=== PATIENT | female | born 1950 | race American Indian/Alaskan Native ===

== ENCOUNTER 2021-03-05 02:05 | Inpatient (IN) | payer MEDICARE ==
[2021-03-05] MEDS ORDERED: MELATONIN 5 MG TAB PO PRN (03:13)
[2021-03-05] MEDS ORDERED: LORazepam 2 MG/ML VIAL IM PRN (03:43)
[2021-03-05] MEDS ORDERED: HALOPERIDOL LACTATE 5 MG/1 ML INJ IM PRN (03:45)
[2021-03-05] MEDS ORDERED: LORazepam 2 MG/ML VIAL IM ONE (06:00)
--- NOTE | 2021-03-05 07:17 | History and Physical Report ---
GP History & Physical - History of Present Illness Date of admission: 03/04/21 Date of Examination: 03/05/21 Reason for Admission: Danger to self, Failure of Outpatient Treatment History of Present Illness: Bethanie Tracey is a 70y/o female patient who was admitted to [facility] for bizarre behavior and psychosis. During my evaluation of the patient she is uncooperative, argumentative. The patient appears paranoid and guarded. She refused to answer any questions. The patient tells me her name is not "Mrs Kovacs" and states she "does not have to tell me." PAST PSYCHIATRIC HISTORY: Could not obtain PAST MEDICAL HISTORY: None reported or document Family Psychiatric History: None reported or documented SOCIAL HISTORY Could not obtain REVIEW OF SYSTEMS Could not obtain MENTAL STATUS EXAMINATION could not obtain Assessment and Plan (1) Schizophrenia Current Visit: Yes Status: Acute Treatment Plan Patient admitted for inpatient psychiatric evaluation, medication adjustment and close monitoring The patient's behavior, mood, sleep and appetite will be closely monitored. Patient enrolled in individual and group therapeutic sessions and encouraged to attend. Patient provided with a safe and structured environment. Patient's physical health needs will be addressed by the Hospitalist. Hospitalist Consulted Labs including CBC, CMP, Lipid profile and Hemoglobin A1C levels ordered for baseline reference Social Assessment will be completed and the Engine Dispatcher will work with patient and family to ensure a suitable and safe disposition Medication adjustment will be made as clinically indicated Started Home meds Usual Wellness Faith/Preservation: - Start Trazodone 50 mg po QHS & 50 mg po QHS PRN between 10 PM & 2 AM for insomnia - Start Melatonin 5 mg po QHS to promote circadian rhythm The patient agreed on the treatment plan, understood the risk, benefit, alternative treatment, potential consequence of no treatment, and gave informed consent. Estimated days: 6 Post hospital care: primary care provider, psychiatric provider Case staffed with Dr. Naranjo Legal Status: Voluntary Reaction to Hospitalization: Accepting Medications and Allergies Allergies Allergy/AdvReac Type Severity Reaction Status Date / Time No Known Drug Allergies Allergy Unknown Verified 03/05/21 02:54 Home Medications Medication Instructions Recorded Confirmed Last Taken Type Benztropine [Cogentin] 1 mg PO DAILY 03/05/21 03/05/21 Unknown History OLANZapine [Zyprexa] 5 mg PO DAILY 03/05/21 03/05/21 Unknown History carBAMazepine [TEGretol] 200 mg PO BID 03/05/21 03/05/21 Unknown History lisinopriL [Lisinopril] 10 mg PO DAILY 03/05/21 03/05/21 Unknown History Active Meds: Active Medications Haloperidol Lactate (Haloperidol Lactate 5 Mg/1 Ml Inj) 5 mg IM Q6H PRN PRN Reason: Agitation Last Admin: 03/05/21 06:24 Dose: 5 mg Documented by: Lorazepam (Lorazepam 2 Mg/Ml Vial) 2 mg IM Q6H PRN PRN Reason: Agitation Melatonin (Melatonin 5 Mg Tab) 5 mg PO QHS PRN PRN Reason: Sleep Trazodone HCl (Trazodone 50 Mg Tab) 50 mg PO QHS KENJI Results - Results Labs/Vitals: Laboratory Last Values POC Glucose 72 mg/dL (70-105) 03/05/21 05:15 Last Vital Signs Temp 98.8 F 03/05/21 05:30 Pulse 140 H 03/05/21 05:30 Resp 20 03/05/21 05:30 BP 160/102 03/05/21 05:30 Pulse Ox 96 03/05/21 05:30 Physical Examination - Constitutional Vitals: Vital Signs Temp Pulse Resp BP Pulse Ox 98.8 F 140 H 20 160/102 96 03/05/21 05:30 03/05/21 05:30 03/05/21 05:30 03/05/21 05:30 03/05/21 05:30 Temperature -Last 24 Hours Temperature 98.8 F Temperature 98.8 F Mental Status Exam - Vital signs Last Vital Signs Temp 98.8 F 03/05/21 05:30 Pulse 140 H 03/05/21 05:30 Resp 20 03/05/21 05:30 BP 160/102 03/05/21 05:30 Pulse Ox 96 03/05/21 05:30 Physician Certification - Certification Statement Physician Certification Statement: This is an acknowledgement statement that BETHANIE TRACEY is a 70 year old F who requires inpatient psychiatric admission for treatment which could reasonably be expected to improve the patient's condition for Estimated period of time patient will need to remain in the hospital: [ ] Plan for post-hospital care: [ ]
[2021-03-05] MEDS ORDERED: LISINOPRIL 10 MG TAB PO SCH (10:00)
[2021-03-05] MEDS: carBAMazepine 200 MG TAB PO SCH ×2 (10:14→21:04)
[2021-03-05] MEDS: BENZTROPINE 1 MG TAB PO SCH (10:15)
[2021-03-05 11:12] LABS: Basophils % (Auto) 1.1 % (0.0-1.8); Eosinophils # (Auto) 0.1 K/mm3 (0.0-0.4); Eosinophils % (Auto) 2.6 % (0.0-4.3); Hematocrit 35.9 % (30.3-42.9); Hemoglobin 12.6 gm/dl (10.1-14.3); Lymphocytes # (Auto) 1.2 K/mm3 (1.2-5.4); Lymphocytes % (Auto) 30.3 % (13.4-35.0); Mean Corpuscular HGB Conc 35 % (30-34); Mean Corpuscular Volume 88 fl (79-97); Monocytes # (Auto) 0.2 K/mm3 (0.0-0.8); Monocytes % (Auto) 5.6 % (0.0-7.3); Platelet Count 218 K/mm3 (140-440); Red Blood Count 4.06 M/mm3 (3.65-5.03); Red Cell Distribution Width 13.4 % (13.2-15.2)
[2021-03-05 11:35] LABS: Albumin 3.1 g/dL (3.9-5); Blood Urea Nitrogen 19 mg/dL (7-17); Calcium 9.2 mg/dL (8.4-10.2); HDL Cholesterol 43 mg/dL (40-59); Hemolysis Index 10; LDL Cholesterol,Direct 159 mg/dL (50-130)
[2021-03-05 11:47] LABS: Alanine Aminotransferase < 5 units/L (7-56); BUN/Creatinine Ratio 27
[2021-03-05] MEDS ORDERED: hydrALAZINE 10 MG TAB PO PRN (15:21)
--- NOTE | 2021-03-05 15:24 | Consultation ---
History of Present Illness - Reason for Consult Consult date: 03/05/21 HTN Requesting physician: ESTRADA MELO - History of Present Illness Patient is a 70-year-old female with past medical history significant for paranoia, schizophrenia, prior history of hypokalemia who is being admitted to the [facility] psych unit for bizarre behavior and speech and aggressive behavior towards her . Patient was described as being uncooperative and argumentative appeared to be paranoid and guarded and to the psych team was not answering any questions. Admission her blood pressure was mildly elevated although improving today initial systolic blood pressure was 160 with diastolic of 102 Past History Past Medical History: hypertension, other (Bipolar, schizophrenia) Past Surgical History: Other Social history: no significant social history Family history: no significant family history Medications and Allergies Allergies Allergy/AdvReac Type Severity Reaction Status Date / Time No Known Drug Allergies Allergy Unknown Verified 03/05/21 02:54 Home Medications Medication Instructions Recorded Confirmed Last Taken Type Benztropine [Cogentin] 1 mg PO DAILY 03/05/21 03/05/[address] [DepaKOTE DR] 500 mg PO BID 03/05/21 03/05/21 Unknown History OLANZapine [Zyprexa] 5 mg PO DAILY 03/05/21 03/05/21 Unknown History Risperdal 1 mg PO DAILY 03/05/21 03/05/21 Unknown History carBAMazepine [TEGretol] 200 mg PO BID 03/05/21 03/05/21 Unknown History lisinopriL [Lisinopril] 10 mg PO DAILY 03/05/21 03/05/21 Unknown History Active Meds: Active Medications Benztropine Mesylate (Benztropine 1 Mg Tab) 1 mg PO DAILY [facility] Last Admin: 03/05/21 10:15 Dose: Not Given Documented by: Carbamazepine (Carbamazepine 200 Mg Tab) 200 mg PO BID [facility] Last Admin: 03/05/21 10:14 Dose: Not Given Documented by: Haloperidol Lactate (Haloperidol Lactate 5 Mg/1 Ml Inj) 5 mg IM Q6H PRN PRN Reason: Agitation Last Admin: 03/05/21 06:24 Dose: 5 mg Documented by: Lisinopril (Lisinopril 10 Mg Tab) 10 mg PO DAILY [facility] Last Admin: 03/05/21 10:14 Dose: Not Given Documented by: Lorazepam (Lorazepam 2 Mg/Ml Vial) 2 mg IM Q6H PRN PRN Reason: Agitation Melatonin (Melatonin 5 Mg Tab) 5 mg PO QHS PRN PRN Reason: Sleep Olanzapine (Olanzapine 5 Mg Tab) 5 mg PO DAILY [facility] Last Admin: 03/05/21 10:14 Dose: Not Given Documented by: Trazodone HCl (Trazodone 50 Mg Tab) 50 mg PO QHS KENJI Review of Systems ROS unobtainable: due to mental status Exam - Physical Exam Narrative exam: VITAL SIGNS: Reviewed. GENERAL: The patient appears normally developed, Vital signs as documented. HEAD: No signs of head trauma. EYES: Pupils are equal. Extraocular motions intact. EARS: Hearing grossly intact. MOUTH: Oropharynx is normal. NECK: No adenopathy, no JVD. CHEST: Chest with clear breath sounds bilaterally. No wheezes, rales, or rhonchi. CARDIAC: Regular rate and rhythm. S1 and S2, without murmurs, gallops, or rubs. VASCULAR: No Edema. Peripheral pulses normal and equal in all extremities. ABDOMEN: Soft, non tender and non distended. No rebound or guarding, and no masses palpated. Bowel Sounds normal. MUSCULOSKELETAL: Good range of motion of all major joints. Extremities without clubbing, cyanosis or edema. NEUROLOGIC EXAM: Alert although orientation could not be verified as patient withdrawn no focal sensory or strength deficits. PSYCHIATRIC: Mood normal. SKIN: detail exam as documented in skin assessment - Constitutional Vitals: Temp Pulse Resp BP Pulse Ox 98.8 F 67 17 152/70 95 03/05/21 08:46 03/05/21 10:14 03/05/21 08:46 03/05/21 10:14 03/05/21 08:47 Results - Labs CBC & Chem 7: 03/05/21 10:42 03/05/21 16:06 Labs: Abnormal lab results 03/05/21 03/05/21 03/05/21 Range/Units 10:42 10:42 11:51 WBC 4.1 L (4.5-11.0) K/mm3 MCHC 35 H (30-34) % BUN 19 H (7-17) mg/dL Glucose 60 L (65-100) mg/dL POC Glucose 132 H (70-105) mg/dL ALT < 5 L (7-56) units/L Total Protein 5.9 L (6.3-8.2) g/dL Albumin 3.1 L (3.9-5) g/dL Cholesterol 211 H (50-199) mg/dL LDL Cholesterol Direct 159 H (50-130) mg/dL Assessment and Plan Patient is a 70-year-old female with past medical history significant for paranoia, schizophrenia, prior history of hypokalemia who is being admitted to the [facility] psych unit for bizarre behavior and speech and aggressive behavior towards her . Patient was described as being uncooperative and argumentative appeared to be paranoid and guarded and to the psych team was not answering any questions. Admission her blood pressure was mildly elevated although improving today initial systolic blood pressure was 160 with diastolic of 102 Uncontrolled hypertension Schizophrenia Bipolar disorder Acute psychosis noW improving History of hypokalemia Plan -Continue supportive care -Increase lisinopril to 20 mg daily and add 10 mg of hydralazine every 6 hours as needed -Monitor potassium level intermittently while in the hospital -Continue appropriate psychiatric medications per psych team -DVT and GI prophylaxis with ambulation and diet respectively -Thank you for allowing us take part in the care of your patient as an information become available more therapeutic or diagnostic measures need to be presented please reconsult if needed.
[2021-03-05] MEDS: LISINOPRIL 10 MG TAB PO SCH (16:30)
[2021-03-05 16:48] LABS: BUN/Creatinine Ratio 23; Blood Urea Nitrogen 21 mg/dL (7-17); Calcium 9.3 mg/dL (8.4-10.2); Hemolysis Index 14
[2021-03-05] MEDS: traZODone 50 MG TAB PO SCH (21:03)
--- NOTE | 2021-03-06 09:10 | Progress Note ---
Subjective Date of service: 03/06/21 Subjective Comment: 03/06/2021: The patient was seen resting in bed. The patient refused to answer questions. Unable to assess SI/HI/AVHs. Per nurse, the patient is non compliant with medications. REVIEW OF SYSTEMS Could not obtain MENTAL STATUS EXAMINATION could not obtain Assessment and Plan (1) Schizophrenia Current Visit: Yes Status: Acute Treatment Plan Patient admitted for inpatient psychiatric evaluation, medication adjustment and close monitoring The patient's behavior, mood, sleep and appetite will be closely monitored. Patient enrolled in individual and group therapeutic sessions and encouraged to attend. Patient provided with a safe and structured environment. Patient's physical health needs will be addressed by the Hospitalist. Hospitalist Consulted Labs including CBC, CMP, Lipid profile and Hemoglobin A1C levels ordered for baseline reference Social Assessment will be completed and the Senior Front End Engineer will work with patient and family to ensure a suitable and safe disposition Medication adjustment will be made as clinically indicated Started Home meds Usual Wellness Zoroastrianism/Preservation: - Start Trazodone 50 mg po QHS & 50 mg po QHS PRN between 10 PM & 2 AM for insomnia - Start Melatonin 5 mg po QHS to promote circadian rhythm The patient agreed on the treatment plan, understood the risk, benefit, alternative treatment, potential consequence of no treatment, and gave informed consent. Estimated days: 6 Post hospital care: primary care provider, psychiatric provider Case staffed with Dr. Naranjo Legal Status: Voluntary Reaction to Hospitalization: Accepting Medications and Allergies Allergies Medications and Allergies Allergies Allergy/AdvReac Type Severity Reaction Status Date / Time No Known Drug Allergies Allergy Unknown Verified 03/05/21 02:54 Home Medications Medication Instructions Recorded Confirmed Last Taken Type Benztropine [Cogentin] 1 mg PO DAILY 03/05/21 03/05/21 Unknown History Divalproex [Serafin MONGE] 500 mg PO BID 03/05/21 03/05/21 Unknown History OLANZapine [Zyprexa] 5 mg PO DAILY 03/05/21 03/05/21 Unknown History Risperdal 1 mg PO DAILY 03/05/21 03/05/21 Unknown History carBAMazepine [TEGretol] 200 mg PO BID 03/05/21 03/05/21 Unknown History lisinopriL [Lisinopril] 10 mg PO DAILY 03/05/21 03/05/21 Unknown History Active Meds: Active Medications Benztropine Mesylate (Benztropine 1 Mg Tab) 1 mg PO DAILY [facility] Last Admin: 03/05/21 10:15 Dose: Not Given Documented by: Carbamazepine (Carbamazepine 200 Mg Tab) 200 mg PO BID [facility] Last Admin: 03/05/21 21:04 Dose: Not Given Documented by: Haloperidol (Haloperidol 5 Mg Tab) 5 mg PO BID [facility] Haloperidol Lactate (Haloperidol Lactate 5 Mg/1 Ml Inj) 5 mg IM Q6H PRN PRN Reason: Agitation Last Admin: 03/05/21 06:24 Dose: 5 mg Documented by: Haloperidol Lactate (Haloperidol Lactate 5 Mg/1 Ml Inj) 5 mg IM BID [facility] Hydralazine HCl (Hydralazine 10 Mg Tab) 10 mg PO Q6H PRN PRN Reason: Hypertension Lisinopril (Lisinopril 10 Mg Tab) 20 mg PO DAILY [facility] Last Admin: 03/05/21 16:30 Dose: Not Given Documented by: Lorazepam (Lorazepam 2 Mg/Ml Vial) 2 mg IM Q6H PRN PRN Reason: Agitation Melatonin (Melatonin 5 Mg Tab) 5 mg PO QHS PRN PRN Reason: Sleep Olanzapine (Olanzapine 5 Mg Tab) 5 mg PO DAILY [facility] Last Admin: 03/05/21 10:14 Dose: Not Given Documented by: Trazodone HCl (Trazodone 50 Mg Tab) 50 mg PO QHS [facility] Last Admin: 03/05/21 21:03 Dose: Not Given Documented by: Results - Results Labs/Vitals: Laboratory Last Values WBC 4.1 K/mm3 (4.5-11.0) L 03/05/21 10:42 RBC 4.06 M/mm3 (3.65-5.03) 03/05/21 10:42 Hgb 12.6 gm/dl (10.1-14.3) 03/05/21 10:42 Hct 35.9 % (30.3-42.9) 03/05/21 10:42 MCV 88 fl (79-97) 03/05/21 10:42 MCH 31 pg (28-32) 03/05/21 10:42 MCHC 35 % (30-34) H 03/05/21 10:42 RDW 13.4 % (13.2-15.2) 03/05/21 10:42 Plt Count 218 K/mm3 (140-440) 03/05/21 10:42 Lymph % (Auto) 30.3 % (13.4-35.0) 03/05/21 10:42 [place] % (Auto) 5.6 % (0.0-7.3) 03/05/21 10:42 Eos % (Auto) 2.6 % (0.0-4.3) 03/05/21 10:42 Baso % (Auto) 1.1 % (0.0-1.8) 03/05/21 10:42 Lymph # (Auto) 1.2 K/mm3 (1.2-5.4) 03/05/21 10:42 [place] # (Auto) 0.2 K/mm3 (0.0-0.8) 03/05/21 10:42 Eos # (Auto) 0.1 K/mm3 (0.0-0.4) 03/05/21 10:42 Baso # (Auto) 0.0 K/mm3 (0.0-0.1) 03/05/21 10:42 Seg Neutrophils % 60.4 % (40.0-70.0) 03/05/21 10:42 Seg Neutrophils # 2.5 K/mm3 (1.8-7.7) 03/05/21 10:42 Sodium 141 mmol/L (137-145) 03/05/21 16:06 Potassium 3.7 mmol/L (3.6-5.0) 03/05/21 16:06 Chloride 105.7 mmol/L (98-107) 03/05/21 16:06 Carbon Dioxide 29 mmol/L (22-30) 03/05/21 16:06 Anion Gap 10 mmol/L 03/05/21 16:06 BUN 21 mg/dL (7-17) H 03/05/21 16:06 Creatinine 0.9 mg/dL (0.6-1.2) 03/05/21 16:06 Estimated GFR > 60 ml/min 03/05/21 16:06 BUN/Creatinine Ratio 23 % 03/05/21 16:06 Glucose 111 mg/dL (65-100) H 03/05/21 16:06 POC Glucose 82 mg/dL (70-105) 03/06/21 06:03 Hemoglobin A1c 5.5 % (4-6) 03/05/21 10:42 Calcium 9.3 mg/dL (8.4-10.2) 03/05/21 16:06 Total Bilirubin 0.40 mg/dL (0.1-1.2) 03/05/21 10:42 AST 15 units/L (5-40) 03/05/21 10:42 ALT < 5 units/L (7-56) L 03/05/21 10:42 Alkaline Phosphatase 42 units/L (35-129) 03/05/21 10:42 Total Protein 5.9 g/dL (6.3-8.2) L 03/05/21 10:42 Albumin 3.1 g/dL (3.9-5) L 03/05/21 10:42 Albumin/Globulin Ratio 1.1 % 03/05/21 10:42 Triglycerides 99 mg/dL (2-149) 03/05/21 10:42 Cholesterol 211 mg/dL (50-199) H 03/05/21 10:42 LDL Cholesterol Direct 159 mg/dL (50-130) H 03/05/21 10:42 HDL Cholesterol 43 mg/dL (40-59) 03/05/21 10:42 Cholesterol/HDL Ratio 4.90 % 03/05/21 10:42 TSH 0.673 mlU/mL (0.270-4.200) 03/05/21 10:42 Last Vital Signs Temp 98.4 F 03/06/21 07:51 Pulse 59 L 03/06/21 07:51 Resp 16 03/06/21 07:51 BP 125/78 03/06/21 07:51 Pulse Ox 100 03/06/21 07:51
[2021-03-06] MEDS: BENZTROPINE 1 MG TAB PO SCH (11:26)
[2021-03-06] MEDS: HALOPERIDOL 5 MG TAB PO SCH ×2 (11:26→21:12)
[2021-03-06] MEDS: carBAMazepine 200 MG TAB PO SCH ×2 (11:27→21:12)
[2021-03-06] MEDS: LISINOPRIL 10 MG TAB PO SCH (11:27)
[2021-03-06] MEDS: HALOPERIDOL LACTATE 5 MG/1 ML INJ IM SCH (11:31)
[2021-03-06] MEDS: traZODone 50 MG TAB PO SCH (21:12)
[2021-03-07] MEDS: HALOPERIDOL LACTATE 5 MG/1 ML INJ IM SCH ×3 (03:02→21:06)
--- NOTE | 2021-03-07 08:09 | Progress Note ---
Subjective Date of service: 03/07/21 Subjective Comment: 03/06/2021: The patient was seen resting in bed. The patient refused to answer questions. Unable to assess SI/HI/AVHs. Per nurse, the patient is non compliant with medications. 03/07/2021: The patient was seen resting in bed, she continues to be mute. Unable to assess SI/HI/AVHs. Per nurse, the patient had a quiet night. No changes made today. REVIEW OF SYSTEMS Could not obtain MENTAL STATUS EXAMINATION could not obtain Assessment and Plan (1) Schizophrenia Current Visit: Yes Status: Acute Treatment Plan Patient admitted for inpatient psychiatric evaluation, medication adjustment and close monitoring The patient's behavior, mood, sleep and appetite will be closely monitored. Patient enrolled in individual and group therapeutic sessions and encouraged to attend. Patient provided with a safe and structured environment. Patient's physical health needs will be addressed by the Hospitalist. Hospitalist Consulted Labs including CBC, CMP, Lipid profile and Hemoglobin A1C levels ordered for baseline reference Social Assessment will be completed and the Auto Body Estimator will work with patient and family to ensure a suitable and safe disposition Medication adjustment will be made as clinically indicated Started Home meds Continue Haldol 5mg po BID and please give IM if patient refuse PO. Usual Wellness Bahai/Preservation: - Start Trazodone 50 mg po QHS & 50 mg po QHS PRN between 10 PM & 2 AM for insomnia - Start Melatonin 5 mg po QHS to promote circadian rhythm The patient agreed on the treatment plan, understood the risk, benefit, alternative treatment, potential consequence of no treatment, and gave informed consent. Estimated days: 4 Post hospital care: primary care provider, psychiatric provider Case staffed with Dr. Naranjo Legal Status: Voluntary Reaction to Hospitalization: Accepting Medications and Allergies Allergies Medications and Allergies Allergies Allergy/AdvReac Type Severity Reaction Status Date / Time No Known Drug Allergies Allergy Unknown Verified 03/05/21 02:54 Home Medications Medication Instructions Recorded Confirmed Last Taken Type Benztropine [Cogentin] 1 mg PO DAILY 03/05/21 03/05/21 Unknown History Divalproex [Serafin MONGE] 500 mg PO BID 03/05/21 03/05/21 Unknown History OLANZapine [Zyprexa] 5 mg PO DAILY 03/05/21 03/05/21 Unknown History Risperdal 1 mg PO DAILY 03/05/21 03/05/21 Unknown History carBAMazepine [TEGretol] 200 mg PO BID 03/05/21 03/05/21 Unknown History lisinopriL [Lisinopril] 10 mg PO DAILY 03/05/21 03/05/21 Unknown History Active Meds: Active Medications Benztropine Mesylate (Benztropine 1 Mg Tab) 1 mg PO DAILY [facility] Last Admin: 03/06/21 11:26 Dose: Not Given Documented by: Carbamazepine (Carbamazepine 200 Mg Tab) 200 mg PO BID [facility] Last Admin: 03/06/21 21:12 Dose: 200 mg Documented by: Haloperidol (Haloperidol 5 Mg Tab) 5 mg PO BID [facility] Last Admin: 03/06/21 21:12 Dose: 5 mg Documented by: Haloperidol Lactate (Haloperidol Lactate 5 Mg/1 Ml Inj) 5 mg IM Q6H PRN PRN Reason: Agitation Last Admin: 03/05/21 06:24 Dose: 5 mg Documented by: Haloperidol Lactate (Haloperidol Lactate 5 Mg/1 Ml Inj) 5 mg IM BID [facility] Last Admin: 03/07/21 03:02 Dose: Not Given Documented by: Hydralazine HCl (Hydralazine 10 Mg Tab) 10 mg PO Q6H PRN PRN Reason: Hypertension Lisinopril (Lisinopril 10 Mg Tab) 20 mg PO DAILY [facility] Last Admin: 03/06/21 11:27 Dose: Not Given Documented by: Lorazepam (Lorazepam 2 Mg/Ml Vial) 2 mg IM Q6H PRN PRN Reason: Agitation Melatonin (Melatonin 5 Mg Tab) 5 mg PO QHS PRN PRN Reason: Sleep Olanzapine (Olanzapine 5 Mg Tab) 5 mg PO DAILY [facility] Last Admin: 03/06/21 11:27 Dose: Not Given Documented by: Trazodone HCl (Trazodone 50 Mg Tab) 50 mg PO QHS [facility] Last Admin: 03/06/21 21:12 Dose: 50 mg Documented by: Results - Results Labs/Vitals: Laboratory Last Values WBC 4.1 K/mm3 (4.5-11.0) L 03/05/21 10:42 RBC 4.06 M/mm3 (3.65-5.03) 03/05/21 10:42 Hgb 12.6 gm/dl (10.1-14.3) 03/05/21 10:42 Hct 35.9 % (30.3-42.9) 03/05/21 10:42 MCV 88 fl (79-97) 03/05/21 10:42 MCH 31 pg (28-32) 03/05/21 10:42 MCHC 35 % (30-34) H 03/05/21 10:42 RDW 13.4 % (13.2-15.2) 03/05/21 10:42 Plt Count 218 K/mm3 (140-440) 03/05/21 10:42 Lymph % (Auto) 30.3 % (13.4-35.0) 03/05/21 10:42 [place] % (Auto) 5.6 % (0.0-7.3) 03/05/21 10:42 Eos % (Auto) 2.6 % (0.0-4.3) 03/05/21 10:42 Baso % (Auto) 1.1 % (0.0-1.8) 03/05/21 10:42 Lymph # (Auto) 1.2 K/mm3 (1.2-5.4) 03/05/21 10:42 [place] # (Auto) 0.2 K/mm3 (0.0-0.8) 03/05/21 10:42 Eos # (Auto) 0.1 K/mm3 (0.0-0.4) 03/05/21 10:42 Baso # (Auto) 0.0 K/mm3 (0.0-0.1) 03/05/21 10:42 Seg Neutrophils % 60.4 % (40.0-70.0) 03/05/21 10:42 Seg Neutrophils # 2.5 K/mm3 (1.8-7.7) 03/05/21 10:42 Sodium 141 mmol/L (137-145) 03/05/21 16:06 Potassium 3.7 mmol/L (3.6-5.0) 03/05/21 16:06 Chloride 105.7 mmol/L (98-107) 03/05/21 16:06 Carbon Dioxide 29 mmol/L (22-30) 03/05/21 16:06 Anion Gap 10 mmol/L 03/05/21 16:06 BUN 21 mg/dL (7-17) H 03/05/21 16:06 Creatinine 0.9 mg/dL (0.6-1.2) 03/05/21 16:06 Estimated GFR > 60 ml/min 03/05/21 16:06 BUN/Creatinine Ratio 23 % 03/05/21 16:06 Glucose 111 mg/dL (65-100) H 03/05/21 16:06 POC Glucose 93 mg/dL (70-105) 03/07/21 06:45 Hemoglobin A1c 5.5 % (4-6) 03/05/21 10:42 Calcium 9.3 mg/dL (8.4-10.2) 03/05/21 16:06 Total Bilirubin 0.40 mg/dL (0.1-1.2) 03/05/21 10:42 AST 15 units/L (5-40) 03/05/21 10:42 ALT < 5 units/L (7-56) L 03/05/21 10:42 Alkaline Phosphatase 42 units/L (35-129) 03/05/21 10:42 Total Protein 5.9 g/dL (6.3-8.2) L 03/05/21 10:42 Albumin 3.1 g/dL (3.9-5) L 03/05/21 10:42 Albumin/Globulin Ratio 1.1 % 03/05/21 10:42 Triglycerides 99 mg/dL (2-149) 03/05/21 10:42 Cholesterol 211 mg/dL (50-199) H 03/05/21 10:42 LDL Cholesterol Direct 159 mg/dL (50-130) H 03/05/21 10:42 HDL Cholesterol 43 mg/dL (40-59) 03/05/21 10:42 Cholesterol/HDL Ratio 4.90 % 03/05/21 10:42 TSH 0.673 mlU/mL (0.270-4.200) 03/05/21 10:42 Last Vital Signs Temp 97.5 F L 03/06/21 19:39 Pulse 73 03/06/21 19:39 Resp 18 03/06/21 19:39 BP 137/77 03/06/21 19:39 Pulse Ox 97 03/06/21 19:39
[2021-03-07] MEDS: HALOPERIDOL 5 MG TAB PO SCH ×2 (10:27→21:05)
[2021-03-07] MEDS: carBAMazepine 200 MG TAB PO SCH ×2 (10:27→21:05)
[2021-03-07] MEDS: BENZTROPINE 1 MG TAB PO SCH (10:27)
[2021-03-07] MEDS: LISINOPRIL 10 MG TAB PO SCH (10:27)
[2021-03-07] MEDS: traZODone 50 MG TAB PO SCH (21:05)
[2021-03-08] MEDS: carBAMazepine 200 MG TAB PO SCH ×2 (09:06→21:05)
[2021-03-08] MEDS: HALOPERIDOL 5 MG TAB PO SCH ×2 (09:06→21:05)
[2021-03-08] MEDS: BENZTROPINE 1 MG TAB PO SCH (09:07)
[2021-03-08] MEDS: LISINOPRIL 10 MG TAB PO SCH (09:07)
[2021-03-08] MEDS: HALOPERIDOL LACTATE 5 MG/1 ML INJ IM SCH (09:09)
--- NOTE | 2021-03-08 09:10 | Progress Note ---
Subjective Date of service: 03/08/21 Principal diagnosis: Schizophrenia Subjective Comment: The patient was seen today. She is avoidant and uncooperative. She is upset and tells me she was sleeping fine until I woke her up. She tells me her name is not Mrs. Kovacs. She refuses to answer any questions. REVIEW OF SYSTEMS Could not obtain MENTAL STATUS EXAMINATION could not obtain Assessment and Plan (1) Schizophrenia Current Visit: Yes Status: Acute Treatment Plan Patient admitted for inpatient psychiatric evaluation, medication adjustment and close monitoring The patient's behavior, mood, sleep and appetite will be closely monitored. Patient enrolled in individual and group therapeutic sessions and encouraged to attend. Patient provided with a safe and structured environment. Patient's physical health needs will be addressed by the Hospitalist. Hospitalist Consulted Labs including CBC, CMP, Lipid profile and Hemoglobin A1C levels ordered for baseline reference Social Assessment will be completed and the Biotechnician will work with patient and family to ensure a suitable and safe disposition Medication adjustment will be made as clinically indicated Will discuss with family about starting a long acting injection and wean off po antispychotics Usual Wellness Latter-Day/Preservation: - Start Trazodone 50 mg po QHS & 50 mg po QHS PRN between 10 PM & 2 AM for insomnia - Start Melatonin 5 mg po QHS to promote circadian rhythm The patient agreed on the treatment plan, understood the risk, benefit, alternative treatment, potential consequence of no treatment, and gave informed consent. Estimated days: 4 Post hospital care: primary care provider, psychiatric provider Case staffed with Dr. Naranjo Medications and Allergies Allergies Allergy/AdvReac Type Severity Reaction Status Date / Time No Known Drug Allergies Allergy Unknown Verified 03/05/21 02:54 Home Medications Medication Instructions Recorded Confirmed Last Taken Type Benztropine [Cogentin] 1 mg PO DAILY 03/05/21 03/05/21 Unknown History Divalproex [Serafin MONGE] 500 mg PO BID 03/05/21 03/05/21 Unknown History OLANZapine [Zyprexa] 5 mg PO DAILY 03/05/21 03/05/21 Unknown History Risperdal 1 mg PO DAILY 03/05/21 03/05/21 Unknown History carBAMazepine [TEGretol] 200 mg PO BID 03/05/21 03/05/21 Unknown History lisinopriL [Lisinopril] 10 mg PO DAILY 03/05/21 03/05/21 Unknown History Active Meds: Active Medications Benztropine Mesylate (Benztropine 1 Mg Tab) 1 mg PO DAILY [facility] Last Admin: 03/08/21 09:07 Dose: 1 mg Documented by: Carbamazepine (Carbamazepine 200 Mg Tab) 200 mg PO BID [facility] Last Admin: 03/08/21 09:06 Dose: 200 mg Documented by: Haloperidol (Haloperidol 5 Mg Tab) 5 mg PO BID [facility] Last Admin: 03/08/21 09:06 Dose: 5 mg Documented by: Haloperidol Lactate (Haloperidol Lactate 5 Mg/1 Ml Inj) 5 mg IM Q6H PRN PRN Reason: Agitation Last Admin: 03/05/21 06:24 Dose: 5 mg Documented by: Haloperidol Lactate (Haloperidol Lactate 5 Mg/1 Ml Inj) 5 mg IM BID [facility] Last Admin: 03/07/21 21:06 Dose: Not Given Documented by: Hydralazine HCl (Hydralazine 10 Mg Tab) 10 mg PO Q6H PRN PRN Reason: Hypertension Lisinopril (Lisinopril 10 Mg Tab) 20 mg PO DAILY [facility] Last Admin: 03/08/21 09:07 Dose: 20 mg Documented by: Lorazepam (Lorazepam 2 Mg/Ml Vial) 2 mg IM Q6H PRN PRN Reason: Agitation Melatonin (Melatonin 5 Mg Tab) 5 mg PO QHS PRN PRN Reason: Sleep Olanzapine (Olanzapine 5 Mg Tab) 5 mg PO DAILY [facility] Last Admin: 03/08/21 09:06 Dose: 5 mg Documented by: Trazodone HCl (Trazodone 50 Mg Tab) 50 mg PO QHS [facility] Last Admin: 03/07/21 21:05 Dose: 50 mg Documented by: Results - Results Labs/Vitals: Laboratory Last Values WBC 4.1 K/mm3 (4.5-11.0) L 03/05/21 10:42 RBC 4.06 M/mm3 (3.65-5.03) 03/05/21 10:42 Hgb 12.6 gm/dl (10.1-14.3) 03/05/21 10:42 Hct 35.9 % (30.3-42.9) 03/05/21 10:42 MCV 88 fl (79-97) 03/05/21 10:42 MCH 31 pg (28-32) 03/05/21 10:42 MCHC 35 % (30-34) H 03/05/21 10:42 RDW 13.4 % (13.2-15.2) 03/05/21 10:42 Plt Count 218 K/mm3 (140-440) 03/05/21 10:42 Lymph % (Auto) 30.3 % (13.4-35.0) 03/05/21 10:42 [place] % (Auto) 5.6 % (0.0-7.3) 03/05/21 10:42 Eos % (Auto) 2.6 % (0.0-4.3) 03/05/21 10:42 Baso % (Auto) 1.1 % (0.0-1.8) 03/05/21 10:42 Lymph # (Auto) 1.2 K/mm3 (1.2-5.4) 03/05/21 10:42 [place] # (Auto) 0.2 K/mm3 (0.0-0.8) 03/05/21 10:42 Eos # (Auto) 0.1 K/mm3 (0.0-0.4) 03/05/21 10:42 Baso # (Auto) 0.0 K/mm3 (0.0-0.1) 03/05/21 10:42 Seg Neutrophils % 60.4 % (40.0-70.0) 03/05/21 10:42 Seg Neutrophils # 2.5 K/mm3 (1.8-7.7) 03/05/21 10:42 Sodium 141 mmol/L (137-145) 03/05/21 16:06 Potassium 3.7 mmol/L (3.6-5.0) 03/05/21 16:06 Chloride 105.7 mmol/L (98-107) 03/05/21 16:06 Carbon Dioxide 29 mmol/L (22-30) 03/05/21 16:06 Anion Gap 10 mmol/L 03/05/21 16:06 BUN 21 mg/dL (7-17) H 03/05/21 16:06 Creatinine 0.9 mg/dL (0.6-1.2) 03/05/21 16:06 Estimated GFR > 60 ml/min 03/05/21 16:06 BUN/Creatinine Ratio 23 % 03/05/21 16:06 Glucose 111 mg/dL (65-100) H 03/05/21 16:06 POC Glucose 82 mg/dL (70-105) 03/08/21 08:00 Hemoglobin A1c 5.5 % (4-6) 03/05/21 10:42 Calcium 9.3 mg/dL (8.4-10.2) 03/05/21 16:06 Total Bilirubin 0.40 mg/dL (0.1-1.2) 03/05/21 10:42 AST 15 units/L (5-40) 03/05/21 10:42 ALT < 5 units/L (7-56) L 03/05/21 10:42 Alkaline Phosphatase 42 units/L (35-129) 03/05/21 10:42 Total Protein 5.9 g/dL (6.3-8.2) L 03/05/21 10:42 Albumin 3.1 g/dL (3.9-5) L 03/05/21 10:42 Albumin/Globulin Ratio 1.1 % 03/05/21 10:42 Triglycerides 99 mg/dL (2-149) 03/05/21 10:42 Cholesterol 211 mg/dL (50-199) H 03/05/21 10:42 LDL Cholesterol Direct 159 mg/dL (50-130) H 03/05/21 10:42 HDL Cholesterol 43 mg/dL (40-59) 03/05/21 10:42 Cholesterol/HDL Ratio 4.90 % 03/05/21 10:42 TSH 0.673 mlU/mL (0.270-4.200) 03/05/21 10:42 Last Vital Signs Temp 98.5 F 03/07/21 19:41 Pulse 89 03/08/21 09:07 Resp 16 03/07/21 19:41 BP 127/76 03/08/21 09:07 Pulse Ox 99 03/07/21 19:41
[2021-03-08] MEDS ORDERED: HALOPERIDOL DECANOATE 100 MG/1 ML INJ IM ONE (09:45)
--- NOTE | 2021-03-08 09:49 | Event Note ---
Date: 03/08/21 Spoke with the patient's spouse to discuss the patient's progress and treatment plan. He says the patient was on a monthly injection but he doesn't know the name of it. He says she hasn't had one in a couple of months, but states "some hospital gave it to her." I discussed with him restarting an injection: Haldol Decanoate, also giving the patient something to increase her appetite. The spouse was in agreement with plan and states the patient is non compliant and throws her medications away. Start Haldol Deconoate 50mg IM x 1 Start Remeron 7.5mg po qhs D/c Olanzapine
[2021-03-08] MEDS ORDERED: HALOPERIDOL LACTATE 5 MG/1 ML INJ IM PRN (10:00)
[2021-03-08] MEDS: traZODone 50 MG TAB PO SCH (21:05)
--- NOTE | 2021-03-09 09:21 | Progress Note ---
Subjective Date of service: 03/09/21 Principal diagnosis: Schizophrenia Subjective Comment: The patient was seen today. She is avoidant and uncooperative. She is still paranoid. She is irritable, and tells me to "stop fuing with her." She says my "name is not Mrs. Kovacs." She then says "I'm doing fine if you would leave me alone." She would not answer any more questions after this. REVIEW OF SYSTEMS Could not obtain MENTAL STATUS EXAMINATION could not obtain Assessment and Plan (1) Schizophrenia Current Visit: Yes Status: Acute Treatment Plan Patient admitted for inpatient psychiatric evaluation, medication adjustment and close monitoring The patient's behavior, mood, sleep and appetite will be closely monitored. Patient enrolled in individual and group therapeutic sessions and encouraged to attend. Patient provided with a safe and structured environment. Patient's physical health needs will be addressed by the Hospitalist. Hospitalist Consulted Labs including CBC, CMP, Lipid profile and Hemoglobin A1C levels ordered for baseline reference Social Assessment will be completed and the Switchboard Installer will work with patient and family to ensure a suitable and safe disposition Medication adjustment will be made as clinically indicated Haldol deconoate 50mg IM x 1 yesterday Usual Wellness Yazidi/Preservation: - Start Trazodone 50 mg po QHS & 50 mg po QHS PRN between 10 PM & 2 AM for insomnia - Start Melatonin 5 mg po QHS to promote circadian rhythm The patient agreed on the treatment plan, understood the risk, benefit, alternative treatment, potential consequence of no treatment, and gave informed consent. Estimated days: 4 Post hospital care: primary care provider, psychiatric provider Case staffed with Dr. Naranjo Medications and Allergies Allergies Allergy/AdvReac Type Severity Reaction Status Date / Time No Known Drug Allergies Allergy Unknown Verified 03/05/21 02:54 Home Medications Medication Instructions Recorded Confirmed Last Taken Type Benztropine [Cogentin] 1 mg PO DAILY 03/05/21 03/05/21 Unknown History Divalproex [Serafin MONGE] 500 mg PO BID 03/05/21 03/05/21 Unknown History OLANZapine [Zyprexa] 5 mg PO DAILY 03/05/21 03/05/21 Unknown History Risperdal 1 mg PO DAILY 03/05/21 03/05/21 Unknown History carBAMazepine [TEGretol] 200 mg PO BID 03/05/21 03/05/21 Unknown History lisinopriL [Lisinopril] 10 mg PO DAILY 03/05/21 03/05/21 Unknown History Active Meds: Active Medications Benztropine Mesylate (Benztropine 1 Mg Tab) 1 mg PO DAILY [facility] Last Admin: 03/08/21 09:07 Dose: 1 mg Documented by: Carbamazepine (Carbamazepine 200 Mg Tab) 200 mg PO BID [facility] Last Admin: 03/08/21 21:05 Dose: 200 mg Documented by: Haloperidol (Haloperidol 5 Mg Tab) 5 mg PO BID [facility] Last Admin: 03/08/21 21:05 Dose: 5 mg Documented by: Haloperidol Lactate (Haloperidol Lactate 5 Mg/1 Ml Inj) 5 mg IM Q6H PRN PRN Reason: Agitation Last Admin: 03/05/21 06:24 Dose: 5 mg Documented by: Haloperidol Lactate (Haloperidol Lactate 5 Mg/1 Ml Inj) 5 mg IM BID PRN PRN Reason: IF WONT TAKE ORAL MED Hydralazine HCl (Hydralazine 10 Mg Tab) 10 mg PO Q6H PRN PRN Reason: Hypertension Lisinopril (Lisinopril 10 Mg Tab) 20 mg PO DAILY [facility] Last Admin: 03/08/21 09:07 Dose: 20 mg Documented by: Lorazepam (Lorazepam 2 Mg/Ml Vial) 2 mg IM Q6H PRN PRN Reason: Agitation Melatonin (Melatonin 5 Mg Tab) 5 mg PO QHS PRN PRN Reason: Sleep Trazodone HCl (Trazodone 50 Mg Tab) 50 mg PO QHS [facility] Last Admin: 03/08/21 21:05 Dose: 50 mg Documented by: Results - Results Labs/Vitals: Laboratory Last Values WBC 4.1 K/mm3 (4.5-11.0) L 03/05/21 10:42 RBC 4.06 M/mm3 (3.65-5.03) 03/05/21 10:42 Hgb 12.6 gm/dl (10.1-14.3) 03/05/21 10:42 Hct 35.9 % (30.3-42.9) 03/05/21 10:42 MCV 88 fl (79-97) 03/05/21 10:42 MCH 31 pg (28-32) 03/05/21 10:42 MCHC 35 % (30-34) H 03/05/21 10:42 RDW 13.4 % (13.2-15.2) 03/05/21 10:42 Plt Count 218 K/mm3 (140-440) 03/05/21 10:42 Lymph % (Auto) 30.3 % (13.4-35.0) 03/05/21 10:42 [place] % (Auto) 5.6 % (0.0-7.3) 03/05/21 10:42 Eos % (Auto) 2.6 % (0.0-4.3) 03/05/21 10:42 Baso % (Auto) 1.1 % (0.0-1.8) 03/05/21 10:42 Lymph # (Auto) 1.2 K/mm3 (1.2-5.4) 03/05/21 10:42 [place] # (Auto) 0.2 K/mm3 (0.0-0.8) 03/05/21 10:42 Eos # (Auto) 0.1 K/mm3 (0.0-0.4) 03/05/21 10:42 Baso # (Auto) 0.0 K/mm3 (0.0-0.1) 03/05/21 10:42 Seg Neutrophils % 60.4 % (40.0-70.0) 03/05/21 10:42 Seg Neutrophils # 2.5 K/mm3 (1.8-7.7) 03/05/21 10:42 Sodium 141 mmol/L (137-145) 03/05/21 16:06 Potassium 3.7 mmol/L (3.6-5.0) 03/05/21 16:06 Chloride 105.7 mmol/L (98-107) 03/05/21 16:06 Carbon Dioxide 29 mmol/L (22-30) 03/05/21 16:06 Anion Gap 10 mmol/L 03/05/21 16:06 BUN 21 mg/dL (7-17) H 03/05/21 16:06 Creatinine 0.9 mg/dL (0.6-1.2) 03/05/21 16:06 Estimated GFR > 60 ml/min 03/05/21 16:06 BUN/Creatinine Ratio 23 % 03/05/21 16:06 Glucose 111 mg/dL (65-100) H 03/05/21 16:06 POC Glucose 82 mg/dL (70-105) 03/09/21 05:59 Hemoglobin A1c 5.5 % (4-6) 03/05/21 10:42 Calcium 9.3 mg/dL (8.4-10.2) 03/05/21 16:06 Total Bilirubin 0.40 mg/dL (0.1-1.2) 03/05/21 10:42 AST 15 units/L (5-40) 03/05/21 10:42 ALT < 5 units/L (7-56) L 03/05/21 10:42 Alkaline Phosphatase 42 units/L (35-129) 03/05/21 10:42 Total Protein 5.9 g/dL (6.3-8.2) L 03/05/21 10:42 Albumin 3.1 g/dL (3.9-5) L 03/05/21 10:42 Albumin/Globulin Ratio 1.1 % 03/05/21 10:42 Triglycerides 99 mg/dL (2-149) 03/05/21 10:42 Cholesterol 211 mg/dL (50-199) H 03/05/21 10:42 LDL Cholesterol Direct 159 mg/dL (50-130) H 03/05/21 10:42 HDL Cholesterol 43 mg/dL (40-59) 03/05/21 10:42 Cholesterol/HDL Ratio 4.90 % 03/05/21 10:42 TSH 0.673 mlU/mL (0.270-4.200) 03/05/21 10:42 Last Vital Signs Temp 98.4 F 03/08/21 19:27 Pulse 93 H 03/08/21 19:27 Resp 18 03/08/21 19:27 BP 142/91 03/08/21 19:27 Pulse Ox 99 03/08/21 19:27
[2021-03-09] MEDS: HALOPERIDOL 5 MG TAB PO SCH ×2 (09:25→21:07)
[2021-03-09] MEDS: LISINOPRIL 10 MG TAB PO SCH (09:25)
[2021-03-09] MEDS: BENZTROPINE 1 MG TAB PO SCH (09:25)
[2021-03-09] MEDS: carBAMazepine 200 MG TAB PO SCH ×2 (09:25→21:07)
[2021-03-09] MEDS: traZODone 50 MG TAB PO SCH (21:07)
[2021-03-09 22:20] LABS: BUN/Creatinine Ratio 23; Blood Urea Nitrogen 18 mg/dL (7-17); Calcium 9.1 mg/dL (8.4-10.2); Hemolysis Index 0
[2021-03-10] MEDS: HALOPERIDOL 5 MG TAB PO SCH ×2 (09:25→21:03)
[2021-03-10] MEDS: BENZTROPINE 1 MG TAB PO SCH (09:25)
[2021-03-10] MEDS: carBAMazepine 200 MG TAB PO SCH ×2 (09:25→21:03)
[2021-03-10] MEDS: LISINOPRIL 10 MG TAB PO SCH (09:25)
--- NOTE | 2021-03-10 10:23 | Progress Note ---
Subjective Date of service: 03/10/21 Principal diagnosis: Schizophrenia Subjective Comment: The patient was seen today. She is more cooperative and talkative today than yesterday, but she is still paranoid. She is irritable. She says "I'm not angry at nobody. I'm not gone let none of yall get me upset." She denies hallucination. She also denies SI/HI. She says "none of that is in my head." The patient does become irritable at me because I call her Mrs Kovacs. She says "that's not my name. Just call me what you want to call me. My name is not Bethanie." REVIEW OF SYSTEMS Could not obtain MENTAL STATUS EXAMINATION could not obtain Assessment and Plan (1) Schizophrenia Current Visit: Yes Status: Acute Treatment Plan Patient admitted for inpatient psychiatric evaluation, medication adjustment and close monitoring The patient's behavior, mood, sleep and appetite will be closely monitored. Patient enrolled in individual and group therapeutic sessions and encouraged to attend. Patient provided with a safe and structured environment. Patient's physical health needs will be addressed by the Hospitalist. Hospitalist Consulted Labs including CBC, CMP, Lipid profile and Hemoglobin A1C levels ordered for baseline reference Social Assessment will be completed and the Travel Registered Nurse Oncology will work with patient and family to ensure a suitable and safe disposition Medication adjustment will be made as clinically indicated Continue medications Usual Wellness Amish/Preservation: - Start Trazodone 50 mg po QHS & 50 mg po QHS PRN between 10 PM & 2 AM for insomnia - Start Melatonin 5 mg po QHS to promote circadian rhythm The patient agreed on the treatment plan, understood the risk, benefit, alternative treatment, potential consequence of no treatment, and gave informed consent. Estimated days: 4 Post hospital care: primary care provider, psychiatric provider Case staffed with Dr. Naranjo Medications and Allergies Allergies Allergy/AdvReac Type Severity Reaction Status Date / Time No Known Drug Allergies Allergy Unknown Verified 03/05/21 02:54 Home Medications Medication Instructions Recorded Confirmed Last Taken Type Benztropine [Cogentin] 1 mg PO DAILY 03/05/21 03/05/21 Unknown History Divalproex [Serafin MONGE] 500 mg PO BID 03/05/21 03/05/21 Unknown History OLANZapine [Zyprexa] 5 mg PO DAILY 03/05/21 03/05/21 Unknown History Risperdal 1 mg PO DAILY 03/05/21 03/05/21 Unknown History carBAMazepine [TEGretol] 200 mg PO BID 03/05/21 03/05/21 Unknown History lisinopriL [Lisinopril] 10 mg PO DAILY 03/05/21 03/05/21 Unknown History Active Meds: Active Medications Benztropine Mesylate (Benztropine 1 Mg Tab) 1 mg PO DAILY [facility] Last Admin: 03/10/21 09:25 Dose: 1 mg Documented by: Carbamazepine (Carbamazepine 200 Mg Tab) 200 mg PO BID [facility] Last Admin: 03/10/21 09:25 Dose: 200 mg Documented by: Haloperidol (Haloperidol 5 Mg Tab) 5 mg PO BID [facility] Last Admin: 03/10/21 09:25 Dose: 5 mg Documented by: Haloperidol Lactate (Haloperidol Lactate 5 Mg/1 Ml Inj) 5 mg IM Q6H PRN PRN Reason: Agitation Last Admin: 03/05/21 06:24 Dose: 5 mg Documented by: Haloperidol Lactate (Haloperidol Lactate 5 Mg/1 Ml Inj) 5 mg IM BID PRN PRN Reason: IF WONT TAKE ORAL MED Hydralazine HCl (Hydralazine 10 Mg Tab) 10 mg PO Q6H PRN PRN Reason: Hypertension Lisinopril (Lisinopril 10 Mg Tab) 20 mg PO DAILY [facility] Last Admin: 03/10/21 09:25 Dose: 20 mg Documented by: Lorazepam (Lorazepam 2 Mg/Ml Vial) 2 mg IM Q6H PRN PRN Reason: Agitation Melatonin (Melatonin 5 Mg Tab) 5 mg PO QHS PRN PRN Reason: Sleep Trazodone HCl (Trazodone 50 Mg Tab) 50 mg PO QHS [facility] Last Admin: 03/09/21 21:07 Dose: 50 mg Documented by: Results - Results Labs/Vitals: Laboratory Last Values WBC 4.1 K/mm3 (4.5-11.0) L 03/05/21 10:42 RBC 4.06 M/mm3 (3.65-5.03) 03/05/21 10:42 Hgb 12.6 gm/dl (10.1-14.3) 03/05/21 10:42 Hct 35.9 % (30.3-42.9) 03/05/21 10:42 MCV 88 fl (79-97) 03/05/21 10:42 MCH 31 pg (28-32) 03/05/21 10:42 MCHC 35 % (30-34) H 03/05/21 10:42 RDW 13.4 % (13.2-15.2) 03/05/21 10:42 Plt Count 218 K/mm3 (140-440) 03/05/21 10:42 Lymph % (Auto) 30.3 % (13.4-35.0) 03/05/21 10:42 [place] % (Auto) 5.6 % (0.0-7.3) 03/05/21 10:42 Eos % (Auto) 2.6 % (0.0-4.3) 03/05/21 10:42 Baso % (Auto) 1.1 % (0.0-1.8) 03/05/21 10:42 Lymph # (Auto) 1.2 K/mm3 (1.2-5.4) 03/05/21 10:42 [place] # (Auto) 0.2 K/mm3 (0.0-0.8) 03/05/21 10:42 Eos # (Auto) 0.1 K/mm3 (0.0-0.4) 03/05/21 10:42 Baso # (Auto) 0.0 K/mm3 (0.0-0.1) 03/05/21 10:42 Seg Neutrophils % 60.4 % (40.0-70.0) 03/05/21 10:42 Seg Neutrophils # 2.5 K/mm3 (1.8-7.7) 03/05/21 10:42 Sodium 143 mmol/L (137-145) 03/09/21 14:05 Potassium 4.3 mmol/L (3.6-5.0) 03/09/21 14:05 Chloride 103.0 mmol/L (98-107) 03/09/21 14:05 Carbon Dioxide 30 mmol/L (22-30) 03/09/21 14:05 Anion Gap 14 mmol/L 03/09/21 14:05 BUN 18 mg/dL (7-17) H 03/09/21 14:05 Creatinine 0.8 mg/dL (0.6-1.2) 03/09/21 14:05 Estimated GFR > 60 ml/min 03/09/21 14:05 BUN/Creatinine Ratio 23 % 03/09/21 14:05 Glucose 88 mg/dL (65-100) 03/09/21 14:05 POC Glucose 96 mg/dL (70-105) 03/10/21 06:24 Hemoglobin A1c 5.5 % (4-6) 03/05/21 10:42 Calcium 9.1 mg/dL (8.4-10.2) 03/09/21 14:05 Total Bilirubin 0.40 mg/dL (0.1-1.2) 03/05/21 10:42 AST 15 units/L (5-40) 03/05/21 10:42 ALT < 5 units/L (7-56) L 03/05/21 10:42 Alkaline Phosphatase 42 units/L (35-129) 03/05/21 10:42 Total Protein 5.9 g/dL (6.3-8.2) L 03/05/21 10:42 Albumin 3.1 g/dL (3.9-5) L 03/05/21 10:42 Albumin/Globulin Ratio 1.1 % 03/05/21 10:42 Triglycerides 99 mg/dL (2-149) 03/05/21 10:42 Cholesterol 211 mg/dL (50-199) H 03/05/21 10:42 LDL Cholesterol Direct 159 mg/dL (50-130) H 03/05/21 10:42 HDL Cholesterol 43 mg/dL (40-59) 03/05/21 10:42 Cholesterol/HDL Ratio 4.90 % 03/05/21 10:42 TSH 0.673 mlU/mL (0.270-4.200) 03/05/21 10:42 Last Vital Signs Temp 98.0 F 03/10/21 08:52 Pulse 82 03/10/21 09:25 Resp 18 03/10/21 08:52 BP 142/89 03/10/21 09:25 Pulse Ox 92 03/10/21 08:52
[2021-03-10] MEDS: traZODone 50 MG TAB PO SCH (21:03)
[2021-03-11] MEDS: carBAMazepine 200 MG TAB PO SCH ×2 (09:00→21:12)
[2021-03-11] MEDS: HALOPERIDOL 5 MG TAB PO SCH ×2 (09:00→21:13)
[2021-03-11] MEDS: LISINOPRIL 10 MG TAB PO SCH (09:00)
[2021-03-11] MEDS: BENZTROPINE 1 MG TAB PO SCH (09:00)
--- NOTE | 2021-03-11 09:54 | Discharge Summary ---
Providers - Providers Date of Admission: 03/05/21 04:19 Date of discharge: 03/11/21 Attending physician: ESTRADA MELO MD 03/05/21 02:55 Consult to Dietitian/Nutrition [CONS] Routine Physician Instructions: Possible for Low Sodium Diet Reason For Exam: Hx/o Hypertension Reason for Consult: Diet education Consult to Physician [CONS] Routine Comment: Consulting Provider: JOSHUA SALVADOR Physician Instructions: Manage pt existing condiitons Reason For Exam: New pt consult Primary care physician: DIRECTOR MARKET INTELLIGENCE Hospitalization Reason for admission: Schizophrenia Admitting Diagnosis: F20.9 - SCHIZOPHRENIA, UNSPECIFIED Condition: Stable Hospital course: The patient was provided inpatient psychiatric treatment with safe and supportive care, medication adjustment, adverse effect monitoring, medical evaluations, medical treatments, assessment and psycho-education. The patient's mood, cognition, behavior, moral support are improved and stabilized. St the time of discharge, the patient had no endangering behavior and no debilitating adverse effects. The patient agreed on potential consequences of no treatment and gave informed consent. 03/06/2021: The patient was seen resting in bed. The patient refused to answer questions. Unable to assess SI/HI/AVHs. Per nurse, the patient is non compliant with medications. 03/07/2021: The patient was seen resting in bed, she continues to be mute. Unable to assess SI/HI/AVHs. Per nurse, the patient had a quiet night. No changes made today. 03/08 The patient was seen today. She is avoidant and uncooperative. She is upset and tells me she was sleeping fine until I woke her up. She tells me her name is not Mrs. Kovacs. She refuses to answer any questions. Disposition: 01 HOME / SELF CARE / HOMELESS Time spent for discharge: 35 Allergies/Adverse Reactions: Allergies No Known Drug Allergies Allergy (Verified 03/05/21 02:54) Unknown Vital Signs: Last Vital Signs Temp 98.3 F 03/11/21 08:03 Pulse 94 H 03/11/21 09:00 Resp 18 03/11/21 08:03 BP 117/77 03/11/21 08:03 Pulse Ox 95 03/11/21 08:03 Last Lab: Laboratory Last Values WBC 4.1 K/mm3 (4.5-11.0) L 03/05/21 10:42 RBC 4.06 M/mm3 (3.65-5.03) 03/05/21 10:42 Hgb 12.6 gm/dl (10.1-14.3) 03/05/21 10:42 Hct 35.9 % (30.3-42.9) 03/05/21 10:42 MCV 88 fl (79-97) 03/05/21 10:42 MCH 31 pg (28-32) 03/05/21 10:42 MCHC 35 % (30-34) H 03/05/21 10:42 RDW 13.4 % (13.2-15.2) 03/05/21 10:42 Plt Count 218 K/mm3 (140-440) 03/05/21 10:42 Lymph % (Auto) 30.3 % (13.4-35.0) 03/05/21 10:42 [place] % (Auto) 5.6 % (0.0-7.3) 03/05/21 10:42 Eos % (Auto) 2.6 % (0.0-4.3) 03/05/21 10:42 Baso % (Auto) 1.1 % (0.0-1.8) 03/05/21 10:42 Lymph # (Auto) 1.2 K/mm3 (1.2-5.4) 03/05/21 10:42 [place] # (Auto) 0.2 K/mm3 (0.0-0.8) 03/05/21 10:42 Eos # (Auto) 0.1 K/mm3 (0.0-0.4) 03/05/21 10:42 Baso # (Auto) 0.0 K/mm3 (0.0-0.1) 03/05/21 10:42 Seg Neutrophils % 60.4 % (40.0-70.0) 03/05/21 10:42 Seg Neutrophils # 2.5 K/mm3 (1.8-7.7) 03/05/21 10:42 Sodium 143 mmol/L (137-145) 03/09/21 14:05 Potassium 4.3 mmol/L (3.6-5.0) 03/09/21 14:05 Chloride 103.0 mmol/L (98-107) 03/09/21 14:05 Carbon Dioxide 30 mmol/L (22-30) 03/09/21 14:05 Anion Gap 14 mmol/L 03/09/21 14:05 BUN 18 mg/dL (7-17) H 03/09/21 14:05 Creatinine 0.8 mg/dL (0.6-1.2) 03/09/21 14:05 Estimated GFR > 60 ml/min 03/09/21 14:05 BUN/Creatinine Ratio 23 % 03/09/21 14:05 Glucose 88 mg/dL (65-100) 03/09/21 14:05 POC Glucose 78 mg/dL (70-105) 03/11/21 06:15 Hemoglobin A1c 5.5 % (4-6) 03/05/21 10:42 Calcium 9.1 mg/dL (8.4-10.2) 03/09/21 14:05 Total Bilirubin 0.40 mg/dL (0.1-1.2) 03/05/21 10:42 AST 15 units/L (5-40) 03/05/21 10:42 ALT < 5 units/L (7-56) L 03/05/21 10:42 Alkaline Phosphatase 42 units/L (35-129) 03/05/21 10:42 Total Protein 5.9 g/dL (6.3-8.2) L 03/05/21 10:42 Albumin 3.1 g/dL (3.9-5) L 03/05/21 10:42 Albumin/Globulin Ratio 1.1 % 03/05/21 10:42 Triglycerides 99 mg/dL (2-149) 03/05/21 10:42 Cholesterol 211 mg/dL (50-199) H 03/05/21 10:42 LDL Cholesterol Direct 159 mg/dL (50-130) H 03/05/21 10:42 HDL Cholesterol 43 mg/dL (40-59) 03/05/21 10:42 Cholesterol/HDL Ratio 4.90 % 03/05/21 10:42 TSH 0.673 mlU/mL (0.270-4.200) 03/05/21 10:42 Core Measure Documentation - Palliative Care Palliative Care/ Comfort Measures: Not Applicable Exam - Constitutional Vitals: Temp Pulse Resp BP Pulse Ox 98.3 F 94 H 18 117/77 95 03/11/21 08:03 03/11/21 09:00 03/11/21 08:03 03/11/21 08:03 03/11/21 08:03 Plan Follow up with: PRIMARY MD HALLIE [Primary Care Provider] - 7 Days
--- NOTE | 2021-03-11 09:57 | Progress Note ---
Subjective Date of service: 03/11/21 Principal diagnosis: Schizophrenia Subjective Comment: The patient was seen today. She is lying down asleep. She easily arouses. She says she "already ate breakfast" when asking about her appetite. The patient says she slept good. She denies SI/HI or hallucinations of any kind. Reason for continued inpatient treatment: The patient is improving, but has episodes of paranoia and delusions. She was given Haldol deconoate to increase compliance and increase improvement. Will continue to treat and monitor. REVIEW OF SYSTEMS Could not obtain MENTAL STATUS EXAMINATION could not obtain Assessment and Plan (1) Schizophrenia Current Visit: Yes Status: Acute Treatment Plan Patient admitted for inpatient psychiatric evaluation, medication adjustment and close monitoring The patient's behavior, mood, sleep and appetite will be closely monitored. Patient enrolled in individual and group therapeutic sessions and encouraged to attend. Patient provided with a safe and structured environment. Patient's physical health needs will be addressed by the Hospitalist. Hospitalist Consulted Labs including CBC, CMP, Lipid profile and Hemoglobin A1C levels ordered for baseline reference Social Assessment will be completed and the Cell Plasterer will work with patient and family to ensure a suitable and safe disposition Medication adjustment will be made as clinically indicated Continue medications Usual Wellness Yazdanism/Preservation: - Start Trazodone 50 mg po QHS & 50 mg po QHS PRN between 10 PM & 2 AM for insomnia - Start Melatonin 5 mg po QHS to promote circadian rhythm The patient agreed on the treatment plan, understood the risk, benefit, alternative treatment, potential consequence of no treatment, and gave informed consent. Estimated days: 4 Post hospital care: primary care provider, psychiatric provider Case staffed with Dr. Naranjo Medications and Allergies Allergies Allergy/AdvReac Type Severity Reaction Status Date / Time No Known Drug Allergies Allergy Unknown Verified 03/05/21 02:54 Home Medications Medication Instructions Recorded Confirmed Last Taken Type Benztropine [Cogentin] 1 mg PO DAILY 03/05/21 03/05/21 Unknown History Divalproex [Serafin MONGE] 500 mg PO BID 03/05/21 03/05/21 Unknown History OLANZapine [Zyprexa] 5 mg PO DAILY 03/05/21 03/05/21 Unknown History Risperdal 1 mg PO DAILY 03/05/21 03/05/21 Unknown History carBAMazepine [TEGretol] 200 mg PO BID 03/05/21 03/05/21 Unknown History lisinopriL [Lisinopril] 10 mg PO DAILY 03/05/21 03/05/21 Unknown History Active Meds: Active Medications Benztropine Mesylate (Benztropine 1 Mg Tab) 1 mg PO DAILY [facility] Last Admin: 03/11/21 09:00 Dose: 1 mg Documented by: Carbamazepine (Carbamazepine 200 Mg Tab) 200 mg PO BID [facility] Last Admin: 03/11/21 09:00 Dose: 200 mg Documented by: Haloperidol (Haloperidol 5 Mg Tab) 5 mg PO BID [facility] Last Admin: 03/11/21 09:00 Dose: 5 mg Documented by: Haloperidol Lactate (Haloperidol Lactate 5 Mg/1 Ml Inj) 5 mg IM Q6H PRN PRN Reason: Agitation Last Admin: 03/05/21 06:24 Dose: 5 mg Documented by: Haloperidol Lactate (Haloperidol Lactate 5 Mg/1 Ml Inj) 5 mg IM BID PRN PRN Reason: IF WONT TAKE ORAL MED Hydralazine HCl (Hydralazine 10 Mg Tab) 10 mg PO Q6H PRN PRN Reason: Hypertension Lisinopril (Lisinopril 10 Mg Tab) 20 mg PO DAILY [facility] Last Admin: 03/11/21 09:00 Dose: 20 mg Documented by: Lorazepam (Lorazepam 2 Mg/Ml Vial) 2 mg IM Q6H PRN PRN Reason: Agitation Melatonin (Melatonin 5 Mg Tab) 5 mg PO QHS PRN PRN Reason: Sleep Trazodone HCl (Trazodone 50 Mg Tab) 50 mg PO QHS [facility] Last Admin: 03/10/21 21:03 Dose: 50 mg Documented by: Results - Results Labs/Vitals: Laboratory Last Values WBC 4.1 K/mm3 (4.5-11.0) L 03/05/21 10:42 RBC 4.06 M/mm3 (3.65-5.03) 03/05/21 10:42 Hgb 12.6 gm/dl (10.1-14.3) 03/05/21 10:42 Hct 35.9 % (30.3-42.9) 03/05/21 10:42 MCV 88 fl (79-97) 03/05/21 10:42 MCH 31 pg (28-32) 03/05/21 10:42 MCHC 35 % (30-34) H 03/05/21 10:42 RDW 13.4 % (13.2-15.2) 03/05/21 10:42 Plt Count 218 K/mm3 (140-440) 03/05/21 10:42 Lymph % (Auto) 30.3 % (13.4-35.0) 03/05/21 10:42 [place] % (Auto) 5.6 % (0.0-7.3) 03/05/21 10:42 Eos % (Auto) 2.6 % (0.0-4.3) 03/05/21 10:42 Baso % (Auto) 1.1 % (0.0-1.8) 03/05/21 10:42 Lymph # (Auto) 1.2 K/mm3 (1.2-5.4) 03/05/21 10:42 [place] # (Auto) 0.2 K/mm3 (0.0-0.8) 03/05/21 10:42 Eos # (Auto) 0.1 K/mm3 (0.0-0.4) 03/05/21 10:42 Baso # (Auto) 0.0 K/mm3 (0.0-0.1) 03/05/21 10:42 Seg Neutrophils % 60.4 % (40.0-70.0) 03/05/21 10:42 Seg Neutrophils # 2.5 K/mm3 (1.8-7.7) 03/05/21 10:42 Sodium 143 mmol/L (137-145) 03/09/21 14:05 Potassium 4.3 mmol/L (3.6-5.0) 03/09/21 14:05 Chloride 103.0 mmol/L (98-107) 03/09/21 14:05 Carbon Dioxide 30 mmol/L (22-30) 03/09/21 14:05 Anion Gap 14 mmol/L 03/09/21 14:05 BUN 18 mg/dL (7-17) H 03/09/21 14:05 Creatinine 0.8 mg/dL (0.6-1.2) 03/09/21 14:05 Estimated GFR > 60 ml/min 03/09/21 14:05 BUN/Creatinine Ratio 23 % 03/09/21 14:05 Glucose 88 mg/dL (65-100) 03/09/21 14:05 POC Glucose 78 mg/dL (70-105) 03/11/21 06:15 Hemoglobin A1c 5.5 % (4-6) 03/05/21 10:42 Calcium 9.1 mg/dL (8.4-10.2) 03/09/21 14:05 Total Bilirubin 0.40 mg/dL (0.1-1.2) 03/05/21 10:42 AST 15 units/L (5-40) 03/05/21 10:42 ALT < 5 units/L (7-56) L 03/05/21 10:42 Alkaline Phosphatase 42 units/L (35-129) 03/05/21 10:42 Total Protein 5.9 g/dL (6.3-8.2) L 03/05/21 10:42 Albumin 3.1 g/dL (3.9-5) L 03/05/21 10:42 Albumin/Globulin Ratio 1.1 % 03/05/21 10:42 Triglycerides 99 mg/dL (2-149) 03/05/21 10:42 Cholesterol 211 mg/dL (50-199) H 03/05/21 10:42 LDL Cholesterol Direct 159 mg/dL (50-130) H 03/05/21 10:42 HDL Cholesterol 43 mg/dL (40-59) 03/05/21 10:42 Cholesterol/HDL Ratio 4.90 % 03/05/21 10:42 TSH 0.673 mlU/mL (0.270-4.200) 03/05/21 10:42 Last Vital Signs Temp 98.3 F 03/11/21 08:03 Pulse 94 H 03/11/21 09:00 Resp 18 03/11/21 08:03 BP 117/77 03/11/21 08:03 Pulse Ox 95 03/11/21 08:03
[2021-03-11] MEDS: traZODone 50 MG TAB PO SCH (21:12)
[2021-03-12] MEDS: BENZTROPINE 1 MG TAB PO SCH (09:07)
[2021-03-12] MEDS: carBAMazepine 200 MG TAB PO SCH ×2 (09:07→21:08)
[2021-03-12] MEDS: LISINOPRIL 10 MG TAB PO SCH (09:07)
[2021-03-12] MEDS: HALOPERIDOL 5 MG TAB PO SCH ×2 (09:07→21:08)
--- NOTE | 2021-03-12 09:47 | Progress Note ---
Subjective Date of service: 03/12/21 Principal diagnosis: Schizophrenia Subjective Comment: The patient was seen today. She is lying down asleep. She easily arouses. The patient is easily irritable. She says she slept well. She denies SI/HI or hallucinations. Reason for continued inpatient treatment: The patient is improving. She is awaiting placement because the spouse can no longer care for her according to the . REVIEW OF SYSTEMS Could not obtain MENTAL STATUS EXAMINATION could not obtain Assessment and Plan (1) Schizophrenia Current Visit: Yes Status: Acute Treatment Plan Patient admitted for inpatient psychiatric evaluation, medication adjustment and close monitoring The patient's behavior, mood, sleep and appetite will be closely monitored. Patient enrolled in individual and group therapeutic sessions and encouraged to attend. Patient provided with a safe and structured environment. Patient's physical health needs will be addressed by the Hospitalist. Hospitalist Consulted Labs including CBC, CMP, Lipid profile and Hemoglobin A1C levels ordered for [facility] Social Assessment will be completed and the Forest Science Professor will work with patient and family to ensure a suitable and safe disposition Medication adjustment will be made as clinically indicated Continue medications Usual Wellness Religious/Preservation: - Start Trazodone 50 mg po QHS & 50 mg po QHS PRN between 10 PM & 2 AM for insomnia - Start Melatonin 5 mg po QHS to promote circadian rhythm The patient agreed on the treatment plan, understood the risk, benefit, alternative treatment, potential consequence of no treatment, and gave informed consent. Estimated days: 4 Post hospital care: primary care provider, psychiatric provider Case staffed with Dr. Naranjo Medications and Allergies Allergies Allergy/AdvReac Type Severity Reaction Status Date / Time No Known Drug Allergies Allergy Unknown Verified 03/05/21 02:54 Home Medications Medication Instructions Recorded Confirmed Last Taken Type Benztropine [Cogentin] 1 mg PO DAILY 03/05/21 03/05/21 Unknown History Divalproex [Serafin MONGE] 500 mg PO BID 03/05/21 03/05/21 Unknown History OLANZapine [Zyprexa] 5 mg PO DAILY 03/05/21 03/05/21 Unknown History Risperdal 1 mg PO DAILY 03/05/21 03/05/21 Unknown History carBAMazepine [TEGretol] 200 mg PO BID 03/05/21 03/05/21 Unknown History lisinopriL [Lisinopril] 10 mg PO DAILY 03/05/21 03/05/21 Unknown History Active Meds: Active Medications Benztropine Mesylate (Benztropine 1 Mg Tab) 1 mg PO DAILY [facility] Last Admin: 03/12/21 09:07 Dose: 1 mg Documented by: Carbamazepine (Carbamazepine 200 Mg Tab) 200 mg PO BID [facility] Last Admin: 03/12/21 09:07 Dose: 200 mg Documented by: Haloperidol (Haloperidol 5 Mg Tab) 5 mg PO BID [facility] Last Admin: 03/12/21 09:07 Dose: 5 mg Documented by: Haloperidol Lactate (Haloperidol Lactate 5 Mg/1 Ml Inj) 5 mg IM Q6H PRN PRN Reason: Agitation Last Admin: 03/05/21 06:24 Dose: 5 mg Documented by: Haloperidol Lactate (Haloperidol Lactate 5 Mg/1 Ml Inj) 5 mg IM BID PRN PRN Reason: IF WONT TAKE ORAL MED Hydralazine HCl (Hydralazine 10 Mg Tab) 10 mg PO Q6H PRN PRN Reason: Hypertension Lisinopril (Lisinopril 10 Mg Tab) 20 mg PO DAILY [facility] Last Admin: 03/12/21 09:07 Dose: 20 mg Documented by: Lorazepam (Lorazepam 2 Mg/Ml Vial) 2 mg IM Q6H PRN PRN Reason: Agitation Melatonin (Melatonin 5 Mg Tab) 5 mg PO QHS PRN PRN Reason: Sleep Trazodone HCl (Trazodone 50 Mg Tab) 50 mg PO QHS [facility] Last Admin: 03/11/21 21:12 Dose: 50 mg Documented by: Results - Results Labs/Vitals: Laboratory Last Values WBC 4.1 K/mm3 (4.5-11.0) L 03/05/21 10:42 RBC 4.06 M/mm3 (3.65-5.03) 03/05/21 10:42 Hgb 12.6 gm/dl (10.1-14.3) 03/05/21 10:42 Hct 35.9 % (30.3-42.9) 03/05/21 10:42 MCV 88 fl (79-97) 03/05/21 10:42 MCH 31 pg (28-32) 03/05/21 10:42 MCHC 35 % (30-34) H 03/05/21 10:42 RDW 13.4 % (13.2-15.2) 03/05/21 10:42 Plt Count 218 K/mm3 (140-440) 03/05/21 10:42 Lymph % (Auto) 30.3 % (13.4-35.0) 03/05/21 10:42 [place] % (Auto) 5.6 % (0.0-7.3) 03/05/21 10:42 Eos % (Auto) 2.6 % (0.0-4.3) 03/05/21 10:42 Baso % (Auto) 1.1 % (0.0-1.8) 03/05/21 10:42 Lymph # (Auto) 1.2 K/mm3 (1.2-5.4) 03/05/21 10:42 [place] # (Auto) 0.2 K/mm3 (0.0-0.8) 03/05/21 10:42 Eos # (Auto) 0.1 K/mm3 (0.0-0.4) 03/05/21 10:42 Baso # (Auto) 0.0 K/mm3 (0.0-0.1) 03/05/21 10:42 Seg Neutrophils % 60.4 % (40.0-70.0) 03/05/21 10:42 Seg Neutrophils # 2.5 K/mm3 (1.8-7.7) 03/05/21 10:42 Sodium 143 mmol/L (137-145) 03/09/21 14:05 Potassium 4.3 mmol/L (3.6-5.0) 03/09/21 14:05 Chloride 103.0 mmol/L (98-107) 03/09/21 14:05 Carbon Dioxide 30 mmol/L (22-30) 03/09/21 14:05 Anion Gap 14 mmol/L 03/09/21 14:05 BUN 18 mg/dL (7-17) H 03/09/21 14:05 Creatinine 0.8 mg/dL (0.6-1.2) 03/09/21 14:05 Estimated GFR > 60 ml/min 03/09/21 14:05 BUN/Creatinine Ratio 23 % 03/09/21 14:05 Glucose 88 mg/dL (65-100) 03/09/21 14:05 POC Glucose 79 mg/dL (70-105) 03/12/21 07:14 Hemoglobin A1c 5.5 % (4-6) 03/05/21 10:42 Calcium 9.1 mg/dL (8.4-10.2) 03/09/21 14:05 Total Bilirubin 0.40 mg/dL (0.1-1.2) 03/05/21 10:42 AST 15 units/L (5-40) 03/05/21 10:42 ALT < 5 units/L (7-56) L 03/05/21 10:42 Alkaline Phosphatase 42 units/L (35-129) 03/05/21 10:42 Total Protein 5.9 g/dL (6.3-8.2) L 03/05/21 10:42 Albumin 3.1 g/dL (3.9-5) L 03/05/21 10:42 Albumin/Globulin Ratio 1.1 % 03/05/21 10:42 Triglycerides 99 mg/dL (2-149) 03/05/21 10:42 Cholesterol 211 mg/dL (50-199) H 03/05/21 10:42 LDL Cholesterol Direct 159 mg/dL (50-130) H 03/05/21 10:42 HDL Cholesterol 43 mg/dL (40-59) 03/05/21 10:42 Cholesterol/HDL Ratio 4.90 % 03/05/21 10:42 TSH 0.673 mlU/mL (0.270-4.200) 03/05/21 10:42 Last Vital Signs Temp 98.9 F 03/12/21 07:27 Pulse 81 03/12/21 09:07 Resp 16 03/12/21 07:27 BP 139/72 03/12/21 09:07 Pulse Ox 99 03/12/21 07:27
[2021-03-12] MEDS: traZODone 50 MG TAB PO SCH (21:08)
[2021-03-13 08:28] VITALS: BP 119/81
--- NOTE | 2021-03-13 09:37 | Discharge Summary ---
Providers - Providers Date of Admission: 03/05/21 04:19 Date of discharge: 03/13/21 Attending physician: ESTRADA MELO MD 03/05/21 02:55 Consult to Dietitian/Nutrition [CONS] Routine Physician Instructions: Possible for Low Sodium Diet Reason For Exam: Hx/o Hypertension Reason for Consult: Diet education Consult to Physician [CONS] Routine Comment: Consulting Provider: JOSHUA SALVADOR Physician Instructions: Manage pt existing condiitons Reason For Exam: New pt consult Primary care physician: DOWEL STICKER OPERATOR Hospitalization Reason for admission: psychosis Admitting Diagnosis: F20.9 - SCHIZOPHRENIA, UNSPECIFIED Condition: Stable Hospital course: The patient was provided inpatient psychiatric treatment with safe and supportive care, medication adjustment, adverse effect monitoring, medical evaluations, medical treatments, assessment and psycho-education. The patient's mood, cognition, behavior, moral support are improved and stabilized. St the time of discharge, the patient had no endangering behavior and no debilitating adverse effects. The patient agreed on potential consequences of no treatment and gave informed consent. 03/05 Bethanie Tracey is a 70y/o female patient who was admitted to [facility] for bizarre behavior and psychosis. During my evaluation of the patient she is uncooperative, argumentative. The patient appears paranoid and guarded. She refused to answer any questions. The patient tells me her name is not "Mrs Kovacs" and states she "does not have to tell me." 03/06/2021: The patient was seen resting in bed. The patient refused to answer questions. Unable to assess SI/HI/AVHs. Per nurse, the patient is non compliant with medications. 03/07/2021: The patient was seen resting in bed, she continues to be mute. Unable to assess SI/HI/AVHs. Per nurse, the patient had a quiet night. No changes made today. 03/08 The patient was seen today. She is avoidant and uncooperative. She is upset and tells me she was sleeping fine until I woke her up. She tells me her name is not Mrs. Kovacs. She refuses to answer any questions. 03/09 The patient was seen today. She is avoidant and uncooperative. She is still paranoid. She is irritable, and tells me to "stop fuing with her." She says my "name is not Mrs. Kovacs." She then says "I'm doing fine if you would leave me alone." She would not answer any more questions after this. 03/10 The patient was seen today. She is more cooperative and talkative today than yesterday, but she is still paranoid. She is irritable. She says "I'm not angry at nobody. I'm not gone let none of yall get me upset." She denies hallucination. She also denies SI/HI. She says "none of that is in my head." The patient does become irritable at me because I call her Mrs Kovacs. She says "that's not my name. Just call me what you want to call me. My name is not Bethanie." 03/11 The patient was seen today. She is lying down asleep. She easily arouses. She says she "already ate breakfast" when asking about her appetite. The patient says she slept good. She denies SI/HI or hallucinations of any kind. 03/12 The patient was seen today. She is lying down asleep. She easily arouses. The patient is easily irritable. She says she slept well. She denies SI/HI or hallucinations. 03/13 The patient was seen today. She was in a much better mood today. I advised the patient that she would be going home. She was excited to hear this. She denies SI/HI. She says ""not I feel good this morning." She asked if she could call her . The patient denies SI/HI or hallucinations Disposition: 01 HOME / SELF CARE / HOMELESS Time spent for discharge: 35 Allergies/Adverse Reactions: Allergies No Known Drug Allergies Allergy (Verified 03/05/21 02:54) Unknown Vital Signs: Last Vital Signs Temp 100.6 F H 03/13/21 07:27 Pulse 99 H 03/13/21 07:27 Resp 18 03/13/21 07:27 BP 119/81 03/13/21 07:27 Pulse Ox 98 03/13/21 07:27 Last Lab: Laboratory Last Values WBC 4.1 K/mm3 (4.5-11.0) L 03/05/21 10:42 RBC 4.06 M/mm3 (3.65-5.03) 03/05/21 10:42 Hgb 12.6 gm/dl (10.1-14.3) 03/05/21 10:42 Hct 35.9 % (30.3-42.9) 03/05/21 10:42 MCV 88 fl (79-97) 03/05/21 10:42 MCH 31 pg (28-32) 03/05/21 10:42 MCHC 35 % (30-34) H 03/05/21 10:42 RDW 13.4 % (13.2-15.2) 03/05/21 10:42 Plt Count 218 K/mm3 (140-440) 03/05/21 10:42 Lymph % (Auto) 30.3 % (13.4-35.0) 03/05/21 10:42 [place] % (Auto) 5.6 % (0.0-7.3) 03/05/21 10:42 Eos % (Auto) 2.6 % (0.0-4.3) 03/05/21 10:42 Baso % (Auto) 1.1 % (0.0-1.8) 03/05/21 10:42 Lymph # (Auto) 1.2 K/mm3 (1.2-5.4) 03/05/21 10:42 [place] # (Auto) 0.2 K/mm3 (0.0-0.8) 03/05/21 10:42 Eos # (Auto) 0.1 K/mm3 (0.0-0.4) 03/05/21 10:42 Baso # (Auto) 0.0 K/mm3 (0.0-0.1) 03/05/21 10:42 Seg Neutrophils % 60.4 % (40.0-70.0) 03/05/21 10:42 Seg Neutrophils # 2.5 K/mm3 (1.8-7.7) 03/05/21 10:42 Sodium 143 mmol/L (137-145) 03/09/21 14:05 Potassium 4.3 mmol/L (3.6-5.0) 03/09/21 14:05 Chloride 103.0 mmol/L (98-107) 03/09/21 14:05 Carbon Dioxide 30 mmol/L (22-30) 03/09/21 14:05 Anion Gap 14 mmol/L 03/09/21 14:05 BUN 18 mg/dL (7-17) H 03/09/21 14:05 Creatinine 0.8 mg/dL (0.6-1.2) 03/09/21 14:05 Estimated GFR > 60 ml/min 03/09/21 14:05 BUN/Creatinine Ratio 23 % 03/09/21 14:05 Glucose 88 mg/dL (65-100) 03/09/21 14:05 POC Glucose 74 mg/dL (70-105) 03/13/21 06:14 Hemoglobin A1c 5.5 % (4-6) 03/05/21 10:42 Calcium 9.1 mg/dL (8.4-10.2) 03/09/21 14:05 Total Bilirubin 0.40 mg/dL (0.1-1.2) 03/05/21 10:42 AST 15 units/L (5-40) 03/05/21 10:42 ALT < 5 units/L (7-56) L 03/05/21 10:42 Alkaline Phosphatase 42 units/L (35-129) 03/05/21 10:42 Total Protein 5.9 g/dL (6.3-8.2) L 03/05/21 10:42 Albumin 3.1 g/dL (3.9-5) L 03/05/21 10:42 Albumin/Globulin Ratio 1.1 % 03/05/21 10:42 Triglycerides 99 mg/dL (2-149) 03/05/21 10:42 Cholesterol 211 mg/dL (50-199) H 03/05/21 10:42 LDL Cholesterol Direct 159 mg/dL (50-130) H 03/05/21 10:42 HDL Cholesterol 43 mg/dL (40-59) 03/05/21 10:42 Cholesterol/HDL Ratio 4.90 % 03/05/21 10:42 TSH 0.673 mlU/mL (0.270-4.200) 03/05/21 10:42 Core Measure Documentation - Palliative Care Palliative Care/ Comfort Measures: Not Applicable - Core Measures Any of the following diagnoses?: none Exam - Constitutional Vitals: Temp Pulse Resp BP Pulse Ox 100.6 F H 99 H 18 119/81 98 03/13/21 07:27 03/13/21 07:27 03/13/21 07:27 03/13/21 07:27 03/13/21 07:27 General appearance: Present: no acute distress - EENT Eyes: Present: PERRL, EOM intact ENT: hearing intact, clear oral mucosa - Neck Neck: Present: supple, normal ROM - Respiratory Respiratory effort: normal Plan Activity: advance as tolerated Weight Bearing Status: Weight Bear as Tolerated Care Plan Goals: Maintain good and stable mental health Plan of Treatment: The patient should be compliant with medications, not to use drugs, and not to drink alcohol. The patient understands that if suicidal ideas, homicidal ideas or any endangering feeling arise, the patient should seek assistance including, but not limited to crisis hotline, and emergency room. Assessment: Schizophrenia Follow up with: PRIMARY CARE, [Primary Care Provider] - 7 Days Prescriptions: traZODone [Desyrel] 50 mg PO QHS #30 tablet Melatonin [Melatonin 5MG TAB] 5 mg PO QHS PRN #30 tablet PRN Reason: Sleep hydrALAZINE [Apresoline TAB] 10 mg PO Q6H PRN #120 tablet PRN Reason: Hypertension Divalproex [Alba [place]] 500 mg PO BID #60 haloperidoL [Haldol] 5 mg PO BID #60 tablet
[2021-03-13] MEDS: BENZTROPINE 1 MG TAB PO SCH (10:08)
[2021-03-13] MEDS: HALOPERIDOL 5 MG TAB PO SCH (10:08)
[2021-03-13] MEDS: carBAMazepine 200 MG TAB PO SCH (10:08)
[2021-03-13] MEDS: LISINOPRIL 10 MG TAB PO SCH (10:08)
== END 2021-03-13 12:25 | disposition home or self-care (01) | DRG 885 ==
LOC: UNDOADMIN 02:05 → 3A 02:05 → 5A 04:19
PROVIDERS: ADMIT Psychiatry & Neurology Psychiatry; ATTEND Psychiatry & Neurology Psychiatry
DX: F20.9 Schizophrenia, unspecified (principal); I10 Essential (primary) hypertension; F31.9 Bipolar disorder, unspecified; Z20.822 Contact with and (suspected) exposure to COVID-19; Z86.39 Personal history of other endocrine, nutritional and metabolic disease
CPT/HCPCS: 36415; 80048; 80053; 80061; 82962; 83036; 84443; 85025; G0378; J1630; J1631; J2060; U0003

== ENCOUNTER 2021-04-04 09:15 | Inpatient (IN) | payer MEDICARE ==
[2021-04-05 05:28] LABS: Basophils % (Auto) 0.7 % (0.0-1.8); Eosinophils # (Auto) 0.1 K/mm3 (0.0-0.4); Eosinophils % (Auto) 3.3 % (0.0-4.3); Hematocrit 35.1 % (30.3-42.9); Hemoglobin 12.4 gm/dl (10.1-14.3); Lymphocytes # (Auto) 1.4 K/mm3 (1.2-5.4); Mean Corpuscular HGB Conc 35 % (30-34); Mean Corpuscular Volume 88 fl (79-97); Monocytes # (Auto) 0.3 K/mm3 (0.0-0.8); Monocytes % (Auto) 7.3 % (0.0-7.3); Platelet Count 201 K/mm3 (140-440); Red Blood Count 3.98 M/mm3 (3.65-5.03); Red Cell Distribution Width 13.8 % (13.2-15.2)
[2021-04-05 05:52] LABS: Albumin 3.2 g/dL (3.9-5); BUN/Creatinine Ratio 26; Blood Urea Nitrogen 23 mg/dL (7-17); Calcium 8.8 mg/dL (8.4-10.2); Chol/HDL Ratio 4.83 %; HDL Cholesterol 48 mg/dL (40-59); Hemolysis Index 3; LDL Cholesterol,Direct 162 mg/dL (50-130)
[2021-04-05 05:57] LABS: Alanine Aminotransferase < 5 units/L (7-56)
--- NOTE | 2021-04-05 08:53 | History and Physical Report ---
GP History & Physical - History of Present Illness Date of admission: 04/04/21 Date of Examination: 04/05/21 Reason for Admission: Danger to self, Failure of Outpatient Treatment, Severe anxiety/depression History of Present Illness: Bethanie Tracey is a 70y/o female patient who is known to me from a previous visit. The patient was said to have stood in front of a school bus and refused to move. During my evaluation of the patient she is standing in the [place]nandez and staring bizarrely. Her eyes are wide and she's looking intensely. The patient is irritable and refused to cooperative with the evaluation. She is also delusional. When I greet her, she tells me her name is not "Mrs Kovacs or Mrs. Tracey." She says "it is Jeanne Rahman." She then walks off. PAST PSYCHIATRIC HISTORY: Could not obtain PAST MEDICAL HISTORY: None reported or document Family Psychiatric History: None reported or documented SOCIAL HISTORY Could not obtain REVIEW OF SYSTEMS Could not obtain MENTAL STATUS EXAMINATION could not obtain Assessment and Plan (1) Schizophrenia Current Visit: Yes Status: Acute Treatment Plan Patient admitted for inpatient psychiatric evaluation, medication adjustment and close monitoring The patient's behavior, mood, sleep and appetite will be closely monitored. Patient enrolled in individual and group therapeutic sessions and encouraged to attend. Patient provided with a safe and structured environment. Patient's physical health needs will be addressed by the Hospitalist. Hospitalist Consulted Labs including CBC, CMP, Lipid profile and Hemoglobin A1C levels ordered for baseline reference Social Assessment will be completed and the Pecan Mallow Dipper will work with patient and family to ensure a suitable and safe disposition Medication adjustment will be made as clinically indicated Started Home meds Usual Wellness Judaism/Preservation: - Start Trazodone 50 mg po QHS & 50 mg po QHS PRN between 10 PM & 2 AM for insomnia - Start Melatonin 5 mg po QHS to promote circadian rhythm The patient agreed on the treatment plan, understood the risk, benefit, alternative treatment, potential consequence of no treatment, and gave informed consent. Estimated days: 6 Post hospital care: primary care provider, psychiatric provider Case staffed with Dr. Naranjo Legal Status: Voluntary Reaction to Hospitalization: Accepting Medications and Allergies Allergies Allergy/AdvReac Type Severity Reaction Status Date / Time No Known Drug Allergies Allergy Unknown Verified 03/05/21 02:54 Home Medications Medication Instructions Recorded Confirmed Last Taken Type Benztropine [Cogentin] 1 mg PO DAILY 03/05/21 04/05/21 Unknown History carBAMazepine [TEGretol] 200 mg PO BID 03/05/21 04/05/21 Unknown History lisinopriL [Lisinopril] 10 mg PO DAILY 03/05/21 04/05/[address] [Depakote Dr] 500 mg PO BID #60 03/13/21 04/05/21 Unknown Rx Melatonin [Melatonin 5MG TAB] 5 mg PO QHS PRN #30 tablet 03/13/21 04/05/21 Unknown Rx haloperidoL [Haldol] 5 mg PO BID #60 tablet 03/13/21 04/05/21 Unknown Rx hydrALAZINE [Apresoline TAB] 10 mg PO Q6H PRN #120 tablet 03/13/21 04/05/21 Unknown Rx traZODone [Desyrel] 50 mg PO QHS #30 tablet 03/13/21 04/05/21 Unknown Rx Results - Results Labs/Vitals: Laboratory Last Values WBC 4.4 K/mm3 (4.5-11.0) L 04/05/21 05:05 RBC 3.98 M/mm3 (3.65-5.03) 04/05/21 05:05 Hgb 12.4 gm/dl (10.1-14.3) 04/05/21 05:05 Hct 35.1 % (30.3-42.9) 04/05/21 05:05 MCV 88 fl (79-97) 04/05/21 05:05 MCH 31 pg (28-32) 04/05/21 05:05 MCHC 35 % (30-34) H 04/05/21 05:05 RDW 13.8 % (13.2-15.2) 04/05/21 05:05 Plt Count 201 K/mm3 (140-440) 04/05/21 05:05 Lymph % (Auto) 32.0 % (13.4-35.0) 04/05/21 05:05 [place] % (Auto) 7.3 % (0.0-7.3) 04/05/21 05:05 Eos % (Auto) 3.3 % (0.0-4.3) 04/05/21 05:05 Baso % (Auto) 0.7 % (0.0-1.8) 04/05/21 05:05 Lymph # (Auto) 1.4 K/mm3 (1.2-5.4) 04/05/21 05:05 [place] # (Auto) 0.3 K/mm3 (0.0-0.8) 04/05/21 05:05 Eos # (Auto) 0.1 K/mm3 (0.0-0.4) 04/05/21 05:05 Baso # (Auto) 0.0 K/mm3 (0.0-0.1) 04/05/21 05:05 Seg Neutrophils % 56.7 % (40.0-70.0) 04/05/21 05:05 Seg Neutrophils # 2.5 K/mm3 (1.8-7.7) 04/05/21 05:05 Sodium 143 mmol/L (137-145) 04/05/21 05:05 Potassium 3.7 mmol/L (3.6-5.0) 04/05/21 05:05 Chloride 109.8 mmol/L (98-107) H 04/05/21 05:05 Carbon Dioxide 24 mmol/L (22-30) 04/05/21 05:05 Anion Gap 13 mmol/L 04/05/21 05:05 BUN 23 mg/dL (7-17) H 04/05/21 05:05 Creatinine 0.9 mg/dL (0.6-1.2) 04/05/21 05:05 Estimated GFR > 60 ml/min 04/05/21 05:05 BUN/Creatinine Ratio 26 % 04/05/21 05:05 Glucose 102 mg/dL (65-100) H 04/05/21 05:05 POC Glucose 126 mg/dL (70-105) H 04/04/21 19:32 Hemoglobin A1c 5.1 % (4-6) 04/05/21 05:05 Calcium 8.8 mg/dL (8.4-10.2) 04/05/21 05:05 Total Bilirubin 0.30 mg/dL (0.1-1.2) 04/05/21 05:05 AST 11 units/L (5-40) 04/05/21 05:05 ALT < 5 units/L (7-56) L 04/05/21 05:05 Alkaline Phosphatase 51 units/L (35-129) 04/05/21 05:05 Total Protein 6.1 g/dL (6.3-8.2) L 04/05/21 05:05 Albumin 3.2 g/dL (3.9-5) L 04/05/21 05:05 Albumin/Globulin Ratio 1.1 % 04/05/21 05:05 Triglycerides 79 mg/dL (2-149) 04/05/21 05:05 Cholesterol 232 mg/dL (50-199) H 04/05/21 05:05 LDL Cholesterol Direct 162 mg/dL (50-130) H 04/05/21 05:05 HDL Cholesterol 48 mg/dL (40-59) 04/05/21 05:05 Cholesterol/HDL Ratio 4.83 % 04/05/21 05:05 TSH 0.324 mlU/mL (0.270-4.200) 04/05/21 05:05 Last Vital Signs Temp 98.7 F 04/04/21 22:00 Pulse 93 H 04/04/21 22:00 Resp 20 04/04/21 22:00 BP 124/86 04/04/21 22:00 Pulse Ox 94 04/04/21 22:00 Physical Examination - Constitutional Vitals: Vital Signs Temp Pulse Resp BP Pulse Ox 98.7 F 93 H 20 124/86 94 04/04/21 22:00 04/04/21 22:00 04/04/21 22:00 04/04/21 22:00 04/04/21 22:00 Temperature -Last 24 Hours Temperature 98.7 F Mental Status Exam - Vital signs Last Vital Signs Temp 98.7 F 04/04/21 22:00 Pulse 93 H 04/04/21 22:00 Resp 04/04/21 22:00 BP 124/86 04/04/21 22:00 Pulse Ox 94 04/04/21 22:00 Physician Certification - Certification Statement Physician Certification Statement: This is an acknowledgement statement that BETHANIE TRACEY is a 70 year old F who requires inpatient psychiatric admission for treatment which could reasonably be expected to improve the patient's condition for Estimated period of time patient will need to remain in the hospital: [ ] Plan for post-hospital care: [ ]
[2021-04-05] MEDS ORDERED: MELATONIN 5 MG TAB PO PRN (08:55)
[2021-04-05] MEDS ORDERED: hydrALAZINE 10 MG TAB PO PRN (08:55)
[2021-04-05] MEDS: DIVALPROEX DR 500 MG TAB PO SCH ×2 (09:51→21:09)
[2021-04-05] MEDS: BENZTROPINE 1 MG TAB PO SCH (09:51)
[2021-04-05] MEDS: HALOPERIDOL 5 MG TAB PO SCH ×2 (09:51→21:08)
[2021-04-05] MEDS: carBAMazepine 200 MG TAB PO SCH ×2 (09:51→21:09)
[2021-04-05] MEDS: LISINOPRIL 10 MG TAB PO SCH (09:58)
[2021-04-05] MEDS: traZODone 50 MG TAB PO SCH (21:09)
--- NOTE | 2021-04-06 08:34 | Consultation ---
History of Present Illness - Reason for Consult Consult date: 04/06/21 medical management - History of Present Illness HPI: Per psychiatry note: Bethanie Tracey is a 70y/o female patient who is known to me from a previous visit. The patient was said to have stood in front of a school bus and refused to move. During my evaluation of the patient she is standing in the [place] and staring bizarrely. Her eyes are wide and she's looking intensely. The patient is irritable and refused to cooperative with the evaluation. She is also delusional. When I greet her, she tells me her name is not "Mrs Kovacs or Mrs. Tracey." She says "it is Jeanne Rahman." She then walks off. On my encounter, patient had no acute complaints. She was very noncompliant with questioning during the interview. She did deny any complaints of headache, nausea, vomiting, chest pain, shortness of breath, abdominal pain, change in bowel habits, pain. Of note, patient had been admitted to the psych floor approximately 1 month ago. At the time her blood pressure was difficult to control and she was also noted to have low potassium which appears to be chronic in nature. PMHx: Chronically low potassium Essential hypertension Schizophrenia PSHx: Denies FHx: Could not obtain SHx: Tobacco use-could not obtain ETOH Use-did not obtain Recreational Drug Use-could not obtain Occupation-could not obtain PCP-could not obtain Medications and Allergies Allergies Allergy/AdvReac Type Severity Reaction Status Date / Time No Known Drug Allergies Allergy Unknown Verified 03/05/21 02:54 Home Medications Medication Instructions Recorded Confirmed Last Taken Type Benztropine [Cogentin] 1 mg PO DAILY 03/05/21 04/05/21 Unknown History carBAMazepine [TEGretol] 200 mg PO BID 03/05/21 04/05/21 Unknown History lisinopriL [Lisinopril] 10 mg PO DAILY 03/05/21 04/05/21 Unknown History Divalproex [[place]] 500 mg PO BID #60 03/13/21 04/05/21 Unknown Rx Melatonin [Melatonin 5MG TAB] 5 mg PO QHS PRN #30 tablet 03/13/21 04/05/21 Unknown Rx haloperidoL [Haldol] 5 mg PO BID #60 tablet 03/13/21 04/05/21 Unknown Rx hydrALAZINE [Apresoline TAB] 10 mg PO Q6H PRN #120 tablet 03/13/21 04/05/21 Unknown Rx traZODone [Desyrel] 50 mg PO QHS #30 tablet 03/13/21 04/05/21 Unknown Rx Active Meds: Active Medications Benztropine Mesylate (Benztropine 1 Mg Tab) 1 mg PO DAILY [facility] Last Admin: 04/05/21 09:51 Dose: 1 mg Documented by: Carbamazepine (Carbamazepine 200 Mg Tab) 200 mg PO BID [facility] Last Admin: 04/05/21 21:09 Dose: 200 mg Documented by: Divalproex Sodium (Divalproex Dr 500 Mg Tab) 500 mg PO BID [facility] Last Admin: 04/05/21 21:09 Dose: 500 mg Documented by: Haloperidol (Haloperidol 5 Mg Tab) 5 mg PO BID [facility] Last Admin: 04/05/21 21:08 Dose: 5 mg Documented by: Hydralazine HCl (Hydralazine 10 Mg Tab) 10 mg PO Q6H PRN PRN Reason: Hypertension Lisinopril (Lisinopril 10 Mg Tab) 10 mg PO DAILY [facility] Last Admin: 04/05/21 09:58 Dose: 10 mg Documented by: Melatonin (Melatonin 5 Mg Tab) 5 mg PO QHS PRN PRN Reason: Sleep Trazodone HCl (Trazodone 50 Mg Tab) 50 mg PO QHS [facility] Last Admin: 04/05/21 21:09 Dose: 50 mg Documented by: Review of Systems All systems: negative (For stated in HPI) Exam - Physical Exam Narrative exam: Physical Exam: VITAL SIGNS: Reviewed. GENERAL: The patient appears normally developed, Vital signs as documented. Elderly woman not cooperative HEAD: No signs of head trauma. EYES: Pupils are equal. Extraocular motions intact. EARS: Hearing grossly intact. MOUTH: Oropharynx is normal. NECK: No adenopathy, no JVD. CHEST: Chest with clear breath sounds bilaterally. No wheezes, rales, or rhonchi. CARDIAC: Regular rate and rhythm. S1 and S2, without murmurs, gallops, or rubs. VASCULAR: No Edema. Peripheral pulses normal and equal in all extremities. ABDOMEN: Soft, non tender and non distended. No rebound or guarding, and no masses palpated. Bowel Sounds normal. MUSCULOSKELETAL: Good range of motion of all major joints. Extremities without clubbing, cyanosis or edema. NEUROLOGIC EXAM: Alert although orientation could not be verified as patient withdrawn no focal sensory or strength deficits. PSYCHIATRIC: Delusional SKIN: detail exam as documented in skin assessment - Constitutional Vitals: Temp Pulse Resp BP Pulse Ox 98.4 F 72 18 120/62 99 04/06/21 07:44 04/06/21 07:44 04/06/21 07:44 04/06/21 07:44 04/06/21 07:44 Results - Labs CBC & Chem 7: 04/05/21 05:05 04/05/21 05:05 Assessment and Plan Assessment 1. acute psychosis 2. Schizophrenia 3. Bipolar disorder 4. Essential hypertension 5. History of Chronic hypokalemia, 3.7 this admission. Plan Continue supportive care -home lisinopril increased to 20 mg daily as was recommended last admission -as needed hydralazine on MAR Monitor potassium level intermittently while in hospital Continue appropriate psychiatric medications per psych team DVT and GI prophylaxis ordered -Recommend intermittent monitoring of QTC Internal medicine will continue following along - Patient Problems (1) Acute psychosis Current Visit: Yes Status: Acute (2) Schizophrenia Current Visit: Yes Status: Acute (3) Bipolar disorder Current Visit: Yes Status: Acute (4) Essential hypertension Current Visit: Yes Status: Acute (5) Chronic hypokalemia Current Visit: Yes Status: Acute (6) DVT prophylaxis Current Visit: Yes Status: Acute
[2021-04-06] MEDS: BENZTROPINE 1 MG TAB PO SCH (09:56)
[2021-04-06] MEDS: HALOPERIDOL 5 MG TAB PO SCH ×2 (09:56→21:06)
[2021-04-06] MEDS: DIVALPROEX DR 500 MG TAB PO SCH ×3 (09:56→21:06)
[2021-04-06] MEDS: LISINOPRIL 10 MG TAB PO SCH (09:56)
[2021-04-06] MEDS: carBAMazepine 200 MG TAB PO SCH ×2 (09:57→21:06)
--- NOTE | 2021-04-06 10:12 | Progress Note ---
Subjective - Reason for Consult Consult date: 04/06/21 Reason for consult: psychosis - Chief Complaint Chief complaint: The patient was seen today. She is irritable, paranoid and delusional. She tells me not to call her "by that name. My name is Jeanne." When asking was she SI/HI, she replies "what do you think. You're supposed to be smarter than me." She denies hallucinations. She then says "people are lying around here." REVIEW OF SYSTEMS Could not obtain MENTAL STATUS EXAMINATION could not obtain Assessment and Plan (1) Schizophrenia Current Visit: Yes Status: Acute Treatment Plan Patient admitted for inpatient psychiatric evaluation, medication adjustment and close monitoring The patient's behavior, mood, sleep and appetite will be closely monitored. Patient enrolled in individual and group therapeutic sessions and encouraged to attend. Patient provided with a safe and structured environment. Patient's physical health needs will be addressed by the Hospitalist. Hospitalist Consulted Labs including CBC, CMP, Lipid profile and Hemoglobin A1C levels ordered for baseline reference Valproic 04/08 Social Assessment will be completed and the Travel Sales Consultant will work with patient and family to ensure a suitable and safe disposition Medication adjustment will be made as clinically indicated Increased Depakote DR 500mg po TID Usual Wellness Yarsanism/Preservation: - Start Trazodone 50 mg po QHS & 50 mg po QHS PRN between 10 PM & 2 AM for insomnia - Start Melatonin 5 mg po QHS to promote circadian rhythm The patient agreed on the treatment plan, understood the risk, benefit, al ternative treatment, potential consequence of no treatment, and gave informed consent. Estimated days: 6 Post hospital care: primary care provider, psychiatric provider Case staffed with Dr. Naranjo Mental Status Exam - Vital signs Last Vital Signs Temp 98.4 F 04/06/21 08:36 Pulse 81 04/06/21 09:56 Resp 18 04/06/21 07:44 BP 120/62 04/06/21 09:56 Pulse Ox 99 04/06/21 07:44
[2021-04-06] MEDS: FAMOTIDINE 20 MG TAB PO SCH (13:08)
[2021-04-06] MEDS: traZODone 50 MG TAB PO SCH (21:06)
[2021-04-06] MEDS: ENOXAPARIN 40 MG/0.4 ML INJ SUB-Q SCH (21:07)
--- NOTE | 2021-04-07 07:49 | Progress Note ---
Assessment and Plan Assessment and plan: Assessment 1. acute psychosis 2. Schizophrenia 3. Bipolar disorder 4. Essential hypertension 5. History of Chronic hypokalemia, 3.7 this admission. Plan Continue supportive care -home lisinopril increased to 20 mg daily as was recommended last admission -as needed hydralazine on MAR Monitor potassium level intermittently while in hospital Continue appropriate psychiatric medications per psych team DVT and GI prophylaxis ordered -Recommend intermittent monitoring of QTC Internal medicine will follow along as needed. - Patient Problems (1) Acute psychosis Current Visit: Yes Status: Acute (2) Schizophrenia Current Visit: Yes Status: Acute (3) Bipolar disorder Current Visit: Yes Status: Acute (4) Essential hypertension Current Visit: Yes Status: Acute (5) Chronic hypokalemia Current Visit: Yes Status: Acute (6) DVT prophylaxis Current Visit: Yes Status: Acute History Interval history: Denies any acute complaints on encounter Hospitalist Physical - Physical exam Narrative exam: Physical Exam: VITAL SIGNS: Reviewed. GENERAL: The patient appears normally developed, Vital signs as documented. Elderly woman not cooperative HEAD: No signs of head trauma. EYES: Pupils are equal. Extraocular motions intact. EARS: Hearing grossly intact. MOUTH: Oropharynx is normal. NECK: No adenopathy, no JVD. CHEST: Chest with clear breath sounds bilaterally. No wheezes, rales, or rhonchi. CARDIAC: Regular rate and rhythm. S1 and S2, without murmurs, gallops, or rubs. VASCULAR: No Edema. Peripheral pulses normal and equal in all extremities. ABDOMEN: Soft, non tender and non distended. No rebound or guarding, and no masses palpated. Bowel Sounds normal. MUSCULOSKELETAL: Good range of motion of all major joints. Extremities without clubbing, cyanosis or edema. NEUROLOGIC EXAM: Alert although orientation could not be verified as patient withdrawn no focal sensory or strength deficits. PSYCHIATRIC: Delusional SKIN: detail exam as documented in skin assessment - Constitutional Vitals: Temp Pulse Resp BP Pulse Ox 98.4 F 60 18 114/75 97 04/06/21 22:00 04/06/21 22:00 04/06/21 22:00 04/06/21 22:00 04/06/21 22:00 Results - Labs CBC & Chem 7: 04/05/21 05:05 04/05/21 05:05 Labs: Laboratory Last Values WBC 4.4 K/mm3 (4.5-11.0) L 04/05/21 05:05 RBC 3.98 M/mm3 (3.65-5.03) 04/05/21 05:05 Hgb 12.4 gm/dl (10.1-14.3) 04/05/21 05:05 Hct 35.1 % (30.3-42.9) 04/05/21 05:05 MCV 88 fl (79-97) 04/05/21 05:05 MCH 31 pg (28-32) 04/05/21 05:05 MCHC 35 % (30-34) H 04/05/21 05:05 RDW 13.8 % (13.2-15.2) 04/05/21 05:05 Plt Count 201 K/mm3 (140-440) 04/05/21 05:05 Lymph % (Auto) 32.0 % (13.4-35.0) 04/05/21 05:05 [place] % (Auto) 7.3 % (0.0-7.3) 04/05/21 05:05 Eos % (Auto) 3.3 % (0.0-4.3) 04/05/21 05:05 Baso % (Auto) 0.7 % (0.0-1.8) 04/05/21 05:05 Lymph # (Auto) 1.4 K/mm3 (1.2-5.4) 04/05/21 05:05 [place] # (Auto) 0.3 K/mm3 (0.0-0.8) 04/05/21 05:05 Eos # (Auto) 0.1 K/mm3 (0.0-0.4) 04/05/21 05:05 Baso # (Auto) 0.0 K/mm3 (0.0-0.1) 04/05/21 05:05 Seg Neutrophils % 56.7 % (40.0-70.0) 04/05/21 05:05 Seg Neutrophils # 2.5 K/mm3 (1.8-7.7) 04/05/21 05:05 Sodium 143 mmol/L (137-145) 04/05/21 05:05 Potassium 3.7 mmol/L (3.6-5.0) 04/05/21 05:05 Chloride 109.8 mmol/L (98-107) H 04/05/21 05:05 Carbon Dioxide 24 mmol/L (22-30) 04/05/21 05:05 Anion Gap 13 mmol/L 04/05/21 05:05 BUN 23 mg/dL (7-17) H 04/05/21 05:05 Creatinine 0.9 mg/dL (0.6-1.2) 04/05/21 05:05 Estimated GFR > 60 ml/min 04/05/21 05:05 BUN/Creatinine Ratio 26 % 04/05/21 05:05 Glucose 102 mg/dL (65-100) H 04/05/21 05:05 POC Glucose 71 mg/dL (70-105) 04/06/21 06:17 Hemoglobin A1c 5.1 % (4-6) 04/05/21 05:05 Calcium 8.8 mg/dL (8.4-10.2) 04/05/21 05:05 Total Bilirubin 0.30 mg/dL (0.1-1.2) 04/05/21 05:05 AST 11 units/L (5-40) 04/05/21 05:05 ALT < 5 units/L (7-56) L 04/05/21 05:05 Alkaline Phosphatase 51 units/L (35-129) 04/05/21 05:05 Total Protein 6.1 g/dL (6.3-8.2) L 04/05/21 05:05 Albumin 3.2 g/dL (3.9-5) L 04/05/21 05:05 Albumin/Globulin Ratio 1.1 % 04/05/21 05:05 Triglycerides 79 mg/dL (2-149) 04/05/21 05:05 Cholesterol 232 mg/dL (50-199) H 04/05/21 05:05 LDL Cholesterol Direct 162 mg/dL (50-130) H 04/05/21 05:05 HDL Cholesterol 48 mg/dL (40-59) 04/05/21 05:05 Cholesterol/HDL Ratio 4.83 % 04/05/21 05:05 TSH 0.324 mlU/mL (0.270-4.200) 04/05/21 05:05 Steward/IV: Voiding Method Toilet Active Medications - Current Medications Current Medications: Generic Name Dose Route Start Last Admin Trade Name Freq PRN Reason Stop Dose Admin Benztropine Mesylate 1 mg 04/05/21 10:00 04/06/21 09:56 Benztropine 1 Mg Tab PO 1 mg DAILY KENJI Administration Carbamazepine 200 mg 04/05/21 10:00 04/06/21 21:06 Carbamazepine 200 Mg Tab PO 200 mg BID KENJI Administration Divalproex Sodium 500 mg 04/06/21 14:00 04/06/21 21:[address] 500 Mg Tab PO 500 mg TID KENJI Administration Enoxaparin Sodium 40 mg 04/06/21 22:00 04/06/21 21:07 Enoxaparin 40 Mg/0.4 Ml Inj SUB-Q 40 mg QDAY@2200 KENJI Administration Protocol Famotidine 20 mg 04/06/21 13:00 04/06/21 13:08 Famotidine 20 Mg Tab PO 20 mg QDAY KENJI Administration Haloperidol 5 mg 04/05/21 10:00 04/06/21 21:06 Haloperidol 5 Mg Tab PO 5 mg BID KENJI Administration Hydralazine HCl 10 mg 04/05/21 08:55 Hydralazine 10 Mg Tab PO Q6H PRN Hypertension Lisinopril 20 mg 04/06/21 12:44 Lisinopril 10 Mg Tab PO DAILY KENJI Melatonin 5 mg 04/05/21 08:55 Melatonin 5 Mg Tab PO QHS PRN Sleep Trazodone HCl 50 mg 04/05/21 22:00 04/06/21 21:06 Trazodone 50 Mg Tab PO 50 mg QHS KENJI Administration
--- NOTE | 2021-04-07 09:22 | Progress Note ---
Subjective Date of service: 04/07/21 Principal diagnosis: schizophrenia Subjective Comment: The patient was seen today. She is still delusional and irritable. She at times has this bizarre look on her face. She says her name is "Jeanne." She points at me and tells me that I "changed her name to Mrs. Kovacs." She denies SI/HI. She says "I feel wonderful" when asked. She denies hallucinations. REVIEW OF SYSTEMS Could not obtain MENTAL STATUS EXAMINATION could not obtain Assessment and Plan (1) Schizophrenia Current Visit: Yes Status: Acute Treatment Plan Patient admitted for inpatient psychiatric evaluation, medication adjustment and close monitoring The patient's behavior, mood, sleep and appetite will be closely monitored. Patient enrolled in individual and group therapeutic sessions and encouraged to attend. Patient provided with a safe and structured environment. Patient's physical health needs will be addressed by the Hospitalist. Hospitalist Consulted Labs including CBC, CMP, Lipid profile and Hemoglobin A1C levels ordered for baseline reference Valproic 04/08 Social Assessment will be completed and the Licensed Nurse Practitioner will work with patient and family to ensure a suitable and safe disposition Medication adjustment will be made as clinically indicated Increased Depakote DR 500mg po TID yesterday Increase Haldol 5mg po TID Usual Wellness Jehovah'S Witness/Preservation: - Start Trazodone 50 mg po QHS & 50 mg po QHS PRN between 10 PM & 2 AM for insomnia - Start Melatonin 5 mg po QHS to promote circadian rhythm The patient agreed on the treatment plan, understood the risk, benefit, alternative treatment, potential consequence of no treatment, and gave informed consent. Estimated days: 6 Post hospital care: primary care provider, psychiatric provider Case staffed with Dr. Naranjo Medications and Allergies Allergies Allergy/AdvReac Type Severity Reaction Status Date / Time No Known Drug Allergies Allergy Unknown Verified 03/05/21 02:54 Home Medications Medication Instructions Recorded Confirmed Last Taken Type Benztropine [Cogentin] 1 mg PO DAILY 03/05/21 04/05/21 Unknown History carBAMazepine [TEGretol] 200 mg PO BID 03/05/21 04/05/21 Unknown History lisinopriL [Lisinopril] 10 mg PO DAILY 03/05/21 04/05/21 Unknown History Divalproex [[place]] 500 mg PO BID #60 03/13/21 04/05/21 Unknown Rx Melatonin [Melatonin 5MG TAB] 5 mg PO QHS PRN #30 tablet 03/13/21 04/05/21 Unknown Rx haloperidoL [Haldol] 5 mg PO BID #60 tablet 03/13/21 04/05/21 Unknown Rx hydrALAZINE [Apresoline TAB] 10 mg PO Q6H PRN #120 tablet 03/13/21 04/05/21 Unknown Rx traZODone [Desyrel] 50 mg PO QHS #30 tablet 03/13/21 04/05/21 Unknown Rx Active Meds: Active Medications Benztropine Mesylate (Benztropine 1 Mg Tab) 1 mg PO DAILY [facility] Last Admin: 04/06/21 09:56 Dose: 1 mg Documented by: Carbamazepine (Carbamazepine 200 Mg Tab) 200 mg PO BID [facility] Last Admin: 04/06/21 21:06 Dose: 200 mg Documented by: Divalproex Sodium (Divalproex Dr 500 Mg Tab) 500 mg PO TID [facility] Last Admin: 04/06/21 21:06 Dose: 500 mg Documented by: Enoxaparin Sodium (Enoxaparin 40 Mg/0.4 Ml Inj) 40 mg SUB-Q QDAY@2200 [facility]; Protocol Last Admin: 04/06/21 21:07 Dose: 40 mg Documented by: Famotidine (Famotidine 20 Mg Tab) 20 mg PO QDAY [facility] Last Admin: 04/06/21 13:08 Dose: 20 mg Documented by: Haloperidol (Haloperidol 5 Mg Tab) 5 mg PO BID [facility] Last Admin: 04/06/21 21:06 Dose: 5 mg Documented by: Hydralazine HCl (Hydralazine 10 Mg Tab) 10 mg PO Q6H PRN PRN Reason: Hypertension Lisinopril (Lisinopril 10 Mg Tab) 20 mg PO DAILY [facility] Melatonin (Melatonin 5 Mg Tab) 5 mg PO QHS PRN PRN Reason: Sleep Trazodone HCl (Trazodone 50 Mg Tab) 50 mg PO QHS [facility] Last Admin: 04/06/21 21:06 Dose: 50 mg Documented by: Results - Results Labs/Vitals: Laboratory Last Values WBC 4.4 K/mm3 (4.5-11.0) L 04/05/21 05:05 RBC 3.98 M/mm3 (3.65-5.03) 04/05/21 05:05 Hgb 12.4 gm/dl (10.1-14.3) 04/05/21 05:05 Hct 35.1 % (30.3-42.9) 04/05/21 05:05 MCV 88 fl (79-97) 04/05/21 05:05 MCH 31 pg (28-32) 04/05/21 05:05 MCHC 35 % (30-34) H 04/05/21 05:05 RDW 13.8 % (13.2-15.2) 04/05/21 05:05 Plt Count 201 K/mm3 (140-440) 04/05/21 05:05 Lymph % (Auto) 32.0 % (13.4-35.0) 04/05/21 05:05 [place] % (Auto) 7.3 % (0.0-7.3) 04/05/21 05:05 Eos % (Auto) 3.3 % (0.0-4.3) 04/05/21 05:05 Baso % (Auto) 0.7 % (0.0-1.8) 04/05/21 05:05 Lymph # (Auto) 1.4 K/mm3 (1.2-5.4) 04/05/21 05:05 [place] # (Auto) 0.3 K/mm3 (0.0-0.8) 04/05/21 05:05 Eos # (Auto) 0.1 K/mm3 (0.0-0.4) 04/05/21 05:05 Baso # (Auto) 0.0 K/mm3 (0.0-0.1) 04/05/21 05:05 Seg Neutrophils % 56.7 % (40.0-70.0) 04/05/21 05:05 Seg Neutrophils # 2.5 K/mm3 (1.8-7.7) 04/05/21 05:05 Sodium 143 mmol/L (137-145) 04/05/21 05:05 Potassium 3.7 mmol/L (3.6-5.0) 04/05/21 05:05 Chloride 109.8 mmol/L (98-107) H 04/05/21 05:05 Carbon Dioxide 24 mmol/L (22-30) 04/05/21 05:05 Anion Gap 13 mmol/L 04/05/21 05:05 BUN 23 mg/dL (7-17) H 04/05/21 05:05 Creatinine 0.9 mg/dL (0.6-1.2) 04/05/21 05:05 Estimated GFR > 60 ml/min 04/05/21 05:05 BUN/Creatinine Ratio 26 % 04/05/21 05:05 Glucose 102 mg/dL (65-100) H 04/05/21 05:05 POC Glucose 71 mg/dL (70-105) 04/06/21 06:17 Hemoglobin A1c 5.1 % (4-6) 04/05/21 05:05 Calcium 8.8 mg/dL (8.4-10.2) 04/05/21 05:05 Total Bilirubin 0.30 mg/dL (0.1-1.2) 04/05/21 05:05 AST 11 units/L (5-40) 04/05/21 05:05 ALT < 5 units/L (7-56) L 04/05/21 05:05 Alkaline Phosphatase 51 units/L (35-129) 04/05/21 05:05 Total Protein 6.1 g/dL (6.3-8.2) L 04/05/21 05:05 Albumin 3.2 g/dL (3.9-5) L 04/05/21 05:05 Albumin/Globulin Ratio 1.1 % 04/05/21 05:05 Triglycerides 79 mg/dL (2-149) 04/05/21 05:05 Cholesterol 232 mg/dL (50-199) H 04/05/21 05:05 LDL Cholesterol Direct 162 mg/dL (50-130) H 04/05/21 05:05 HDL Cholesterol 48 mg/dL (40-59) 04/05/21 05:05 Cholesterol/HDL Ratio 4.83 % 04/05/21 05:05 TSH 0.324 mlU/mL (0.270-4.200) 04/05/21 05:05 Last Vital Signs Temp 98.4 F 04/06/21 22:00 Pulse 60 04/06/21 22:00 Resp 18 04/06/21 22:00 BP 114/75 04/06/21 22:00 Pulse Ox 97 04/06/21 22:00
[2021-04-07] MEDS: LISINOPRIL 10 MG TAB PO SCH (11:16)
[2021-04-07] MEDS: carBAMazepine 200 MG TAB PO SCH ×2 (11:17→22:25)
[2021-04-07] MEDS: BENZTROPINE 1 MG TAB PO SCH (11:17)
[2021-04-07] MEDS: FAMOTIDINE 20 MG TAB PO SCH (11:17)
[2021-04-07] MEDS: HALOPERIDOL 5 MG TAB PO SCH ×3 (14:40→20:02)
[2021-04-07] MEDS: DIVALPROEX DR 500 MG TAB PO SCH ×4 (14:40→20:02)
[2021-04-07] MEDS: traZODone 50 MG TAB PO SCH (22:24)
[2021-04-07] MEDS: ENOXAPARIN 40 MG/0.4 ML INJ SUB-Q SCH (22:25)
--- NOTE | 2021-04-08 09:26 | Progress Note ---
Subjective Date of service: 04/08/21 Principal diagnosis: schizophrenia Subjective Comment: Per Nurse Note: Today the patient spent most of her time in bed. She isolates to herself. She spends time in the activity room during meals and she attended one group. She refused her midday haldol and depakote that was ordered. She became irritable and angrily stated she would not take it. She presents with bizarre affect. The patient will not shower or change clothes even with encouragement. Her appetite is good. She was medication compliant this morning but refused the midday meds. Will continue to monitor patient for safety. The patient was seen today. She is still delusional and irritable. The patient is convinced that her name is "Jeanne." She is irritated at me calling her by her name. She denies SI/HI. She then bucks her eyes and says "who told you that." The patient denies hallucinations. Reason for continued inpatient treatment: The patient continues to have psychosis and easily irritated. Will continue to treat and monitor. REVIEW OF SYSTEMS Could not obtain MENTAL STATUS EXAMINATION could not obtain Assessment and Plan (1) Schizophrenia Current Visit: Yes Status: Acute Treatment Plan Patient admitted for inpatient psychiatric evaluation, medication adjustment and close monitoring The patient's behavior, mood, sleep and appetite will be closely monitored. Patient enrolled in individual and group therapeutic sessions and encouraged to attend. Patient provided with a safe and structured environment. Patient's physical health needs will be addressed by the Hospitalist. Hospitalist Consulted Labs including CBC, CMP, Lipid profile and Hemoglobin A1C levels ordered for baseline reference Valproic 04/08 Social Assessment will be completed and the Roller Skates Assembler will work with patient and family to ensure a suitable and safe disposition Medication adjustment will be made as clinically indicated Depakote DR 500mg po TID Increase Haldol 5mg po TID yesterday Usual Wellness Hinduism/Preservation: - Start Trazodone 50 mg po QHS & 50 mg po QHS PRN between 10 PM & 2 AM for insomnia - Start Melatonin 5 mg po QHS to promote circadian rhythm The patient agreed on the treatment plan, understood the risk, benefit, alternative treatment, potential consequence of no treatment, and gave informed consent. Estimated days: 4 Post hospital care: primary care provider, psychiatric provider Case staffed with Dr. Naranjo Medications and Allergies Allergies Allergy/AdvReac Type Severity Reaction Status Date / Time No Known Drug Allergies Allergy Unknown Verified 03/05/21 02:54 Home Medications Medication Instructions Recorded Confirmed Last Taken Type Benztropine [Cogentin] 1 mg PO DAILY 03/05/21 04/05/21 Unknown History carBAMazepine [TEGretol] 200 mg PO BID 03/05/21 04/05/21 Unknown History lisinopriL [Lisinopril] 10 mg PO DAILY 03/05/21 04/05/[address] [Depakote Dr] 500 mg PO BID #60 03/13/21 04/05/21 Unknown Rx Melatonin [Melatonin 5MG TAB] 5 mg PO QHS PRN #30 tablet 03/13/21 04/05/21 Unknown Rx haloperidoL [Haldol] 5 mg PO BID #60 tablet 03/13/21 04/05/21 Unknown Rx hydrALAZINE [Apresoline TAB] 10 mg PO Q6H PRN #120 tablet 03/13/21 04/05/21 Unknown Rx traZODone [Desyrel] 50 mg PO QHS #30 tablet 03/13/21 04/05/21 Unknown Rx Active Meds: Active Medications Benztropine Mesylate (Benztropine 1 Mg Tab) 1 mg PO DAILY [facility] Last Admin: 04/07/21 11:17 Dose: 1 mg Documented by: Carbamazepine (Carbamazepine 200 Mg Tab) 200 mg PO BID [facility] Last Admin: 04/07/21 22:25 Dose: 200 mg Documented by: Divalproex Sodium (Divalproex Dr 500 Mg Tab) 500 mg PO TID [facility] Last Admin: 04/07/21 20:02 Dose: 500 mg Documented by: Enoxaparin Sodium (Enoxaparin 40 Mg/0.4 Ml Inj) 40 mg SUB-Q QDAY@2200 [facility]; Protocol Last Admin: 04/07/21 22:25 Dose: 40 mg Documented by: Famotidine (Famotidine 20 Mg Tab) 20 mg PO QDAY [facility] Last Admin: 04/07/21 11:17 Dose: 20 mg Documented by: Haloperidol (Haloperidol 5 Mg Tab) 5 mg PO TID [facility] Last Admin: 04/07/21 20:02 Dose: 5 mg Documented by: Hydralazine HCl (Hydralazine 10 Mg Tab) 10 mg PO Q6H PRN PRN Reason: Hypertension Lisinopril (Lisinopril 10 Mg Tab) 20 mg PO DAILY [facility] Last Admin: 04/07/21 11:16 Dose: 20 mg Documented by: Melatonin (Melatonin 5 Mg Tab) 5 mg PO QHS PRN PRN Reason: Sleep Trazodone HCl (Trazodone 50 Mg Tab) 50 mg PO QHS [facility] Last Admin: 04/07/21 22:24 Dose: 50 mg Documented by: Results - Results Labs/Vitals: Laboratory Last Values WBC 4.4 K/mm3 (4.5-11.0) L 04/05/21 05:05 RBC 3.98 M/mm3 (3.65-5.03) 04/05/21 05:05 Hgb 12.4 gm/dl (10.1-14.3) 04/05/21 05:05 Hct 35.1 % (30.3-42.9) 04/05/21 05:05 MCV 88 fl (79-97) 04/05/21 05:05 MCH 31 pg (28-32) 04/05/21 05:05 MCHC 35 % (30-34) H 04/05/21 05:05 RDW 13.8 % (13.2-15.2) 04/05/21 05:05 Plt Count 201 K/mm3 (140-440) 04/05/21 05:05 Lymph % (Auto) 32.0 % (13.4-35.0) 04/05/21 05:05 [place] % (Auto) 7.3 % (0.0-7.3) 04/05/21 05:05 Eos % (Auto) 3.3 % (0.0-4.3) 04/05/21 05:05 Baso % (Auto) 0.7 % (0.0-1.8) 04/05/21 05:05 Lymph # (Auto) 1.4 K/mm3 (1.2-5.4) 04/05/21 05:05 [place] # (Auto) 0.3 K/mm3 (0.0-0.8) 04/05/21 05:05 Eos # (Auto) 0.1 K/mm3 (0.0-0.4) 04/05/21 05:05 Baso # (Auto) 0.0 K/mm3 (0.0-0.1) 04/05/21 05:05 Seg Neutrophils % 56.7 % (40.0-70.0) 04/05/21 05:05 Seg Neutrophils # 2.5 K/mm3 (1.8-7.7) 04/05/21 05:05 Sodium 143 mmol/L (137-145) 04/05/21 05:05 Potassium 3.7 mmol/L (3.6-5.0) 04/05/21 05:05 Chloride 109.8 mmol/L (98-107) H 04/05/21 05:05 Carbon Dioxide 24 mmol/L (22-30) 04/05/21 05:05 Anion Gap 13 mmol/L 04/05/21 05:05 BUN 23 mg/dL (7-17) H 04/05/21 05:05 Creatinine 0.9 mg/dL (0.6-1.2) 04/05/21 05:05 Estimated GFR > 60 ml/min 04/05/21 05:05 BUN/Creatinine Ratio 26 % 04/05/21 05:05 Glucose 102 mg/dL (65-100) H 04/05/21 05:05 POC Glucose 71 mg/dL (70-105) 04/06/21 06:17 Hemoglobin A1c 5.1 % (4-6) 04/05/21 05:05 Calcium 8.8 mg/dL (8.4-10.2) 04/05/21 05:05 Total Bilirubin 0.30 mg/dL (0.1-1.2) 04/05/21 05:05 AST 11 units/L (5-40) 04/05/21 05:05 ALT < 5 units/L (7-56) L 04/05/21 05:05 Alkaline Phosphatase 51 units/L (35-129) 04/05/21 05:05 Total Protein 6.1 g/dL (6.3-8.2) L 04/05/21 05:05 Albumin 3.2 g/dL (3.9-5) L 04/05/21 05:05 Albumin/Globulin Ratio 1.1 % 04/05/21 05:05 Triglycerides 79 mg/dL (2-149) 04/05/21 05:05 Cholesterol 232 mg/dL (50-199) H 04/05/21 05:05 LDL Cholesterol Direct 162 mg/dL (50-130) H 04/05/21 05:05 HDL Cholesterol 48 mg/dL (40-59) 04/05/21 05:05 Cholesterol/HDL Ratio 4.83 % 04/05/21 05:05 TSH 0.324 mlU/mL (0.270-4.200) 04/05/21 05:05 Last Vital Signs Temp 98.2 F 04/07/21 20:07 Pulse 80 04/07/21 20:07 Resp 16 04/07/21 20:07 BP 147/77 04/07/21 20:07 Pulse Ox 99 04/07/21 20:07
[2021-04-08] MEDS: carBAMazepine 200 MG TAB PO SCH ×2 (09:34→21:43)
[2021-04-08] MEDS: DIVALPROEX DR 500 MG TAB PO SCH ×3 (09:34→19:55)
[2021-04-08] MEDS: BENZTROPINE 1 MG TAB PO SCH (09:34)
[2021-04-08] MEDS: HALOPERIDOL 5 MG TAB PO SCH ×3 (09:35→19:55)
[2021-04-08] MEDS: LISINOPRIL 10 MG TAB PO SCH (09:35)
[2021-04-08] MEDS: FAMOTIDINE 20 MG TAB PO SCH (09:35)
[2021-04-08] MEDS: traZODone 50 MG TAB PO SCH (21:43)
[2021-04-08] MEDS: ENOXAPARIN 40 MG/0.4 ML INJ SUB-Q SCH (21:49)
[2021-04-09] MEDS: BENZTROPINE 1 MG TAB PO SCH (09:57)
[2021-04-09] MEDS: DIVALPROEX DR 500 MG TAB PO SCH ×3 (09:57→21:06)
[2021-04-09] MEDS: carBAMazepine 200 MG TAB PO SCH ×2 (09:57→21:06)
[2021-04-09] MEDS: HALOPERIDOL 5 MG TAB PO SCH ×2 (09:58→21:06)
[2021-04-09] MEDS: FAMOTIDINE 20 MG TAB PO SCH (09:58)
[2021-04-09] MEDS: LISINOPRIL 10 MG TAB PO SCH (10:00)
--- NOTE | 2021-04-09 10:39 | Progress Note ---
Subjective Date of service: 04/09/21 Principal diagnosis: schizophrenia Subjective Comment: Per Nurse Note: Pt is received in the dayroom awake and alert but delusional. Pt denies being "Bethanie Tracey" and likes to be called "Jeanne". Out of no where, Mrs. Tracey told another pt "I don't know who the fuck you are". Close monitoring continues. The patient was seen today. She is irritable and avoidant. She's also delusional. The patient tells me to stop calling her Mrs. Kovacs. She says "I keep telling you my name is Jeanne." We are trying to get her better to go home. She replied "I don't care if I don't go home. Lock me up in penitentiary." She then pulled the linen over her head and refused further cooperate. Reason for continued inpatient treatment: The patient continues to have psychosis and easily irritated. Will continue to treat and monitor. REVIEW OF SYSTEMS Could not obtain MENTAL STATUS EXAMINATION could not obtain Assessment and Plan (1) Schizophrenia Current Visit: Yes Status: Acute Treatment Plan Patient admitted for inpatient psychiatric evaluation, medication adjustment and close monitoring The patient's behavior, mood, sleep and appetite will be closely monitored. Patient enrolled in individual and group therapeutic sessions and encouraged to attend. Patient provided with a safe and structured environment. Patient's physical health needs will be addressed by the Hospitalist. Hospitalist Consulted Labs including CBC, CMP, Lipid profile and Hemoglobin A1C levels ordered for baseline reference Valproic 04/08 Social Assessment will be completed and the Band Instrument Maker will work with patient and family to ensure a suitable and safe disposition Medication adjustment will be made as clinically indicated Increase Haldol 10mg po BID Usual Wellness Yazdanism/Preservation: - Start Trazodone 50 mg po QHS & 50 mg po QHS PRN between 10 PM & 2 AM for insomnia - Start Melatonin 5 mg po QHS to promote circadian rhythm The patient agreed on the treatment plan, understood the risk, benefit, alternative treatment, potential consequence of no treatment, and gave informed consent. Estimated days: 4 Post hospital care: primary care provider, psychiatric provider Case staffed with Dr. Naranjo Medications and Allergies Allergies Allergy/AdvReac Type Severity Reaction Status Date / Time No Known Drug Allergies Allergy Unknown Verified 03/05/21 02:54 Home Medications Medication Instructions Recorded Confirmed Last Taken Type Benztropine [Cogentin] 1 mg PO DAILY 03/05/21 04/05/21 Unknown History carBAMazepine [TEGretol] 200 mg PO BID 03/05/21 04/05/21 Unknown History lisinopriL [Lisinopril] 10 mg PO DAILY 03/05/21 04/05/[address] [Depakote Dr] 500 mg PO BID #60 03/13/21 04/05/21 Unknown Rx Melatonin [Melatonin 5MG TAB] 5 mg PO QHS PRN #30 tablet 03/13/21 04/05/21 Unknown Rx haloperidoL [Haldol] 5 mg PO BID #60 tablet 03/13/21 04/05/21 Unknown Rx hydrALAZINE [Apresoline TAB] 10 mg PO Q6H PRN #120 tablet 03/13/21 04/05/21 Unknown Rx traZODone [Desyrel] 50 mg PO QHS #30 tablet 03/13/21 04/05/21 Unknown Rx Active Meds: Active Medications Benztropine Mesylate (Benztropine 1 Mg Tab) 1 mg PO DAILY [facility] Last Admin: 04/09/21 09:57 Dose: 1 mg Documented by: Carbamazepine (Carbamazepine 200 Mg Tab) 200 mg PO BID [facility] Last Admin: 04/09/21 09:57 Dose: 200 mg Documented by: Divalproex Sodium (Divalproex Dr 500 Mg Tab) 500 mg PO TID [facility] Last Admin: 04/09/21 09:57 Dose: 500 mg Documented by: Enoxaparin Sodium (Enoxaparin 40 Mg/0.4 Ml Inj) 40 mg SUB-Q QDAY@2200 [facility]; Protocol Last Admin: 04/08/21 21:49 Dose: Not Given Documented by: Famotidine (Famotidine 20 Mg Tab) 20 mg PO QDAY [facility] Last Admin: 04/09/21 09:58 Dose: 20 mg Documented by: Haloperidol (Haloperidol 5 Mg Tab) 5 mg PO TID [facility] Last Admin: 04/09/21 09:58 Dose: 5 mg Documented by: Hydralazine HCl (Hydralazine 10 Mg Tab) 10 mg PO Q6H PRN PRN Reason: Hypertension Lisinopril (Lisinopril 10 Mg Tab) 20 mg PO DAILY [facility] Last Admin: 04/09/21 10:00 Dose: 20 mg Documented by: Melatonin (Melatonin 5 Mg Tab) 5 mg PO QHS PRN PRN Reason: Sleep Trazodone HCl (Trazodone 50 Mg Tab) 50 mg PO QHS [facility] Last Admin: 04/08/21 21:43 Dose: 50 mg Documented by: Results - Results Labs/Vitals: Laboratory Last Values WBC 4.4 K/mm3 (4.5-11.0) L 04/05/21 05:05 RBC 3.98 M/mm3 (3.65-5.03) 04/05/21 05:05 Hgb 12.4 gm/dl (10.1-14.3) 04/05/21 05:05 Hct 35.1 % (30.3-42.9) 04/05/21 05:05 MCV 88 fl (79-97) 04/05/21 05:05 MCH 31 pg (28-32) 04/05/21 05:05 MCHC 35 % (30-34) H 04/05/21 05:05 RDW 13.8 % (13.2-15.2) 04/05/21 05:05 Plt Count 201 K/mm3 (140-440) 04/05/21 05:05 Lymph % (Auto) 32.0 % (13.4-35.0) 04/05/21 05:05 [place] % (Auto) 7.3 % (0.0-7.3) 04/05/21 05:05 Eos % (Auto) 3.3 % (0.0-4.3) 04/05/21 05:05 Baso % (Auto) 0.7 % (0.0-1.8) 04/05/21 05:05 Lymph # (Auto) 1.4 K/mm3 (1.2-5.4) 04/05/21 05:05 [place] # (Auto) 0.3 K/mm3 (0.0-0.8) 04/05/21 05:05 Eos # (Auto) 0.1 K/mm3 (0.0-0.4) 04/05/21 05:05 Baso # (Auto) 0.0 K/mm3 (0.0-0.1) 04/05/21 05:05 Seg Neutrophils % 56.7 % (40.0-70.0) 04/05/21 05:05 Seg Neutrophils # 2.5 K/mm3 (1.8-7.7) 04/05/21 05:05 Sodium 143 mmol/L (137-145) 04/05/21 05:05 Potassium 3.7 mmol/L (3.6-5.0) 04/05/21 05:05 Chloride 109.8 mmol/L (98-107) H 04/05/21 05:05 Carbon Dioxide 24 mmol/L (22-30) 04/05/21 05:05 Anion Gap 13 mmol/L 04/05/21 05:05 BUN 23 mg/dL (7-17) H 04/05/21 05:05 Creatinine 0.9 mg/dL (0.6-1.2) 04/05/21 05:05 Estimated GFR > 60 ml/min 04/05/21 05:05 BUN/Creatinine Ratio 26 % 04/05/21 05:05 Glucose 102 mg/dL (65-100) H 04/05/21 05:05 POC Glucose 71 mg/dL (70-105) 04/06/21 06:17 Hemoglobin A1c 5.1 % (4-6) 04/05/21 05:05 Calcium 8.8 mg/dL (8.4-10.2) 04/05/21 05:05 Total Bilirubin 0.30 mg/dL (0.1-1.2) 04/05/21 05:05 AST 11 units/L (5-40) 04/05/21 05:05 ALT < 5 units/L (7-56) L 04/05/21 05:05 Alkaline Phosphatase 51 units/L (35-129) 04/05/21 05:05 Total Protein 6.1 g/dL (6.3-8.2) L 04/05/21 05:05 Albumin 3.2 g/dL (3.9-5) L 04/05/21 05:05 Albumin/Globulin Ratio 1.1 % 04/05/21 05:05 Triglycerides 79 mg/dL (2-149) 04/05/21 05:05 Cholesterol 232 mg/dL (50-199) H 04/05/21 05:05 LDL Cholesterol Direct 162 mg/dL (50-130) H 04/05/21 05:05 HDL Cholesterol 48 mg/dL (40-59) 04/05/21 05:05 Cholesterol/HDL Ratio 4.83 % 04/05/21 05:05 TSH 0.324 mlU/mL (0.270-4.200) 04/05/21 05:05 Valproic Acid 109.1 ug/mL (50-100) H 04/09/21 06:04 Last Vital Signs Temp 98.7 F 04/08/21 20:45 Pulse 83 04/09/21 10:00 Resp 18 04/08/21 20:45 BP 117/76 04/09/21 10:00 Pulse Ox 99 04/08/21 07:37
[2021-04-09] MEDS: traZODone 50 MG TAB PO SCH (21:06)
[2021-04-09] MEDS: ENOXAPARIN 40 MG/0.4 ML INJ SUB-Q SCH (21:07)
--- NOTE | 2021-04-10 09:25 | Progress Note ---
Subjective Date of service: 04/10/21 Principal diagnosis: schizophrenia Subjective Comment: The patient was seen today. She is lying down in bed asleep. She easily arouses. She is more cooperative today. She says good morning to me. I called her by "Mrs. Kovacs" and she did not reference "Cinderella." She tells me that she is tired and didn't sleep well last night. When asking how she felt, the patient says "I'm good. I'm just ready to go home." Nursing staff reports psychosis, and easily irritable. Reason for continued inpatient treatment: The patient continues to have psychosis and easily irritated. Will continue to treat and monitor. REVIEW OF SYSTEMS Could not obtain MENTAL STATUS EXAMINATION could not obtain Assessment and Plan (1) Schizophrenia Current Visit: Yes Status: Acute Treatment Plan Patient admitted for inpatient psychiatric evaluation, medication adjustment and close monitoring The patient's behavior, mood, sleep and appetite will be closely monitored. Patient enrolled in individual and group therapeutic sessions and encouraged to attend. Patient provided with a safe and structured environment. Patient's physical health needs will be addressed by the Hospitalist. Hospitalist Consulted Labs including CBC, CMP, Lipid profile and Hemoglobin A1C levels ordered for baseline reference Valproic 04/08 Social Assessment will be completed and the Mold Cleaning And Storage Supervisor will work with patient and family to ensure a suitable and safe disposition Medication adjustment will be made as clinically indicated Increase Haldol 10mg po BID yesterday No changes today Usual Wellness Taoism/Preservation: - Start Trazodone 50 mg po QHS & 50 mg po QHS PRN between 10 PM & 2 AM for insomnia - Start Melatonin 5 mg po QHS to promote circadian rhythm The patient agreed on the treatment plan, understood the risk, benefit, alternative treatment, potential consequence of no treatment, and gave informed consent. Estimated days: 4 Post hospital care: primary care provider, psychiatric provider Case staffed with Dr. Naranjo Medications and Allergies Allergies Allergy/AdvReac Type Severity Reaction Status Date / Time No Known Drug Allergies Allergy Unknown Verified 03/05/21 02:54 Home Medications Medication Instructions Recorded Confirmed Last Taken Type Benztropine [Cogentin] 1 mg PO DAILY 03/05/21 04/05/21 Unknown History carBAMazepine [TEGretol] 200 mg PO BID 03/05/21 04/05/21 Unknown History lisinopriL [Lisinopril] 10 mg PO DAILY 03/05/21 04/05/[address] [Depakote Dr] 500 mg PO BID #60 03/13/21 04/05/21 Unknown Rx Melatonin [Melatonin 5MG TAB] 5 mg PO QHS PRN #30 tablet 03/13/21 04/05/21 Unknown Rx haloperidoL [Haldol] 5 mg PO BID #60 tablet 03/13/21 04/05/21 Unknown Rx hydrALAZINE [Apresoline TAB] 10 mg PO Q6H PRN #120 tablet 03/13/21 04/05/21 Unknown Rx traZODone [Desyrel] 50 mg PO QHS #30 tablet 03/13/21 04/05/21 Unknown Rx Active Meds: Active Medications Benztropine Mesylate (Benztropine 1 Mg Tab) 1 mg PO DAILY [facility] Last Admin: 04/09/21 09:57 Dose: 1 mg Documented by: Carbamazepine (Carbamazepine 200 Mg Tab) 200 mg PO BID [facility] Last Admin: 04/09/21 21:06 Dose: 200 mg Documented by: Divalproex Sodium (Divalproex Dr 500 Mg Tab) 500 mg PO TID [facility] Last Admin: 04/09/21 21:06 Dose: 500 mg Documented by: Enoxaparin Sodium (Enoxaparin 40 Mg/0.4 Ml Inj) 40 mg SUB-Q QDAY@2200 [facility]; Protocol Last Admin: 04/09/21 21:07 Dose: Not Given Documented by: Famotidine (Famotidine 20 Mg Tab) 20 mg PO QDAY [facility] Last Admin: 04/09/21 09:58 Dose: 20 mg Documented by: Haloperidol (Haloperidol 5 Mg Tab) 10 mg PO BID [facility] Last Admin: 04/09/21 21:06 Dose: 10 mg Documented by: Hydralazine HCl (Hydralazine 10 Mg Tab) 10 mg PO Q6H PRN PRN Reason: Hypertension Lisinopril (Lisinopril 10 Mg Tab) 20 mg PO DAILY [facility] Last Admin: 04/09/21 10:00 Dose: 20 mg Documented by: Melatonin (Melatonin 5 Mg Tab) 5 mg PO QHS PRN PRN Reason: Sleep Trazodone HCl (Trazodone 50 Mg Tab) 50 mg PO QHS [facility] Last Admin: 04/09/21 21:06 Dose: 50 mg Documented by: Results - Results Labs/Vitals: Laboratory Last Values WBC 4.4 K/mm3 (4.5-11.0) L 04/05/21 05:05 RBC 3.98 M/mm3 (3.65-5.03) 04/05/21 05:05 Hgb 12.4 gm/dl (10.1-14.3) 04/05/21 05:05 Hct 35.1 % (30.3-42.9) 04/05/21 05:05 MCV 88 fl (79-97) 04/05/21 05:05 MCH 31 pg (28-32) 04/05/21 05:05 MCHC 35 % (30-34) H 04/05/21 05:05 RDW 13.8 % (13.2-15.2) 04/05/21 05:05 Plt Count 201 K/mm3 (140-440) 04/05/21 05:05 Lymph % (Auto) 32.0 % (13.4-35.0) 04/05/21 05:05 [place] % (Auto) 7.3 % (0.0-7.3) 04/05/21 05:05 Eos % (Auto) 3.3 % (0.0-4.3) 04/05/21 05:05 Baso % (Auto) 0.7 % (0.0-1.8) 04/05/21 05:05 Lymph # (Auto) 1.4 K/mm3 (1.2-5.4) 04/05/21 05:05 [place] # (Auto) 0.3 K/mm3 (0.0-0.8) 04/05/21 05:05 Eos # (Auto) 0.1 K/mm3 (0.0-0.4) 04/05/21 05:05 Baso # (Auto) 0.0 K/mm3 (0.0-0.1) 04/05/21 05:05 Seg Neutrophils % 56.7 % (40.0-70.0) 04/05/21 05:05 Seg Neutrophils # 2.5 K/mm3 (1.8-7.7) 04/05/21 05:05 Sodium 143 mmol/L (137-145) 04/05/21 05:05 Potassium 3.7 mmol/L (3.6-5.0) 04/05/21 05:05 Chloride 109.8 mmol/L (98-107) H 04/05/21 05:05 Carbon Dioxide 24 mmol/L (22-30) 04/05/21 05:05 Anion Gap 13 mmol/L 04/05/21 05:05 BUN 23 mg/dL (7-17) H 04/05/21 05:05 Creatinine 0.9 mg/dL (0.6-1.2) 04/05/21 05:05 Estimated GFR > 60 ml/min 04/05/21 05:05 BUN/Creatinine Ratio 26 % 04/05/21 05:05 Glucose 102 mg/dL (65-100) H 04/05/21 05:05 POC Glucose 71 mg/dL (70-105) 04/06/21 06:17 Hemoglobin A1c 5.1 % (4-6) 04/05/21 05:05 Calcium 8.8 mg/dL (8.4-10.2) 04/05/21 05:05 Total Bilirubin 0.30 mg/dL (0.1-1.2) 04/05/21 05:05 AST 11 units/L (5-40) 04/05/21 05:05 ALT < 5 units/L (7-56) L 04/05/21 05:05 Alkaline Phosphatase 51 units/L (35-129) 04/05/21 05:05 Total Protein 6.1 g/dL (6.3-8.2) L 04/05/21 05:05 Albumin 3.2 g/dL (3.9-5) L 04/05/21 05:05 Albumin/Globulin Ratio 1.1 % 04/05/21 05:05 Triglycerides 79 mg/dL (2-149) 04/05/21 05:05 Cholesterol 232 mg/dL (50-199) H 04/05/21 05:05 LDL Cholesterol Direct 162 mg/dL (50-130) H 04/05/21 05:05 HDL Cholesterol 48 mg/dL (40-59) 04/05/21 05:05 Cholesterol/HDL Ratio 4.83 % 04/05/21 05:05 TSH 0.324 mlU/mL (0.270-4.200) 04/05/21 05:05 Valproic Acid 109.1 ug/mL (50-100) H 04/09/21 06:04 Last Vital Signs Temp 98.4 F 04/09/21 19:42 Pulse 89 04/09/21 19:42 Resp 16 04/09/21 19:42 BP 144/97 04/09/21 19:42 Pulse Ox 97 04/09/21 19:42
[2021-04-10] MEDS: carBAMazepine 200 MG TAB PO SCH ×2 (10:05→21:12)
[2021-04-10] MEDS: FAMOTIDINE 20 MG TAB PO SCH (10:06)
[2021-04-10] MEDS: LISINOPRIL 10 MG TAB PO SCH (10:06)
[2021-04-10] MEDS: DIVALPROEX DR 500 MG TAB PO SCH ×3 (10:06→21:12)
[2021-04-10] MEDS: HALOPERIDOL 5 MG TAB PO SCH ×2 (10:07→21:14)
[2021-04-10] MEDS: BENZTROPINE 1 MG TAB PO SCH (10:07)
[2021-04-10] MEDS: traZODone 50 MG TAB PO SCH (21:13)
[2021-04-10] MEDS: ENOXAPARIN 40 MG/0.4 ML INJ SUB-Q SCH ×2 (21:13→23:27)
[2021-04-11] MEDS ORDERED: CETIRIZINE 10 MG TAB PO SCH (10:00)
[2021-04-11] MEDS ORDERED: PANTOPRAZOLE 20 MG TAB PO SCH (10:00)
[2021-04-11] MEDS ORDERED: DULoxetine 30 MG CAP PO SCH (10:00)
[2021-04-11] MEDS: HALOPERIDOL 5 MG TAB PO SCH ×2 (11:13→21:11)
[2021-04-11] MEDS: BENZTROPINE 1 MG TAB PO SCH (11:13)
[2021-04-11] MEDS: FAMOTIDINE 20 MG TAB PO SCH (11:13)
[2021-04-11] MEDS: DIVALPROEX DR 500 MG TAB PO SCH ×3 (11:14→21:10)
[2021-04-11] MEDS: LISINOPRIL 10 MG TAB PO SCH (11:15)
[2021-04-11] MEDS ORDERED: ALBUTEROL 2.5 MG/3 ML NEBU IH PRN (11:35)
[2021-04-11] MEDS ORDERED: TIOTROPIUM 18 MCG CAP INHALATION IH SCH (11:40)
[2021-04-11] MEDS: carBAMazepine 200 MG TAB PO SCH ×2 (11:53→21:11)
--- NOTE | 2021-04-11 13:41 | Progress Note ---
Subjective Date of service: 04/11/21 Principal diagnosis: schizophrenia Subjective Comment: The patient was seen eating breakfast. Patient is easily angered. The patient became irate when a staff member called her name stating " I'm not Bethanie Tracey , I am Cinderella" she states mood as " very good." She denies any current suicidal/homicidal ideation and denies hallucinations. No changes made today. Reason for continued inpatient treatment: The patient continues to have psychosis and easily irritated. Will continue to treat and monitor. REVIEW OF SYSTEMS Could not obtain MENTAL STATUS EXAMINATION could not obtain Assessment and Plan (1) Schizophrenia Current Visit: Yes Status: Acute Treatment Plan Patient admitted for inpatient psychiatric evaluation, medication adjustment and close monitoring The patient's behavior, mood, sleep and appetite will be closely monitored. Patient enrolled in individual and group therapeutic sessions and encouraged to attend. Patient provided with a safe and structured environment. Patient's physical health needs will be addressed by the Hospitalist. Hospitalist Consulted Labs including CBC, CMP, Lipid profile and Hemoglobin A1C levels ordered for baseline reference Valproic 04/08 Social Assessment will be completed and the Skylights Assembler will work with patient and family to ensure a suitable and safe disposition Medication adjustment will be made as clinically indicated Increase Haldol 10mg po BID yesterday No changes today Usual Wellness Spiritism/Preservation: - Start Trazodone 50 mg po QHS & 50 mg po QHS PRN between 10 PM & 2 AM for insomnia - Start Melatonin 5 mg po QHS to promote circadian rhythm The patient agreed on the treatment plan, understood the risk, benefit, alternative treatment, potential consequence of no treatment, and gave informed consent. Estimated days: 4 Post hospital care: primary care provider, psychiatric provider Case staffed with Dr. Naranjo Medications and Allergies Allergies Allergy/AdvReac Type Severity Reaction Status Date / Time No Known Drug Allergies Allergy Unknown Verified 03/05/21 02:54 Home Medications Medication Instructions Recorded Confirmed Last Taken Type Benztropine [Cogentin] 1 mg PO DAILY 03/05/21 04/05/21 Unknown History carBAMazepine [TEGretol] 200 mg PO BID 03/05/21 04/05/21 Unknown History lisinopriL [Lisinopril] 10 mg PO DAILY 03/05/21 04/05/21 Unknown History Divalproex [[place]] 500 mg PO BID #60 03/13/21 04/05/21 Unknown Rx Melatonin [Melatonin 5MG TAB] 5 mg PO QHS PRN #30 tablet 03/13/21 04/05/21 Unknown Rx haloperidoL [Haldol] 5 mg PO BID #60 tablet 03/13/21 04/05/21 Unknown Rx hydrALAZINE [Apresoline TAB] 10 mg PO Q6H PRN #120 tablet 03/13/21 04/05/21 Unknown Rx traZODone [Desyrel] 50 mg PO QHS #30 tablet 03/13/21 04/05/21 Unknown Rx Active Meds: Active Medications Albuterol (Albuterol 2.5 Mg/3 Ml Nebu) 2.5 mg IH Q4HRT PRN PRN Reason: Wheezing Benztropine Mesylate (Benztropine 1 Mg Tab) 1 mg PO DAILY [facility] Last Admin: 04/11/21 11:13 Dose: 1 mg Documented by: Carbamazepine (Carbamazepine 200 Mg Tab) 200 mg PO BID [facility] Last Admin: 04/10/21 21:12 Dose: 200 mg Documented by: Cetirizine HCl (Cetirizine 10 Mg Tab) 10 mg PO DAILY [facility] Divalproex Sodium (Divalproex Dr 500 Mg Tab) 500 mg PO TID [facility] Last Admin: 04/11/21 11:14 Dose: 500 mg Documented by: Duloxetine HCl (Duloxetine 30 Mg Cap) 60 mg PO QDAY [facility] Enoxaparin Sodium (Enoxaparin 40 Mg/0.4 Ml Inj) 40 mg SUB-Q QDAY@2200 [facility]; Protocol Last Admin: 04/10/21 23:27 Dose: Not Given Documented by: Famotidine (Famotidine 20 Mg Tab) 20 mg PO QDAY [facility] Last Admin: 04/11/21 11:13 Dose: 20 mg Documented by: Haloperidol (Haloperidol 5 Mg Tab) 10 mg PO BID [facility] Last Admin: 04/11/21 11:13 Dose: 10 mg Documented by: Hydralazine HCl (Hydralazine 10 Mg Tab) 10 mg PO Q6H PRN PRN Reason: Hypertension Lisinopril (Lisinopril 10 Mg Tab) 20 mg PO DAILY [facility] Last Admin: 04/11/21 11:15 Dose: 20 mg Documented by: Melatonin (Melatonin 5 Mg Tab) 5 mg PO QHS PRN PRN Reason: Sleep Pantoprazole Sodium (Pantoprazole 20 Mg Tab) 20 mg PO QDAY [facility] Tiotropium [place] (Tiotropium 18 Mcg Cap Inhalation) 1 puff IH Q24HRT [facility] Torsemide (Torsemide 10 Mg Tab) 20 mg PO HS [facility] Trazodone HCl (Trazodone 50 Mg Tab) 50 mg PO QHS [facility] Last Admin: 04/10/21 21:13 Dose: 50 mg Documented by: Results - Results Labs/Vitals: Laboratory Last Values WBC 4.4 K/mm3 (4.5-11.0) L 04/05/21 05:05 RBC 3.98 M/mm3 (3.65-5.03) 04/05/21 05:05 Hgb 12.4 gm/dl (10.1-14.3) 04/05/21 05:05 Hct 35.1 % (30.3-42.9) 04/05/21 05:05 MCV 88 fl (79-97) 04/05/21 05:05 MCH 31 pg (28-32) 04/05/21 05:05 MCHC 35 % (30-34) H 04/05/21 05:05 RDW 13.8 % (13.2-15.2) 04/05/21 05:05 Plt Count 201 K/mm3 (140-440) 04/05/21 05:05 Lymph % (Auto) 32.0 % (13.4-35.0) 04/05/21 05:05 [place] % (Auto) 7.3 % (0.0-7.3) 04/05/21 05:05 Eos % (Auto) 3.3 % (0.0-4.3) 04/05/21 05:05 Baso % (Auto) 0.7 % (0.0-1.8) 04/05/21 05:05 Lymph # (Auto) 1.4 K/mm3 (1.2-5.4) 04/05/21 05:05 [place] # (Auto) 0.3 K/mm3 (0.0-0.8) 04/05/21 05:05 Eos # (Auto) 0.1 K/mm3 (0.0-0.4) 04/05/21 05:05 Baso # (Auto) 0.0 K/mm3 (0.0-0.1) 04/05/21 05:05 Seg Neutrophils % 56.7 % (40.0-70.0) 04/05/21 05:05 Seg Neutrophils # 2.5 K/mm3 (1.8-7.7) 04/05/21 05:05 Sodium 143 mmol/L (137-145) 04/05/21 05:05 Potassium 3.7 mmol/L (3.6-5.0) 04/05/21 05:05 Chloride 109.8 mmol/L (98-107) H 04/05/21 05:05 Carbon Dioxide 24 mmol/L (22-30) 04/05/21 05:05 Anion Gap 13 mmol/L 04/05/21 05:05 BUN 23 mg/dL (7-17) H 04/05/21 05:05 Creatinine 0.9 mg/dL (0.6-1.2) 04/05/21 05:05 Estimated GFR > 60 ml/min 04/05/21 05:05 BUN/Creatinine Ratio 26 % 04/05/21 05:05 Glucose 102 mg/dL (65-100) H 04/05/21 05:05 POC Glucose 71 mg/dL (70-105) 04/06/21 06:17 Hemoglobin A1c 5.1 % (4-6) 04/05/21 05:05 Calcium 8.8 mg/dL (8.4-10.2) 04/05/21 05:05 Total Bilirubin 0.30 mg/dL (0.1-1.2) 04/05/21 05:05 AST 11 units/L (5-40) 04/05/21 05:05 ALT < 5 units/L (7-56) L 04/05/21 05:05 Alkaline Phosphatase 51 units/L (35-129) 04/05/21 05:05 Total Protein 6.1 g/dL (6.3-8.2) L 04/05/21 05:05 Albumin 3.2 g/dL (3.9-5) L 04/05/21 05:05 Albumin/Globulin Ratio 1.1 % 04/05/21 05:05 Triglycerides 79 mg/dL (2-149) 04/05/21 05:05 Cholesterol 232 mg/dL (50-199) H 04/05/21 05:05 LDL Cholesterol Direct 162 mg/dL (50-130) H 04/05/21 05:05 HDL Cholesterol 48 mg/dL (40-59) 04/05/21 05:05 Cholesterol/HDL Ratio 4.83 % 04/05/21 05:05 TSH 0.324 mlU/mL (0.270-4.200) 04/05/21 05:05 Valproic Acid 109.1 ug/mL (50-100) H 04/09/21 06:04 Last Vital Signs Temp 98.7 F 04/11/21 07:34 Pulse 92 H 04/11/21 11:15 Resp 16 04/11/21 07:34 BP 137/84 04/11/21 11:15 Pulse Ox 97 04/11/21 07:34
[2021-04-11] MEDS: traZODone 50 MG TAB PO SCH (21:11)
[2021-04-11] MEDS: ENOXAPARIN 40 MG/0.4 ML INJ SUB-Q SCH (21:11)
[2021-04-11] MEDS ORDERED: TORSEMIDE 10 MG TAB PO SCH (22:00)
--- NOTE | 2021-04-12 08:52 | Progress Note ---
Subjective Date of service: 04/12/21 Principal diagnosis: schizophrenia Subjective Comment: 04/11/2021: The patient was seen eating breakfast. Patient is easily angered. The patient became irate when a staff member called her name stating " I'm not Bethanie Tracey , I am Cinderella" she states mood as " very good." She denies any current suicidal/homicidal ideation and denies hallucinations. No changes made today. 04/12/2021: The patient was seen in the activity room, she was calm but easily irritated. The patient is isolative. she states mood as good. She denies any current suicidal/homicidal ideation and denies hallucinations. No changes made today. Reason for continued inpatient treatment: Placement- The patient continues to be easily irritated. REVIEW OF SYSTEMS Could not obtain MENTAL STATUS EXAMINATION could not obtain Assessment and Plan (1) Schizophrenia Current Visit: Yes Status: Acute Treatment Plan Patient admitted for inpatient psychiatric evaluation, medication adjustment and close monitoring The patient's behavior, mood, sleep and appetite will be closely monitored. Patient enrolled in individual and group therapeutic sessions and encouraged to attend. Patient provided with a safe and structured environment. Patient's physical health needs will be addressed by the Hospitalist. Hospitalist Consulted Labs including CBC, CMP, Lipid profile and Hemoglobin A1C levels ordered for baseline reference Valproic 04/08 Social Assessment will be completed and the Profile Grinder will work with patient and family to ensure a suitable and safe disposition Medication adjustment will be made as clinically indicated Increase Haldol 10mg po BID yesterday No changes today Usual Wellness Congregation/Preservation: - Start Trazodone 50 mg po QHS & 50 mg po QHS PRN between 10 PM & 2 AM for insomnia - Start Melatonin 5 mg po QHS to promote circadian rhythm The patient agreed on the treatment plan, understood the risk, benefit, alternative treatment, potential consequence of no treatment, and gave informed consent. Estimated days: 4 Post hospital care: primary care provider, psychiatric provider Case staffed with Dr. Naranjo Medications and Allergies Allergies Medications and Allergies Allergies Allergy/AdvReac Type Severity Reaction Status Date / Time No Known Drug Allergies Allergy Unknown Verified 03/05/21 02:54 Home Medications Medication Instructions Recorded Confirmed Last Taken Type Benztropine [Cogentin] 1 mg PO DAILY 03/05/21 04/05/21 Unknown History carBAMazepine [TEGretol] 200 mg PO BID 03/05/21 04/05/21 Unknown History lisinopriL [Lisinopril] 10 mg PO DAILY 03/05/21 04/05/[address] [Depakote Dr] 500 mg PO BID #60 03/13/21 04/05/21 Unknown Rx Melatonin [Melatonin 5MG TAB] 5 mg PO QHS PRN #30 tablet 03/13/21 04/05/21 Unknown Rx haloperidoL [Haldol] 5 mg PO BID #60 tablet 03/13/21 04/05/21 Unknown Rx hydrALAZINE [Apresoline TAB] 10 mg PO Q6H PRN #120 tablet 03/13/21 04/05/21 Unknown Rx traZODone [Desyrel] 50 mg PO QHS #30 tablet 03/13/21 04/05/21 Unknown Rx Active Meds: Active Medications Benztropine Mesylate (Benztropine 1 Mg Tab) 1 mg PO DAILY [facility] Last Admin: 04/11/21 11:13 Dose: 1 mg Documented by: Carbamazepine (Carbamazepine 200 Mg Tab) 200 mg PO BID [facility] Last Admin: 04/11/21 21:11 Dose: 200 mg Documented by: Divalproex Sodium (Divalproex Dr 500 Mg Tab) 500 mg PO TID [facility] Last Admin: 04/11/21 21:10 Dose: 500 mg Documented by: Enoxaparin Sodium (Enoxaparin 40 Mg/0.4 Ml Inj) 40 mg SUB-Q QDAY@2200 [facility]; Protocol Last Admin: 04/11/21 21:11 Dose: Not Given Documented by: Famotidine (Famotidine 20 Mg Tab) 20 mg PO QDAY [facility] Last Admin: 04/11/21 11:13 Dose: 20 mg Documented by: Haloperidol (Haloperidol 5 Mg Tab) 10 mg PO BID [facility] Last Admin: 04/11/21 21:11 Dose: 10 mg Documented by: Hydralazine HCl (Hydralazine 10 Mg Tab) 10 mg PO Q6H PRN PRN Reason: Hypertension Lisinopril (Lisinopril 10 Mg Tab) 20 mg PO DAILY [facility] Last Admin: 04/11/21 11:15 Dose: 20 mg Documented by: Melatonin (Melatonin 5 Mg Tab) 5 mg PO QHS PRN PRN Reason: Sleep Trazodone HCl (Trazodone 50 Mg Tab) 50 mg PO QHS [facility] Last Admin: 04/11/21 21:11 Dose: 50 mg Documented by: Results - Results Labs/Vitals: Laboratory Last Values WBC 4.4 K/mm3 (4.5-11.0) L 04/05/21 05:05 RBC 3.98 M/mm3 (3.65-5.03) 04/05/21 05:05 Hgb 12.4 gm/dl (10.1-14.3) 04/05/21 05:05 Hct 35.1 % (30.3-42.9) 04/05/21 05:05 MCV 88 fl (79-97) 04/05/21 05:05 MCH 31 pg (28-32) 04/05/21 05:05 MCHC 35 % (30-34) H 04/05/21 05:05 RDW 13.8 % (13.2-15.2) 04/05/21 05:05 Plt Count 201 K/mm3 (140-440) 04/05/21 05:05 Lymph % (Auto) 32.0 % (13.4-35.0) 04/05/21 05:05 [place] % (Auto) 7.3 % (0.0-7.3) 04/05/21 05:05 Eos % (Auto) 3.3 % (0.0-4.3) 04/05/21 05:05 Baso % (Auto) 0.7 % (0.0-1.8) 04/05/21 05:05 Lymph # (Auto) 1.4 K/mm3 (1.2-5.4) 04/05/21 05:05 [place] # (Auto) 0.3 K/mm3 (0.0-0.8) 04/05/21 05:05 Eos # (Auto) 0.1 K/mm3 (0.0-0.4) 04/05/21 05:05 Baso # (Auto) 0.0 K/mm3 (0.0-0.1) 04/05/21 05:05 Seg Neutrophils % 56.7 % (40.0-70.0) 04/05/21 05:05 Seg Neutrophils # 2.5 K/mm3 (1.8-7.7) 04/05/21 05:05 Sodium 143 mmol/L (137-145) 04/05/21 05:05 Potassium 3.7 mmol/L (3.6-5.0) 04/05/21 05:05 Chloride 109.8 mmol/L (98-107) H 04/05/21 05:05 Carbon Dioxide 24 mmol/L (22-30) 04/05/21 05:05 Anion Gap 13 mmol/L 04/05/21 05:05 BUN 23 mg/dL (7-17) H 04/05/21 05:05 Creatinine 0.9 mg/dL (0.6-1.2) 04/05/21 05:05 Estimated GFR > 60 ml/min 04/05/21 05:05 BUN/Creatinine Ratio 26 % 04/05/21 05:05 Glucose 102 mg/dL (65-100) H 04/05/21 05:05 POC Glucose 71 mg/dL (70-105) 04/06/21 06:17 Hemoglobin A1c 5.1 % (4-6) 04/05/21 05:05 Calcium 8.8 mg/dL (8.4-10.2) 04/05/21 05:05 Total Bilirubin 0.30 mg/dL (0.1-1.2) 04/05/21 05:05 AST 11 units/L (5-40) 04/05/21 05:05 ALT < 5 units/L (7-56) L 04/05/21 05:05 Alkaline Phosphatase 51 units/L (35-129) 04/05/21 05:05 Total Protein 6.1 g/dL (6.3-8.2) L 04/05/21 05:05 Albumin 3.2 g/dL (3.9-5) L 04/05/21 05:05 Albumin/Globulin Ratio 1.1 % 04/05/21 05:05 Triglycerides 79 mg/dL (2-149) 04/05/21 05:05 Cholesterol 232 mg/dL (50-199) H 04/05/21 05:05 LDL Cholesterol Direct 162 mg/dL (50-130) H 04/05/21 05:05 HDL Cholesterol 48 mg/dL (40-59) 04/05/21 05:05 Cholesterol/HDL Ratio 4.83 % 04/05/21 05:05 TSH 0.324 mlU/mL (0.270-4.200) 04/05/21 05:05 Valproic Acid 109.1 ug/mL (50-100) H 04/09/21 06:04 Last Vital Signs Temp 97.6 F 04/11/21 22:00 Pulse 82 04/11/21 22:00 Resp 18 04/11/21 22:00 BP 153/84 04/11/21 22:00 Pulse Ox 97 04/11/21 22:00
[2021-04-12] MEDS: BENZTROPINE 1 MG TAB PO SCH (10:08)
[2021-04-12] MEDS: DIVALPROEX DR 500 MG TAB PO SCH ×3 (10:08→20:27)
[2021-04-12] MEDS: LISINOPRIL 10 MG TAB PO SCH (10:08)
[2021-04-12] MEDS: FAMOTIDINE 20 MG TAB PO SCH (10:08)
[2021-04-12] MEDS: carBAMazepine 200 MG TAB PO SCH ×2 (10:08→21:37)
[2021-04-12] MEDS: HALOPERIDOL 5 MG TAB PO SCH ×2 (10:08→21:37)
[2021-04-12] MEDS: traZODone 50 MG TAB PO SCH (21:37)
[2021-04-12] MEDS: ENOXAPARIN 40 MG/0.4 ML INJ SUB-Q SCH (21:47)
--- NOTE | 2021-04-13 08:45 | Progress Note ---
Subjective Date of service: 04/13/21 Principal diagnosis: schizophrenia Subjective Comment: 04/11/2021: The patient was seen eating breakfast. Patient is easily angered. The patient became irate when a staff member called her name stating " I'm not Bethanie Tracey , I am Cinderella" she states mood as " very good." She denies any current suicidal/homicidal ideation and denies hallucinations. No changes made today. 04/12/2021: The patient was seen in the activity room, she was calm but easily irritated. The patient is isolative. she states mood as good. She denies any current suicidal/homicidal ideation and denies hallucinations. No changes made today. 04/13/2021: The patient is seen eating breakfast. She presents with evasive eye contact and flat affect. She states she is doing well and mood as fine. Reason for continued inpatient treatment: Placement- The patient continues to be easily irritated. REVIEW OF SYSTEMS Could not obtain MENTAL STATUS EXAMINATION could not obtain Assessment and Plan (1) Schizophrenia Current Visit: Yes Status: Acute Treatment Plan Patient admitted for inpatient psychiatric evaluation, medication adjustment and close monitoring The patient's behavior, mood, sleep and appetite will be closely monitored. Patient enrolled in individual and group therapeutic sessions and encouraged to attend. Patient provided with a safe and structured environment. Patient's physical health needs will be addressed by the Hospitalist. Hospitalist Consulted Labs including CBC, CMP, Lipid profile and Hemoglobin A1C levels ordered for baseline reference Valproic 04/08 Social Assessment will be completed and the Records Analyst will work with patient and family to ensure a suitable and safe disposition Medication adjustment will be made as clinically indicated Increase Haldol 10mg po BID yesterday No changes today Usual Wellness Caodaism/Preservation: - Start Trazodone 50 mg po QHS & 50 mg po QHS PRN between 10 PM & 2 AM for insomnia - Start Melatonin 5 mg po QHS to promote circadian rhythm The patient agreed on the treatment plan, understood the risk, benefit, alternative treatment, potential consequence of no treatment, and gave informed consent. Estimated days: 4 Post hospital care: primary care provider, psychiatric provider Case staffed with Dr. Naranjo Medications and Allergies Medications and Allergies Allergies Allergy/AdvReac Type Severity Reaction Status Date / Time No Known Drug Allergies Allergy Unknown Verified 03/05/21 02:54 Home Medications Medication Instructions Recorded Confirmed Last Taken Type Benztropine [Cogentin] 1 mg PO DAILY 03/05/21 04/05/21 Unknown History carBAMazepine [TEGretol] 200 mg PO BID 03/05/21 04/05/21 Unknown History lisinopriL [Lisinopril] 10 mg PO DAILY 03/05/21 04/05/[address] [Depakote Dr] 500 mg PO BID #60 03/13/21 04/05/21 Unknown Rx Melatonin [Melatonin 5MG TAB] 5 mg PO QHS PRN #30 tablet 03/13/21 04/05/21 Unknown Rx haloperidoL [Haldol] 5 mg PO BID #60 tablet 03/13/21 04/05/21 Unknown Rx hydrALAZINE [Apresoline TAB] 10 mg PO Q6H PRN #120 tablet 03/13/21 04/05/21 Unknown Rx traZODone [Desyrel] 50 mg PO QHS #30 tablet 03/13/21 04/05/21 Unknown Rx Active Meds: Active Medications Benztropine Mesylate (Benztropine 1 Mg Tab) 1 mg PO DAILY [facility] Last Admin: 04/12/21 10:08 Dose: 1 mg Documented by: Carbamazepine (Carbamazepine 200 Mg Tab) 200 mg PO BID [facility] Last Admin: 04/12/21 21:37 Dose: 200 mg Documented by: Divalproex Sodium (Divalproex Dr 500 Mg Tab) 500 mg PO TID [facility] Last Admin: 04/12/21 20:27 Dose: 500 mg Documented by: Enoxaparin Sodium (Enoxaparin 40 Mg/0.4 Ml Inj) 40 mg SUB-Q QDAY@2200 [facility]; Protocol Last Admin: 04/12/21 21:47 Dose: Not Given Documented by: Famotidine (Famotidine 20 Mg Tab) 20 mg PO QDAY [facility] Last Admin: 04/12/21 10:08 Dose: 20 mg Documented by: Haloperidol (Haloperidol 5 Mg Tab) 10 mg PO BID [facility] Last Admin: 04/12/21 21:37 Dose: 10 mg Documented by: Hydralazine HCl (Hydralazine 10 Mg Tab) 10 mg PO Q6H PRN PRN Reason: Hypertension Lisinopril (Lisinopril 10 Mg Tab) 20 mg PO DAILY [facility] Last Admin: 04/12/21 10:08 Dose: 20 mg Documented by: Melatonin (Melatonin 5 Mg Tab) 5 mg PO QHS PRN PRN Reason: Sleep Trazodone HCl (Trazodone 50 Mg Tab) 50 mg PO QHS [facility] Last Admin: 04/12/21 21:37 Dose: 50 mg Documented by: Results - Results Labs/Vitals: Laboratory Last Values WBC 4.4 K/mm3 (4.5-11.0) L 04/05/21 05:05 RBC 3.98 M/mm3 (3.65-5.03) 04/05/21 05:05 Hgb 12.4 gm/dl (10.1-14.3) 04/05/21 05:05 Hct 35.1 % (30.3-42.9) 04/05/21 05:05 MCV 88 fl (79-97) 04/05/21 05:05 MCH 31 pg (28-32) 04/05/21 05:05 MCHC 35 % (30-34) H 04/05/21 05:05 RDW 13.8 % (13.2-15.2) 04/05/21 05:05 Plt Count 201 K/mm3 (140-440) 04/05/21 05:05 Lymph % (Auto) 32.0 % (13.4-35.0) 04/05/21 05:05 [place] % (Auto) 7.3 % (0.0-7.3) 04/05/21 05:05 Eos % (Auto) 3.3 % (0.0-4.3) 04/05/21 05:05 Baso % (Auto) 0.7 % (0.0-1.8) 04/05/21 05:05 Lymph # (Auto) 1.4 K/mm3 (1.2-5.4) 04/05/21 05:05 [place] # (Auto) 0.3 K/mm3 (0.0-0.8) 04/05/21 05:05 Eos # (Auto) 0.1 K/mm3 (0.0-0.4) 04/05/21 05:05 Baso # (Auto) 0.0 K/mm3 (0.0-0.1) 04/05/21 05:05 Seg Neutrophils % 56.7 % (40.0-70.0) 04/05/21 05:05 Seg Neutrophils # 2.5 K/mm3 (1.8-7.7) 04/05/21 05:05 Sodium 143 mmol/L (137-145) 04/05/21 05:05 Potassium 3.7 mmol/L (3.6-5.0) 04/05/21 05:05 Chloride 109.8 mmol/L (98-107) H 04/05/21 05:05 Carbon Dioxide 24 mmol/L (22-30) 04/05/21 05:05 Anion Gap 13 mmol/L 04/05/21 05:05 BUN 23 mg/dL (7-17) H 04/05/21 05:05 Creatinine 0.9 mg/dL (0.6-1.2) 04/05/21 05:05 Estimated GFR > 60 ml/min 04/05/21 05:05 BUN/Creatinine Ratio 26 % 04/05/21 05:05 Glucose 102 mg/dL (65-100) H 04/05/21 05:05 POC Glucose 71 mg/dL (70-105) 04/06/21 06:17 Hemoglobin A1c 5.1 % (4-6) 04/05/21 05:05 Calcium 8.8 mg/dL (8.4-10.2) 04/05/21 05:05 Total Bilirubin 0.30 mg/dL (0.1-1.2) 04/05/21 05:05 AST 11 units/L (5-40) 04/05/21 05:05 ALT < 5 units/L (7-56) L 04/05/21 05:05 Alkaline Phosphatase 51 units/L (35-129) 04/05/21 05:05 Total Protein 6.1 g/dL (6.3-8.2) L 04/05/21 05:05 Albumin 3.2 g/dL (3.9-5) L 04/05/21 05:05 Albumin/Globulin Ratio 1.1 % 04/05/21 05:05 Triglycerides 79 mg/dL (2-149) 04/05/21 05:05 Cholesterol 232 mg/dL (50-199) H 04/05/21 05:05 LDL Cholesterol Direct 162 mg/dL (50-130) H 04/05/21 05:05 HDL Cholesterol 48 mg/dL (40-59) 04/05/21 05:05 Cholesterol/HDL Ratio 4.83 % 04/05/21 05:05 TSH 0.324 mlU/mL (0.270-4.200) 04/05/21 05:05 Valproic Acid 109.1 ug/mL (50-100) H 04/09/21 06:04 Last Vital Signs Temp 98.6 F 04/13/21 07:40 Pulse 98 H 04/13/21 07:40 Resp 18 04/13/21 07:40 BP 126/90 04/13/21 07:40 Pulse Ox 96 04/13/21 07:40
[2021-04-13] MEDS: BENZTROPINE 1 MG TAB PO SCH (09:56)
[2021-04-13] MEDS: LISINOPRIL 10 MG TAB PO SCH (09:56)
[2021-04-13] MEDS: HALOPERIDOL 5 MG TAB PO SCH ×2 (09:56→21:39)
[2021-04-13] MEDS: FAMOTIDINE 20 MG TAB PO SCH (09:57)
[2021-04-13] MEDS: DIVALPROEX DR 500 MG TAB PO SCH ×3 (09:57→20:07)
[2021-04-13] MEDS: carBAMazepine 200 MG TAB PO SCH ×2 (09:57→21:39)
[2021-04-13] MEDS: traZODone 50 MG TAB PO SCH (21:38)
[2021-04-13] MEDS: ENOXAPARIN 40 MG/0.4 ML INJ SUB-Q SCH (21:38)
--- NOTE | 2021-04-14 08:50 | Progress Note ---
Subjective Date of service: 04/14/21 Principal diagnosis: schizophrenia Subjective Comment: 04/11/2021: The patient was seen eating breakfast. Patient is easily angered. The patient became irate when a staff member called her name stating " I'm not Bethanie Tracey , I am Cinderella" she states mood as " very good." She denies any current suicidal/homicidal ideation and denies hallucinations. No changes made today. 04/12/2021: The patient was seen in the activity room, she was calm but easily irritated. The patient is isolative. she states mood as good. She denies any current suicidal/homicidal ideation and denies hallucinations. No changes made today. 04/13/2021: The patient is seen eating breakfast. She presents with evasive eye contact and flat affect. She states she is doing well and mood as fine. 04/14/2021: The patient seen this morning, she continues to be isolative and easily irritated. She states mood as good. She states sleep and appetite as good. She denies any current suicidal/homicidal ideation and denies hallucinations. Reason for continued inpatient treatment: Placement- The patient continues to be easily irritated. REVIEW OF SYSTEMS Could not obtain MENTAL STATUS EXAMINATION could not obtain Assessment and Plan (1) Schizophrenia Current Visit: Yes Status: Acute Treatment Plan Patient admitted for inpatient psychiatric evaluation, medication adjustment and close monitoring The patient's behavior, mood, sleep and appetite will be closely monitored. Patient enrolled in individual and group therapeutic sessions and encouraged to attend. Patient provided with a safe and structured environment. Patient's physical health needs will be addressed by the Hospitalist. Hospitalist Consulted Labs including CBC, CMP, Lipid profile and Hemoglobin A1C levels ordered for baseline reference Valproic 04/08 Social Assessment will be completed and the Patient Resource Coordinator will work with patient and family to ensure a suitable and safe disposition Medication adjustment will be made as clinically indicated Continue Haldol 10mg po BID No changes today Usual Wellness Baptism/Preservation: - Start Trazodone 50 mg po QHS & 50 mg po QHS PRN between 10 PM & 2 AM for insomnia - Start Melatonin 5 mg po QHS to promote circadian rhythm The patient agreed on the treatment plan, understood the risk, benefit, alternative treatment, potential consequence of no treatment, and gave informed consent. Estimated days: 4 Post hospital care: primary care provider, psychiatric provider Case staffed with Dr. Naranjo Medications and Allergies Medications and Allergies Allergies Medications and Allergies Allergies Allergy/AdvReac Type Severity Reaction Status Date / Time No Known Drug Allergies Allergy Unknown Verified 03/05/21 02:54 Home Medications Medication Instructions Recorded Confirmed Last Taken Type Benztropine [Cogentin] 1 mg PO DAILY 03/05/21 04/05/21 Unknown History carBAMazepine [TEGretol] 200 mg PO BID 03/05/21 04/05/21 Unknown History lisinopriL [Lisinopril] 10 mg PO DAILY 03/05/21 04/05/[address] [Depakote Dr] 500 mg PO BID #60 03/13/21 04/05/21 Unknown Rx Melatonin [Melatonin 5MG TAB] 5 mg PO QHS PRN #30 tablet 03/13/21 04/05/21 Unknown Rx haloperidoL [Haldol] 5 mg PO BID #60 tablet 03/13/21 04/05/21 Unknown Rx hydrALAZINE [Apresoline TAB] 10 mg PO Q6H PRN #120 tablet 03/13/21 04/05/21 Unknown Rx traZODone [Desyrel] 50 mg PO QHS #30 tablet 03/13/21 04/05/21 Unknown Rx Active Meds: Active Medications Benztropine Mesylate (Benztropine 1 Mg Tab) 1 mg PO DAILY [facility] Last Admin: 04/13/21 09:56 Dose: 1 mg Documented by: Carbamazepine (Carbamazepine 200 Mg Tab) 200 mg PO BID [facility] Last Admin: 04/13/21 21:39 Dose: 200 mg Documented by: Divalproex Sodium (Divalproex Dr 500 Mg Tab) 500 mg PO TID [facility] Last Admin: 04/13/21 20:07 Dose: 500 mg Documented by: Enoxaparin Sodium (Enoxaparin 40 Mg/0.4 Ml Inj) 40 mg SUB-Q QDAY@2200 [facility]; Protocol Last Admin: 04/13/21 21:38 Dose: 40 mg Documented by: Famotidine (Famotidine 20 Mg Tab) 20 mg PO QDAY [facility] Last Admin: 04/13/21 09:57 Dose: 20 mg Documented by: Haloperidol (Haloperidol 5 Mg Tab) 10 mg PO BID [facility] Last Admin: 04/13/21 21:39 Dose: 10 mg Documented by: Hydralazine HCl (Hydralazine 10 Mg Tab) 10 mg PO Q6H PRN PRN Reason: Hypertension Lisinopril (Lisinopril 10 Mg Tab) 20 mg PO DAILY [facility] Last Admin: 04/13/21 09:56 Dose: 20 mg Documented by: Melatonin (Melatonin 5 Mg Tab) 5 mg PO QHS PRN PRN Reason: Sleep Trazodone HCl (Trazodone 50 Mg Tab) 50 mg PO QHS [facility] Last Admin: 04/13/21 21:38 Dose: 50 mg Documented by: Results - Results Labs/Vitals: Laboratory Last Values WBC 4.4 K/mm3 (4.5-11.0) L 04/05/21 05:05 RBC 3.98 M/mm3 (3.65-5.03) 04/05/21 05:05 Hgb 12.4 gm/dl (10.1-14.3) 04/05/21 05:05 Hct 35.1 % (30.3-42.9) 04/05/21 05:05 MCV 88 fl (79-97) 04/05/21 05:05 MCH 31 pg (28-32) 04/05/21 05:05 MCHC 35 % (30-34) H 04/05/21 05:05 RDW 13.8 % (13.2-15.2) 04/05/21 05:05 Plt Count 201 K/mm3 (140-440) 04/05/21 05:05 Lymph % (Auto) 32.0 % (13.4-35.0) 04/05/21 05:05 [place] % (Auto) 7.3 % (0.0-7.3) 04/05/21 05:05 Eos % (Auto) 3.3 % (0.0-4.3) 04/05/21 05:05 Baso % (Auto) 0.7 % (0.0-1.8) 04/05/21 05:05 Lymph # (Auto) 1.4 K/mm3 (1.2-5.4) 04/05/21 05:05 [place] # (Auto) 0.3 K/mm3 (0.0-0.8) 04/05/21 05:05 Eos # (Auto) 0.1 K/mm3 (0.0-0.4) 04/05/21 05:05 Baso # (Auto) 0.0 K/mm3 (0.0-0.1) 04/05/21 05:05 Seg Neutrophils % 56.7 % (40.0-70.0) 04/05/21 05:05 Seg Neutrophils # 2.5 K/mm3 (1.8-7.7) 04/05/21 05:05 Sodium 143 mmol/L (137-145) 04/05/21 05:05 Potassium 3.7 mmol/L (3.6-5.0) 04/05/21 05:05 Chloride 109.8 mmol/L (98-107) H 04/05/21 05:05 Carbon Dioxide 24 mmol/L (22-30) 04/05/21 05:05 Anion Gap 13 mmol/L 04/05/21 05:05 BUN 23 mg/dL (7-17) H 04/05/21 05:05 Creatinine 0.9 mg/dL (0.6-1.2) 04/05/21 05:05 Estimated GFR > 60 ml/min 04/05/21 05:05 BUN/Creatinine Ratio 26 % 04/05/21 05:05 Glucose 102 mg/dL (65-100) H 04/05/21 05:05 POC Glucose 71 mg/dL (70-105) 04/06/21 06:17 Hemoglobin A1c 5.1 % (4-6) 04/05/21 05:05 Calcium 8.8 mg/dL (8.4-10.2) 04/05/21 05:05 Total Bilirubin 0.30 mg/dL (0.1-1.2) 04/05/21 05:05 AST 11 units/L (5-40) 04/05/21 05:05 ALT < 5 units/L (7-56) L 04/05/21 05:05 Alkaline Phosphatase 51 units/L (35-129) 04/05/21 05:05 Total Protein 6.1 g/dL (6.3-8.2) L 04/05/21 05:05 Albumin 3.2 g/dL (3.9-5) L 04/05/21 05:05 Albumin/Globulin Ratio 1.1 % 04/05/21 05:05 Triglycerides 79 mg/dL (2-149) 04/05/21 05:05 Cholesterol 232 mg/dL (50-199) H 04/05/21 05:05 LDL Cholesterol Direct 162 mg/dL (50-130) H 04/05/21 05:05 HDL Cholesterol 48 mg/dL (40-59) 04/05/21 05:05 Cholesterol/HDL Ratio 4.83 % 04/05/21 05:05 TSH 0.324 mlU/mL (0.270-4.200) 04/05/21 05:05 Valproic Acid 109.1 ug/mL (50-100) H 04/09/21 06:04 Last Vital Signs Temp 99.1 F 04/13/21 19:39 Pulse 80 04/13/21 19:39 Resp 16 04/13/21 19:39 BP 145/80 04/13/21 19:39 Pulse Ox 100 04/13/21 19:39
[2021-04-14] MEDS: LISINOPRIL 10 MG TAB PO SCH (09:59)
[2021-04-14] MEDS: carBAMazepine 200 MG TAB PO SCH ×2 (10:00→21:02)
[2021-04-14] MEDS: HALOPERIDOL 5 MG TAB PO SCH ×2 (10:00→21:01)
[2021-04-14] MEDS: BENZTROPINE 1 MG TAB PO SCH (10:00)
[2021-04-14] MEDS: DIVALPROEX DR 500 MG TAB PO SCH ×3 (10:00→20:46)
[2021-04-14] MEDS: FAMOTIDINE 20 MG TAB PO SCH (10:00)
[2021-04-14] MEDS ORDERED: HALOPERIDOL DECANOATE 100 MG/1 ML INJ IM ONE (17:00)
[2021-04-14] MEDS: traZODone 50 MG TAB PO SCH (21:01)
[2021-04-14] MEDS: ENOXAPARIN 40 MG/0.4 ML INJ SUB-Q SCH (21:02)
[2021-04-15] MEDS: BENZTROPINE 1 MG TAB PO SCH (09:04)
[2021-04-15] MEDS: carBAMazepine 200 MG TAB PO SCH ×2 (09:04→21:45)
[2021-04-15] MEDS: FAMOTIDINE 20 MG TAB PO SCH (09:04)
[2021-04-15] MEDS: DIVALPROEX DR 500 MG TAB PO SCH ×3 (09:04→21:45)
[2021-04-15] MEDS: LISINOPRIL 10 MG TAB PO SCH (10:13)
--- NOTE | 2021-04-15 10:41 | Progress Note ---
Subjective Date of service: 04/15/21 Principal diagnosis: schizophrenia Subjective Comment: 04/11/2021: The patient was seen eating breakfast. Patient is easily angered. The patient became irate when a staff member called her name stating " I'm not Bethanie Tracey , I am Cinderella" she states mood as " very good." She denies any current suicidal/homicidal ideation and denies hallucinations. No changes made today. 04/12/2021: The patient was seen in the activity room, she was calm but easily irritated. The patient is isolative. she states mood as good. She denies any current suicidal/homicidal ideation and denies hallucinations. No changes made today. 04/13/2021: The patient is seen eating breakfast. She presents with evasive eye contact and flat affect. She states she is doing well and mood as fine. 04/14/2021: The patient seen this morning, she continues to be isolative and easily irritated. She states mood as good. She states sleep and appetite as good. She denies any current suicidal/homicidal ideation and denies hallucinations. 04/15/2021: The patient was seen sleeping; she opened her eyes and states mood is fine. No changes made today. Reason for continued inpatient treatment: Placement- The patient continues to be easily irritated. REVIEW OF SYSTEMS Could not obtain MENTAL STATUS EXAMINATION could not obtain Assessment and Plan (1) Schizophrenia Current Visit: Yes Status: Acute Treatment Plan Patient admitted for inpatient psychiatric evaluation, medication adjustment and close monitoring The patient's behavior, mood, sleep and appetite will be closely monitored. Patient enrolled in individual and group therapeutic sessions and encouraged to attend. Patient provided with a safe and structured environment. Patient's physical health needs will be addressed by the Hospitalist. Hospitalist Consulted Labs including CBC, CMP, Lipid profile and Hemoglobin A1C levels ordered for baseline reference Valproic 04/08 Social Assessment will be completed and the Maternity Nurse will work with patient and family to ensure a suitable and safe disposition Medication adjustment will be made as clinically indicated Continue Haldol 10mg po BID No changes today Usual Wellness Restorationist/Preservation: - Start Trazodone 50 mg po QHS & 50 mg po QHS PRN between 10 PM & 2 AM for insomnia - Start Melatonin 5 mg po QHS to promote circadian rhythm The patient agreed on the treatment plan, understood the risk, benefit, alternative treatment, potential consequence of no treatment, and gave informed consent. Estimated days: 4 Post hospital care: primary care provider, psychiatric provider Case staffed with Dr. Naranjo Medications and Allergies Medications and Allergies Allergies Allergy/AdvReac Type Severity Reaction Status Date / Time No Known Drug Allergies Allergy Unknown Verified 03/05/21 02:54 Home Medications Medication Instructions Recorded Confirmed Last Taken Type Benztropine [Cogentin] 1 mg PO DAILY 03/05/21 04/05/21 Unknown History carBAMazepine [TEGretol] 200 mg PO BID 03/05/21 04/05/21 Unknown History lisinopriL [Lisinopril] 10 mg PO DAILY 03/05/21 04/05/[address] [Depakote ] 500 mg PO BID #60 03/13/21 04/05/21 Unknown Rx Melatonin [Melatonin 5MG TAB] 5 mg PO QHS PRN #30 tablet 03/13/21 04/05/21 Unknown Rx haloperidoL [Haldol] 5 mg PO BID #60 tablet 03/13/21 04/05/21 Unknown Rx hydrALAZINE [Apresoline TAB] 10 mg PO Q6H PRN #120 tablet 03/13/21 04/05/21 Unknown Rx traZODone [Desyrel] 50 mg PO QHS #30 tablet 03/13/21 04/05/21 Unknown Rx Active Meds: Active Medications Benztropine Mesylate (Benztropine 1 Mg Tab) 1 mg PO DAILY [facility] Last Admin: 04/15/21 09:04 Dose: 1 mg Documented by: Carbamazepine (Carbamazepine 200 Mg Tab) 200 mg PO BID [facility] Last Admin: 04/15/21 09:04 Dose: 200 mg Documented by: Divalproex Sodium (Divalproex Dr 500 Mg Tab) 500 mg PO TID [facility] Last Admin: 04/15/21 09:04 Dose: 500 mg Documented by: Enoxaparin Sodium (Enoxaparin 40 Mg/0.4 Ml Inj) 40 mg SUB-Q QDAY@2200 [facility]; Protocol Last Admin: 04/14/21 21:02 Dose: Not Given Documented by: Famotidine (Famotidine 20 Mg Tab) 20 mg PO QDAY [facility] Last Admin: 04/15/21 09:04 Dose: 20 mg Documented by: Haloperidol (Haloperidol 5 Mg Tab) 10 mg PO BID [facility] Last Admin: 04/14/21 21:01 Dose: 10 mg Documented by: Hydralazine HCl (Hydralazine 10 Mg Tab) 10 mg PO Q6H PRN PRN Reason: Hypertension Lisinopril (Lisinopril 10 Mg Tab) 20 mg PO DAILY [facility] Last Admin: 04/15/21 10:13 Dose: 20 mg Documented by: Melatonin (Melatonin 5 Mg Tab) 5 mg PO QHS PRN PRN Reason: Sleep Trazodone HCl (Trazodone 50 Mg Tab) 50 mg PO QHS [facility] Last Admin: 04/14/21 21:01 Dose: 50 mg Documented by: Results - Results Labs/Vitals: Laboratory Last Values WBC 4.4 K/mm3 (4.5-11.0) L 04/05/21 05:05 RBC 3.98 M/mm3 (3.65-5.03) 04/05/21 05:05 Hgb 12.4 gm/dl (10.1-14.3) 04/05/21 05:05 Hct 35.1 % (30.3-42.9) 04/05/21 05:05 MCV 88 fl (79-97) 04/05/21 05:05 MCH 31 pg (28-32) 04/05/21 05:05 MCHC 35 % (30-34) H 04/05/21 05:05 RDW 13.8 % (13.2-15.2) 04/05/21 05:05 Plt Count 201 K/mm3 (140-440) 04/05/21 05:05 Lymph % (Auto) 32.0 % (13.4-35.0) 04/05/21 05:05 [place] % (Auto) 7.3 % (0.0-7.3) 04/05/21 05:05 Eos % (Auto) 3.3 % (0.0-4.3) 04/05/21 05:05 Baso % (Auto) 0.7 % (0.0-1.8) 04/05/21 05:05 Lymph # (Auto) 1.4 K/mm3 (1.2-5.4) 04/05/21 05:05 [place] # (Auto) 0.3 K/mm3 (0.0-0.8) 04/05/21 05:05 Eos # (Auto) 0.1 K/mm3 (0.0-0.4) 04/05/21 05:05 Baso # (Auto) 0.0 K/mm3 (0.0-0.1) 04/05/21 05:05 Seg Neutrophils % 56.7 % (40.0-70.0) 04/05/21 05:05 Seg Neutrophils # 2.5 K/mm3 (1.8-7.7) 04/05/21 05:05 Sodium 143 mmol/L (137-145) 04/05/21 05:05 Potassium 3.7 mmol/L (3.6-5.0) 04/05/21 05:05 Chloride 109.8 mmol/L (98-107) H 04/05/21 05:05 Carbon Dioxide 24 mmol/L (22-30) 04/05/21 05:05 Anion Gap 13 mmol/L 04/05/21 05:05 BUN 23 mg/dL (7-17) H 04/05/21 05:05 Creatinine 0.9 mg/dL (0.6-1.2) 04/05/21 05:05 Estimated GFR > 60 ml/min 04/05/21 05:05 BUN/Creatinine Ratio 26 % 04/05/21 05:05 Glucose 102 mg/dL (65-100) H 04/05/21 05:05 POC Glucose 71 mg/dL (70-105) 04/06/21 06:17 Hemoglobin A1c 5.1 % (4-6) 04/05/21 05:05 Calcium 8.8 mg/dL (8.4-10.2) 04/05/21 05:05 Total Bilirubin 0.30 mg/dL (0.1-1.2) 04/05/21 05:05 AST 11 units/L (5-40) 04/05/21 05:05 ALT < 5 units/L (7-56) L 04/05/21 05:05 Alkaline Phosphatase 51 units/L (35-129) 04/05/21 05:05 Total Protein 6.1 g/dL (6.3-8.2) L 04/05/21 05:05 Albumin 3.2 g/dL (3.9-5) L 04/05/21 05:05 Albumin/Globulin Ratio 1.1 % 04/05/21 05:05 Triglycerides 79 mg/dL (2-149) 04/05/21 05:05 Cholesterol 232 mg/dL (50-199) H 04/05/21 05:05 LDL Cholesterol Direct 162 mg/dL (50-130) H 04/05/21 05:05 HDL Cholesterol 48 mg/dL (40-59) 04/05/21 05:05 Cholesterol/HDL Ratio 4.83 % 04/05/21 05:05 TSH 0.324 mlU/mL (0.270-4.200) 04/05/21 05:05 Valproic Acid 109.1 ug/mL (50-100) H 04/09/21 06:04 Last Vital Signs Temp 99.4 F 04/14/21 19:59 Pulse 87 04/15/21 10:13 Resp 18 04/14/21 19:59 BP 125/85 04/15/21 10:13 Pulse Ox 96 04/14/21 19:59
[2021-04-15] MEDS: HALOPERIDOL 5 MG TAB PO SCH ×2 (18:56→21:45)
[2021-04-15] MEDS: traZODone 50 MG TAB PO SCH (21:45)
[2021-04-15] MEDS: ENOXAPARIN 40 MG/0.4 ML INJ SUB-Q SCH (21:45)
[2021-04-16] MEDS: HALOPERIDOL 5 MG TAB PO SCH ×2 (10:34→22:13)
[2021-04-16] MEDS: carBAMazepine 200 MG TAB PO SCH ×2 (10:34→22:12)
[2021-04-16] MEDS: LISINOPRIL 10 MG TAB PO SCH (10:34)
[2021-04-16] MEDS: FAMOTIDINE 20 MG TAB PO SCH (10:34)
[2021-04-16] MEDS: BENZTROPINE 1 MG TAB PO SCH (10:34)
[2021-04-16] MEDS: DIVALPROEX DR 500 MG TAB PO SCH ×2 (10:34→22:13)
--- NOTE | 2021-04-16 13:36 | Progress Note ---
Subjective Date of service: 04/16/21 Principal diagnosis: schizophrenia Subjective Comment: 04/11/2021: The patient was seen eating breakfast. Patient is easily angered. The patient became irate when a staff member called her name stating " I'm not Bethanie Tracey , I am Cinderella" she states mood as " very good." She denies any current suicidal/homicidal ideation and denies hallucinations. No changes made today. 04/12/2021: The patient was seen in the activity room, she was calm but easily irritated. The patient is isolative. she states mood as good. She denies any current suicidal/homicidal ideation and denies hallucinations. No changes made today. 04/13/2021: The patient is seen eating breakfast. She presents with evasive eye contact and flat affect. She states she is doing well and mood as fine. 04/14/2021: The patient seen this morning, she continues to be isolative and easily irritated. She states mood as good. She states sleep and appetite as good. She denies any current suicidal/homicidal ideation and denies hallucinations. 04/15/2021: The patient was seen sleeping; she opened her eyes and states mood is fine. No changes made today. 04/16/2021: The patient continues to be easily irritated, flat affect and isolative. She states sleep and appetite as good. She denies any current suicidal/homicidal ideation and denies hallucinations. Reason for continued inpatient treatment: Placement- The patient continues to be easily irritated. REVIEW OF SYSTEMS Could not obtain MENTAL STATUS EXAMINATION could not obtain Assessment and Plan (1) Schizophrenia Current Visit: Yes Status: Acute Treatment Plan Patient admitted for inpatient psychiatric evaluation, medication adjustment and close monitoring The patient's behavior, mood, sleep and appetite will be closely monitored. Patient enrolled in individual and group therapeutic sessions and encouraged to attend. Patient provided with a safe and structured environment. Patient's physical health needs will be addressed by the Hospitalist. Hospitalist Consulted Labs including CBC, CMP, Lipid profile and Hemoglobin A1C levels ordered for baseline reference Valproic 04/08 Social Assessment will be completed and the Network Support will work with patient and family to ensure a suitable and safe disposition Medication adjustment will be made as clinically indicated Continue Haldol 10mg po BID No changes today Usual Wellness [place]/Preservation: - Start Trazodone 50 mg po QHS & 50 mg po QHS PRN between 10 PM & 2 AM for insomnia - Start Melatonin 5 mg po QHS to promote circadian rhythm The patient agreed on the treatment plan, understood the risk, benefit, alternative treatment, potential consequence of no treatment, and gave informed consent. Estimated days: 4 Post hospital care: primary care provider, psychiatric provider Case staffed with Dr. Naranjo Medications and Allergies Allergies Allergy/AdvReac Type Severity Reaction Status Date / Time No Known Drug Allergies Allergy Unknown Verified 03/05/21 02:54 Home Medications Medication Instructions Recorded Confirmed Last Taken Type Benztropine [Cogentin] 1 mg PO DAILY 03/05/21 04/05/21 Unknown History carBAMazepine [TEGretol] 200 mg PO BID 03/05/21 04/05/21 Unknown History lisinopriL [Lisinopril] 10 mg PO DAILY 03/05/21 04/05/[address] [Depakote Dr] 500 mg PO BID #60 03/13/21 04/05/21 Unknown Rx Melatonin [Melatonin 5MG TAB] 5 mg PO QHS PRN #30 tablet 03/13/21 04/05/21 Unknown Rx haloperidoL [Haldol] 5 mg PO BID #60 tablet 03/13/21 04/05/21 Unknown Rx hydrALAZINE [Apresoline TAB] 10 mg PO Q6H PRN #120 tablet 03/13/21 04/05/21 Unknown Rx traZODone [Desyrel] 50 mg PO QHS #30 tablet 03/13/21 04/05/21 Unknown Rx Active Meds: Active Medications Benztropine Mesylate (Benztropine 1 Mg Tab) 1 mg PO DAILY REPLACED BY [facility] Last Admin: 04/16/21 10:34 Dose: 1 mg Documented by: Carbamazepine (Carbamazepine 200 Mg Tab) 200 mg PO BID REPLACED BY [facility] Last Admin: 04/16/21 10:34 Dose: 200 mg Documented by: Divalproex Sodium (Divalproex Dr 500 Mg Tab) 500 mg PO BID REPLACED BY [facility] Last Admin: 04/16/21 10:34 Dose: 500 mg Documented by: Enoxaparin Sodium (Enoxaparin 40 Mg/0.4 Ml Inj) 40 mg SUB-Q QDAY@2200 REPLACED BY [facility]; Protocol Last Admin: 04/15/21 21:45 Dose: 40 mg Documented by: Famotidine (Famotidine 20 Mg Tab) 20 mg PO QDAY REPLACED BY [facility] Last Admin: 04/16/21 10:34 Dose: 20 mg Documented by: Haloperidol (Haloperidol 5 Mg Tab) 5 mg PO BID REPLACED BY [facility] Last Admin: 04/16/21 10:34 Dose: 5 mg Documented by: Hydralazine HCl (Hydralazine 10 Mg Tab) 10 mg PO Q6H PRN PRN Reason: Hypertension Lisinopril (Lisinopril 10 Mg Tab) 20 mg PO DAILY REPLACED BY [facility] Last Admin: 04/16/21 10:34 Dose: 20 mg Documented by: Melatonin (Melatonin 5 Mg Tab) 5 mg PO QHS PRN PRN Reason: Sleep Trazodone HCl (Trazodone 50 Mg Tab) 50 mg PO QHS REPLACED BY [facility] Last Admin: 04/15/21 21:45 Dose: 50 mg Documented by: Results - Results Labs/Vitals: Laboratory Last Values WBC 4.4 K/mm3 (4.5-11.0) L 04/05/21 05:05 RBC 3.98 M/mm3 (3.65-5.03) 04/05/21 05:05 Hgb 12.4 gm/dl (10.1-14.3) 04/05/21 05:05 Hct 35.1 % (30.3-42.9) 04/05/21 05:05 MCV 88 fl (79-97) 04/05/21 05:05 MCH 31 pg (28-32) 04/05/21 05:05 MCHC 35 % (30-34) H 04/05/21 05:05 RDW 13.8 % (13.2-15.2) 04/05/21 05:05 Plt Count 201 K/mm3 (140-440) 04/05/21 05:05 Lymph % (Auto) 32.0 % (13.4-35.0) 04/05/21 05:05 [place] % (Auto) 7.3 % (0.0-7.3) 04/05/21 05:05 Eos % (Auto) 3.3 % (0.0-4.3) 04/05/21 05:05 Baso % (Auto) 0.7 % (0.0-1.8) 04/05/21 05:05 Lymph # (Auto) 1.4 K/mm3 (1.2-5.4) 04/05/21 05:05 [place] # (Auto) 0.3 K/mm3 (0.0-0.8) 04/05/21 05:05 Eos # (Auto) 0.1 K/mm3 (0.0-0.4) 04/05/21 05:05 Baso # (Auto) 0.0 K/mm3 (0.0-0.1) 04/05/21 05:05 Seg Neutrophils % 56.7 % (40.0-70.0) 04/05/21 05:05 Seg Neutrophils # 2.5 K/mm3 (1.8-7.7) 04/05/21 05:05 Sodium 143 mmol/L (137-145) 04/05/21 05:05 Potassium 3.7 mmol/L (3.6-5.0) 04/05/21 05:05 Chloride 109.8 mmol/L (98-107) H 04/05/21 05:05 Carbon Dioxide 24 mmol/L (22-30) 04/05/21 05:05 Anion Gap 13 mmol/L 04/05/21 05:05 BUN 23 mg/dL (7-17) H 04/05/21 05:05 Creatinine 0.9 mg/dL (0.6-1.2) 04/05/21 05:05 Estimated GFR > 60 ml/min 04/05/21 05:05 BUN/Creatinine Ratio 26 % 04/05/21 05:05 Glucose 102 mg/dL (65-100) H 04/05/21 05:05 POC Glucose 71 mg/dL (70-105) 04/06/21 06:17 Hemoglobin A1c 5.1 % (4-6) 04/05/21 05:05 Calcium 8.8 mg/dL (8.4-10.2) 04/05/21 05:05 Total Bilirubin 0.30 mg/dL (0.1-1.2) 04/05/21 05:05 AST 11 units/L (5-40) 04/05/21 05:05 ALT < 5 units/L (7-56) L 04/05/21 05:05 Alkaline Phosphatase 51 units/L (35-129) 04/05/21 05:05 Total Protein 6.1 g/dL (6.3-8.2) L 04/05/21 05:05 Albumin 3.2 g/dL (3.9-5) L 04/05/21 05:05 Albumin/Globulin Ratio 1.1 % 04/05/21 05:05 Triglycerides 79 mg/dL (2-149) 04/05/21 05:05 Cholesterol 232 mg/dL (50-199) H 04/05/21 05:05 LDL Cholesterol Direct 162 mg/dL (50-130) H 04/05/21 05:05 HDL Cholesterol 48 mg/dL (40-59) 04/05/21 05:05 Cholesterol/HDL Ratio 4.83 % 04/05/21 05:05 TSH 0.324 mlU/mL (0.270-4.200) 04/05/21 05:05 Valproic Acid 109.1 ug/mL (50-100) H 04/09/21 06:04 Last Vital Signs Temp 98.7 F 04/16/21 10:09 Pulse 98 H 04/16/21 10:34 Resp 20 04/16/21 10:09 BP 117/83 04/16/21 10:34 Pulse Ox 97 04/16/21 10:09
[2021-04-16] MEDS: traZODone 50 MG TAB PO SCH (22:11)
[2021-04-16] MEDS: ENOXAPARIN 40 MG/0.4 ML INJ SUB-Q SCH (22:13)
--- NOTE | 2021-04-17 09:34 | Progress Note ---
Subjective Date of service: 04/17/21 Principal diagnosis: schizophrenia Subjective Comment: 04/11/2021: The patient was seen eating breakfast. Patient is easily angered. The patient became irate when a staff member called her name stating " I'm not Bethanie Tracey , I am Cinderella" she states mood as " very good." She denies any current suicidal/homicidal ideation and denies hallucinations. No changes made today. 04/12/2021: The patient was seen in the activity room, she was calm but easily irritated. The patient is isolative. she states mood as good. She denies any current suicidal/homicidal ideation and denies hallucinations. No changes made today. 04/13/2021: The patient is seen eating breakfast. She presents with evasive eye contact and flat affect. She states she is doing well and mood as fine. 04/14/2021: The patient seen this morning, she continues to be isolative and easily irritated. She states mood as good. She states sleep and appetite as goo d. She denies any current suicidal/homicidal ideation and denies hallucinations. 04/15/2021: The patient was seen sleeping; she opened her eyes and states mood is fine. No changes made today. 04/16/2021: The patient continues to be easily irritated, flat affect and isolative. She states sleep and appetite as good. She denies any current suicidal/homicidal ideation and denies hallucinations. 04/17/2021: The patient was seen in the activity room, she reports doing well. States sleep and appetite as good. She denies si/hi/avhs. Reason for continued inpatient treatment: Placement- The patient continues to be easily irritated. REVIEW OF SYSTEMS Could not obtain MENTAL STATUS EXAMINATION could not obtain Assessment and Plan (1) Schizophrenia Current Visit: Yes Status: Acute Treatment Plan Patient admitted for inpatient psychiatric evaluation, medication adjustment and close monitoring The patient's behavior, mood, sleep and appetite will be closely monitored. Patient enrolled in individual and group therapeutic sessions and encouraged to attend. Patient provided with a safe and structured environment. Patient's physical health needs will be addressed by the Hospitalist. Hospitalist Consulted Labs including CBC, CMP, Lipid profile and Hemoglobin A1C levels ordered for baseline reference Valproic 04/08 Social Assessment will be completed and the Bottom Turning Lathe Turner will work with patient and family to ensure a suitable and safe disposition Medication adjustment will be made as clinically indicated Continue Haldol 10mg po BID No changes today Usual Wellness Congregation/Preservation: - Start Trazodone 50 mg po QHS & 50 mg po QHS PRN between 10 PM & 2 AM for insomnia - Start Melatonin 5 mg po QHS to promote circadian rhythm The patient agreed on the treatment plan, understood the risk, benefit, alternative treatment, potential consequence of no treatment, and gave informed consent. Estimated days: 4 Post hospital care: primary care provider, psychiatric provider Case staffed with Dr. Naranjo Medications and Allergies Allergies Allergy/AdvReac Type Severity Reaction Status Date / Time No Known Drug Allergies Allergy Unknown Verified 03/05/21 02:54 Home Medications Medication Instructions Recorded Confirmed Last Taken Type Benztropine [Cogentin] 1 mg PO DAILY 03/05/21 04/05/21 Unknown History carBAMazepine [TEGretol] 200 mg PO BID 03/05/21 04/05/21 Unknown History lisinopriL [Lisinopril] 10 mg PO DAILY 03/05/21 04/05/[address] [Depakote ] 500 mg PO BID #60 03/13/21 04/05/21 Unknown Rx Melatonin [Melatonin 5MG TAB] 5 mg PO QHS PRN #30 tablet 03/13/21 04/05/21 Unknown Rx haloperidoL [Haldol] 5 mg PO BID #60 tablet 03/13/21 04/05/21 Unknown Rx hydrALAZINE [Apresoline TAB] 10 mg PO Q6H PRN #120 tablet 03/13/21 04/05/21 Unknown Rx traZODone [Desyrel] 50 mg PO QHS #30 tablet 03/13/21 04/05/21 Unknown Rx Active Meds: Active Medications Benztropine Mesylate (Benztropine 1 Mg Tab) 1 mg PO DAILY [facility] Last Admin: 04/16/21 10:34 Dose: 1 mg Documented by: Carbamazepine (Carbamazepine 200 Mg Tab) 200 mg PO BID [facility] Last Admin: 04/16/21 22:12 Dose: 200 mg Documented by: Divalproex Sodium (Divalproex Dr 500 Mg Tab) 500 mg PO BID [facility] Last Admin: 04/16/21 22:13 Dose: 500 mg Documented by: Enoxaparin Sodium (Enoxaparin 40 Mg/0.4 Ml Inj) 40 mg SUB-Q QDAY@2200 [facility]; Protocol Last Admin: 04/16/21 22:13 Dose: 40 mg Documented by: Famotidine (Famotidine 20 Mg Tab) 20 mg PO QDAY [facility] Last Admin: 04/16/21 10:34 Dose: 20 mg Documented by: Haloperidol (Haloperidol 5 Mg Tab) 5 mg PO BID [facility] Last Admin: 04/16/21 22:13 Dose: 5 mg Documented by: Hydralazine HCl (Hydralazine 10 Mg Tab) 10 mg PO Q6H PRN PRN Reason: Hypertension Lisinopril (Lisinopril 10 Mg Tab) 20 mg PO DAILY [facility] Last Admin: 04/16/21 10:34 Dose: 20 mg Documented by: Melatonin (Melatonin 5 Mg Tab) 5 mg PO QHS PRN PRN Reason: Sleep Trazodone HCl (Trazodone 50 Mg Tab) 50 mg PO QHS [facility] Last Admin: 04/16/21 22:11 Dose: 50 mg Documented by: Results - Results Labs/Vitals: Laboratory Last Values WBC 4.4 K/mm3 (4.5-11.0) L 04/05/21 05:05 RBC 3.98 M/mm3 (3.65-5.03) 04/05/21 05:05 Hgb 12.4 gm/dl (10.1-14.3) 04/05/21 05:05 Hct 35.1 % (30.3-42.9) 04/05/21 05:05 MCV 88 fl (79-97) 04/05/21 05:05 MCH 31 pg (28-32) 04/05/21 05:05 MCHC 35 % (30-34) H 04/05/21 05:05 RDW 13.8 % (13.2-15.2) 04/05/21 05:05 Plt Count 201 K/mm3 (140-440) 04/05/21 05:05 Lymph % (Auto) 32.0 % (13.4-35.0) 04/05/21 05:05 [place] % (Auto) 7.3 % (0.0-7.3) 04/05/21 05:05 Eos % (Auto) 3.3 % (0.0-4.3) 04/05/21 05:05 Baso % (Auto) 0.7 % (0.0-1.8) 04/05/21 05:05 Lymph # (Auto) 1.4 K/mm3 (1.2-5.4) 04/05/21 05:05 [place] # (Auto) 0.3 K/mm3 (0.0-0.8) 04/05/21 05:05 Eos # (Auto) 0.1 K/mm3 (0.0-0.4) 04/05/21 05:05 Baso # (Auto) 0.0 K/mm3 (0.0-0.1) 04/05/21 05:05 Seg Neutrophils % 56.7 % (40.0-70.0) 04/05/21 05:05 Seg Neutrophils # 2.5 K/mm3 (1.8-7.7) 04/05/21 05:05 Sodium 143 mmol/L (137-145) 04/05/21 05:05 Potassium 3.7 mmol/L (3.6-5.0) 04/05/21 05:05 Chloride 109.8 mmol/L (98-107) H 04/05/21 05:05 Carbon Dioxide 24 mmol/L (22-30) 04/05/21 05:05 Anion Gap 13 mmol/L 04/05/21 05:05 BUN 23 mg/dL (7-17) H 04/05/21 05:05 Creatinine 0.9 mg/dL (0.6-1.2) 04/05/21 05:05 Estimated GFR > 60 ml/min 04/05/21 05:05 BUN/Creatinine Ratio 26 % 04/05/21 05:05 Glucose 102 mg/dL (65-100) H 04/05/21 05:05 POC Glucose 71 mg/dL (70-105) 04/06/21 06:17 Hemoglobin A1c 5.1 % (4-6) 04/05/21 05:05 Calcium 8.8 mg/dL (8.4-10.2) 04/05/21 05:05 Total Bilirubin 0.30 mg/dL (0.1-1.2) 04/05/21 05:05 AST 11 units/L (5-40) 04/05/21 05:05 ALT < 5 units/L (7-56) L 04/05/21 05:05 Alkaline Phosphatase 51 units/L (35-129) 04/05/21 05:05 Total Protein 6.1 g/dL (6.3-8.2) L 04/05/21 05:05 Albumin 3.2 g/dL (3.9-5) L 04/05/21 05:05 Albumin/Globulin Ratio 1.1 % 04/05/21 05:05 Triglycerides 79 mg/dL (2-149) 04/05/21 05:05 Cholesterol 232 mg/dL (50-199) H 04/05/21 05:05 LDL Cholesterol Direct 162 mg/dL (50-130) H 04/05/21 05:05 HDL Cholesterol 48 mg/dL (40-59) 04/05/21 05:05 Cholesterol/HDL Ratio 4.83 % 04/05/21 05:05 TSH 0.324 mlU/mL (0.270-4.200) 04/05/21 05:05 Valproic Acid 109.1 ug/mL (50-100) H 04/09/21 06:04 Last Vital Signs Temp 99.3 F 04/16/21 22:00 Pulse 18 L 04/16/21 22:00 Resp 18 04/16/21 22:00 BP 147/92 04/16/21 22:00 Pulse Ox 98 04/16/21 22:00
[2021-04-17] MEDS: FAMOTIDINE 20 MG TAB PO SCH (10:54)
[2021-04-17] MEDS: carBAMazepine 200 MG TAB PO SCH ×2 (10:54→22:06)
[2021-04-17] MEDS: DIVALPROEX DR 500 MG TAB PO SCH ×2 (10:54→22:05)
[2021-04-17] MEDS: HALOPERIDOL 5 MG TAB PO SCH ×2 (10:54→22:05)
[2021-04-17] MEDS: LISINOPRIL 10 MG TAB PO SCH (10:55)
[2021-04-17] MEDS: BENZTROPINE 1 MG TAB PO SCH (10:55)
[2021-04-17] MEDS: traZODone 50 MG TAB PO SCH (22:05)
[2021-04-17] MEDS: ENOXAPARIN 40 MG/0.4 ML INJ SUB-Q SCH (22:11)
--- NOTE | 2021-04-18 09:33 | Progress Note ---
Subjective Date of service: 04/18/21 Principal diagnosis: schizophrenia Subjective Comment: The patient was seen today. She is irritable but tells me she feels wonderful. She say she didn't sleep good. The patient is calm and cooperative if I don't refer to her by her real name. She likes to be called Jeanne. She denies SI/HI. She denies hallucinations. Reason for continued inpatient treatment: The patient is awaiting placement REVIEW OF SYSTEMS Could not obtain MENTAL STATUS EXAMINATION could not obtain Assessment and Plan (1) Schizophrenia Current Visit: Yes Status: Acute Treatment Plan Patient admitted for inpatient psychiatric evaluation, medication adjustment and close monitoring The patient's behavior, mood, sleep and appetite will be closely monitored. Patient enrolled in individual and group therapeutic sessions and encouraged to attend. Patient provided with a safe and structured environment. Patient's physical health needs will be addressed by the Hospitalist. Hospitalist Consulted Labs including CBC, CMP, Lipid profile and Hemoglobin A1C levels ordered for baseline reference Social Assessment will be completed and the Acid Tank Liner will work with patient and family to ensure a suitable and safe disposition Medication adjustment will be made as clinically indicated No changes today Usual Wellness Amish/Preservation: - Start Trazodone 50 mg po QHS & 50 mg po QHS PRN between 10 PM & 2 AM for insomnia - Start Melatonin 5 mg po QHS to promote circadian rhythm The patient agreed on the treatment plan, understood the risk, benefit, alternative treatment, potential consequence of no treatment, and gave informed consent. Estimated days: 4 Post hospital care: primary care provider, psychiatric provider Case staffed with Dr. Naranjo Medications and Allergies Allergies Allergy/AdvReac Type Severity Reaction Status Date / Time No Known Drug Allergies Allergy Unknown Verified 03/05/21 02:54 Home Medications Medication Instructions Recorded Confirmed Last Taken Type Benztropine [Cogentin] 1 mg PO DAILY 03/05/21 04/05/21 Unknown History carBAMazepine [TEGretol] 200 mg PO BID 03/05/21 04/05/21 Unknown History lisinopriL [Lisinopril] 10 mg PO DAILY 03/05/21 04/05/21 Unknown History Divalproex [[place]] 500 mg PO BID #60 03/13/21 04/05/21 Unknown Rx Melatonin [Melatonin 5MG TAB] 5 mg PO QHS PRN #30 tablet 03/13/21 04/05/21 Unknown Rx haloperidoL [Haldol] 5 mg PO BID #60 tablet 03/13/21 04/05/21 Unknown Rx hydrALAZINE [Apresoline TAB] 10 mg PO Q6H PRN #120 tablet 03/13/21 04/05/21 Unkn own Rx traZODone [Desyrel] 50 mg PO QHS #30 tablet 03/13/21 04/05/21 Unknown Rx Active Meds: Active Medications Benztropine Mesylate (Benztropine 1 Mg Tab) 1 mg PO DAILY [facility] Last Admin: 04/17/21 10:55 Dose: 1 mg Documented by: Carbamazepine (Carbamazepine 200 Mg Tab) 200 mg PO BID [facility] Last Admin: 04/17/21 22:06 Dose: 200 mg Documented by: Divalproex Sodium (Divalproex Dr 500 Mg Tab) 500 mg PO BID [facility] Last Admin: 04/17/21 22:05 Dose: 500 mg Documented by: Enoxaparin Sodium (Enoxaparin 40 Mg/0.4 Ml Inj) 40 mg SUB-Q QDAY@2200 [facility]; Protocol Last Admin: 04/17/21 22:11 Dose: 40 mg Documented by: Famotidine (Famotidine 20 Mg Tab) 20 mg PO QDAY [facility] Last Admin: 04/17/21 10:54 Dose: 20 mg Documented by: Haloperidol (Haloperidol 5 Mg Tab) 5 mg PO BID [facility] Last Admin: 04/17/21 22:05 Dose: 5 mg Documented by: Hydralazine HCl (Hydralazine 10 Mg Tab) 10 mg PO Q6H PRN PRN Reason: Hypertension Lisinopril (Lisinopril 10 Mg Tab) 20 mg PO DAILY [facility] Last Admin: 04/17/21 10:55 Dose: 20 mg Documented by: Melatonin (Melatonin 5 Mg Tab) 5 mg PO QHS PRN PRN Reason: Sleep Trazodone HCl (Trazodone 50 Mg Tab) 50 mg PO QHS [facility] Last Admin: 04/17/21 22:05 Dose: 50 mg Documented by: Results - Results Labs/Vitals: Laboratory Last Values WBC 4.4 K/mm3 (4.5-11.0) L 04/05/21 05:05 RBC 3.98 M/mm3 (3.65-5.03) 04/05/21 05:05 Hgb 12.4 gm/dl (10.1-14.3) 04/05/21 05:05 Hct 35.1 % (30.3-42.9) 04/05/21 05:05 MCV 88 fl (79-97) 04/05/21 05:05 MCH 31 pg (28-32) 04/05/21 05:05 MCHC 35 % (30-34) H 04/05/21 05:05 RDW 13.8 % (13.2-15.2) 04/05/21 05:05 Plt Count 201 K/mm3 (140-440) 04/05/21 05:05 Lymph % (Auto) 32.0 % (13.4-35.0) 04/05/21 05:05 [place] % (Auto) 7.3 % (0.0-7.3) 04/05/21 05:05 Eos % (Auto) 3.3 % (0.0-4.3) 04/05/21 05:05 Baso % (Auto) 0.7 % (0.0-1.8) 04/05/21 05:05 Lymph # (Auto) 1.4 K/mm3 (1.2-5.4) 04/05/21 05:05 [place] # (Auto) 0.3 K/mm3 (0.0-0.8) 04/05/21 05:05 Eos # (Auto) 0.1 K/mm3 (0.0-0.4) 04/05/21 05:05 Baso # (Auto) 0.0 K/mm3 (0.0-0.1) 04/05/21 05:05 Seg Neutrophils % 56.7 % (40.0-70.0) 04/05/21 05:05 Seg Neutrophils # 2.5 K/mm3 (1.8-7.7) 04/05/21 05:05 Sodium 143 mmol/L (137-145) 04/05/21 05:05 Potassium 3.7 mmol/L (3.6-5.0) 04/05/21 05:05 Chloride 109.8 mmol/L (98-107) H 04/05/21 05:05 Carbon Dioxide 24 mmol/L (22-30) 04/05/21 05:05 Anion Gap 13 mmol/L 04/05/21 05:05 BUN 23 mg/dL (7-17) H 04/05/21 05:05 Creatinine 0.9 mg/dL (0.6-1.2) 04/05/21 05:05 Estimated GFR > 60 ml/min 04/05/21 05:05 BUN/Creatinine Ratio 26 % 04/05/21 05:05 Glucose 102 mg/dL (65-100) H 04/05/21 05:05 POC Glucose 71 mg/dL (70-105) 04/06/21 06:17 Hemoglobin A1c 5.1 % (4-6) 04/05/21 05:05 Calcium 8.8 mg/dL (8.4-10.2) 04/05/21 05:05 Total Bilirubin 0.30 mg/dL (0.1-1.2) 04/05/21 05:05 AST 11 units/L (5-40) 04/05/21 05:05 ALT < 5 units/L (7-56) L 04/05/21 05:05 Alkaline Phosphatase 51 units/L (35-129) 04/05/21 05:05 Total Protein 6.1 g/dL (6.3-8.2) L 04/05/21 05:05 Albumin 3.2 g/dL (3.9-5) L 04/05/21 05:05 Albumin/Globulin Ratio 1.1 % 04/05/21 05:05 Triglycerides 79 mg/dL (2-149) 04/05/21 05:05 Cholesterol 232 mg/dL (50-199) H 04/05/21 05:05 LDL Cholesterol Direct 162 mg/dL (50-130) H 04/05/21 05:05 HDL Cholesterol 48 mg/dL (40-59) 04/05/21 05:05 Cholesterol/HDL Ratio 4.83 % 04/05/21 05:05 TSH 0.324 mlU/mL (0.270-4.200) 04/05/21 05:05 Valproic Acid 109.1 ug/mL (50-100) H 04/09/21 06:04 Last Vital Signs Temp 99.3 F 04/17/21 21:42 Pulse 80 04/17/21 21:42 Resp 16 04/17/21 21:42 BP 116/72 04/17/21 21:42 Pulse Ox 98 04/17/21 21:42
--- NOTE | 2021-04-18 09:41 | Discharge Summary ---
Providers - Providers Date of Admission: 04/04/21 17:12 Date of discharge: 04/18/21 Attending physician: ESTRADA MELO MD 04/04/21 10:48 Consult to Physician [CONS] Routine Comment: Consulting Provider: JOSHUA SALVADOR Physician Instructions: Reason For Exam: manage medical conditions Primary care physician: MAINTENANCE AIDE Hospitalization Reason for admission: psychosis Admitting Diagnosis: F20.9 - SCHIZOPHRENIA, UNSPECIFIED Condition: Stable Hospital course: The patient was provided inpatient psychiatric treatment with safe and supportive care, medication adjustment, adverse effect monitoring, medical evaluations, medical treatments, assessment and psycho-education. The patient's mood, cognition, behavior, moral support are improved and stabilized. St the time of discharge, the patient had no endangering behavior and no debilitating adverse effects. The patient agreed on potential consequences of no treatment and gave informed consent. 04/09 The patient was seen today. She is irritable and avoidant. She's also delusional. The patient tells me to stop calling her Mrs. Kovacs. She says "I keep telling you my name is Jeanne." We are trying to get her better to go home. She replied "I don't care if I don't go home. Lock me up in prison." She then pulled the linen over her head and refused further cooperate. 04/10 The patient was seen today. She is lying down in bed asleep. She easily arouses. She is more cooperative today. She says good morning to me. I called her by "Mrs. Kovacs" and she did not reference "Cinderella." She tells me that she is tired and didn't sleep well last night. When asking how she felt, the patient says "I'm good. I'm just ready to go home." Nursing staff reports psychosis, and easily irritable. 04/11/2021: The patient was seen eating breakfast. Patient is easily angered. The patient became irate when a staff member called her name stating " I'm not Bethanie Tracey , I am Cinderella" she states mood as " very good." She denies any current suicidal/homicidal ideation and denies hallucinations. No changes made today. 04/12/2021: The patient was seen in the activity room, she was calm but easily irritated. The patient is isolative. she states mood as good. She denies any current suicidal/homicidal ideation and denies hallucinations. No changes made today. 04/13/2021: The patient is seen eating breakfast. She presents with evasive eye contact and flat affect. She states she is doing well and mood as fine. 04/14/2021: The patient seen this morning, she continues to be isolative and easily irritated. She states mood as good. She states sleep and appetite as good. She denies any current suicidal/homicidal ideation and denies hallucina tions. 04/15/2021: The patient was seen sleeping; she opened her eyes and states mood is fine. No changes made today. 04/16/2021: The patient continues to be easily irritated, flat affect and isolative. She states sleep and appetite as good. She denies any current suicidal/homicidal ideation and denies hallucinations. 04/17/2021: The patient was seen in the activity room, she reports doing well. States sleep and appetite as good. She denies si/hi/avhs. 04/18 The patient was seen today. She is irritable but tells me she feels wonderful. She say she didn't sleep good. The patient is calm and cooperative if I don't refer to her by her real name. She likes to be called [facility]. She denies SI/HI. She denies hallucinations. Disposition: 01 HOME / SELF CARE / HOMELESS Time spent for discharge: 35 Allergies/Adverse Reactions: Allergies No Known Drug Allergies Allergy (Verified 03/05/21 02:54) Unknown Vital Signs: Last Vital Signs Temp 99.3 F 04/17/21 21:42 Pulse 80 04/17/21 21:42 Resp 16 04/17/21 21:42 BP 116/72 04/17/21 21:42 Pulse Ox 98 04/17/21 21:42 Last Lab: Laboratory Last Values WBC 4.4 K/mm3 (4.5-11.0) L 04/05/21 05:05 RBC 3.98 M/mm3 (3.65-5.03) 04/05/21 05:05 Hgb 12.4 gm/dl (10.1-14.3) 04/05/21 05:05 Hct 35.1 % (30.3-42.9) 04/05/21 05:05 MCV 88 fl (79-97) 04/05/21 05:05 MCH 31 pg (28-32) 04/05/21 05:05 MCHC 35 % (30-34) H 04/05/21 05:05 RDW 13.8 % (13.2-15.2) 04/05/21 05:05 Plt Count 201 K/mm3 (140-440) 04/05/21 05:05 Lymph % (Auto) 32.0 % (13.4-35.0) 04/05/21 05:05 [place] % (Auto) 7.3 % (0.0-7.3) 04/05/21 05:05 Eos % (Auto) 3.3 % (0.0-4.3) 04/05/21 05:05 Baso % (Auto) 0.7 % (0.0-1.8) 04/05/21 05:05 Lymph # (Auto) 1.4 K/mm3 (1.2-5.4) 04/05/21 05:05 [place] # (Auto) 0.3 K/mm3 (0.0-0.8) 04/05/21 05:05 Eos # (Auto) 0.1 K/mm3 (0.0-0.4) 04/05/21 05:05 Baso # (Auto) 0.0 K/mm3 (0.0-0.1) 04/05/21 05:05 Seg Neutrophils % 56.7 % (40.0-70.0) 04/05/21 05:05 Seg Neutrophils # 2.5 K/mm3 (1.8-7.7) 04/05/21 05:05 Sodium 143 mmol/L (137-145) 04/05/21 05:05 Potassium 3.7 mmol/L (3.6-5.0) 04/05/21 05:05 Chloride 109.8 mmol/L (98-107) H 04/05/21 05:05 Carbon Dioxide 24 mmol/L (22-30) 04/05/21 05:05 Anion Gap 13 mmol/L 04/05/21 05:05 BUN 23 mg/dL (7-17) H 04/05/21 05:05 Creatinine 0.9 mg/dL (0.6-1.2) 04/05/21 05:05 Estimated GFR > 60 ml/min 04/05/21 05:05 BUN/Creatinine Ratio 26 % 04/05/21 05:05 Glucose 102 mg/dL (65-100) H 04/05/21 05:05 POC Glucose 71 mg/dL (70-105) 04/06/21 06:17 Hemoglobin A1c 5.1 % (4-6) 04/05/21 05:05 Calcium 8.8 mg/dL (8.4-10.2) 04/05/21 05:05 Total Bilirubin 0.30 mg/dL (0.1-1.2) 04/05/21 05:05 AST 11 units/L (5-40) 04/05/21 05:05 ALT < 5 units/L (7-56) L 04/05/21 05:05 Alkaline Phosphatase 51 units/L (35-129) 04/05/21 05:05 Total Protein 6.1 g/dL (6.3-8.2) L 04/05/21 05:05 Albumin 3.2 g/dL (3.9-5) L 04/05/21 05:05 Albumin/Globulin Ratio 1.1 % 04/05/21 05:05 Triglycerides 79 mg/dL (2-149) 04/05/21 05:05 Cholesterol 232 mg/dL (50-199) H 04/05/21 05:05 LDL Cholesterol Direct 162 mg/dL (50-130) H 04/05/21 05:05 HDL Cholesterol 48 mg/dL (40-59) 04/05/21 05:05 Cholesterol/HDL Ratio 4.83 % 04/05/21 05:05 TSH 0.324 mlU/mL (0.270-4.200) 04/05/21 05:05 Valproic Acid 109.1 ug/mL (50-100) H 04/09/21 06:04 Core Measure Documentation - Palliative Care Palliative Care/ Comfort Measures: Not Applicable - Core Measures Any of the following diagnoses?: none Exam - Constitutional Vitals: Temp Pulse Resp BP Pulse Ox 99.3 F 80 16 116/72 98 04/17/21 21:42 04/17/21 21:42 04/17/21 21:42 04/17/21 21:42 04/17/21 21:42 General appearance: Present: no acute distress - EENT Eyes: Present: PERRL, EOM intact ENT: hearing intact, clear oral mucosa - Neck Neck: Present: supple, normal ROM - Respiratory Respiratory effort: normal Plan Activity: advance as tolerated Weight Bearing Status: Weight Bear as Tolerated Care Plan Goals: Maintain good and stable mental health Plan of Treatment: The patient should be compliant with medications, not to use drugs, and not to drink alcohol. The patient understands that if suicidal ideas, homicidal ideas or any endangering feeling arise, the patient should seek assistance including, but not limited to crisis hotline, and emergency room. Assessment: Schizophrenia Follow up with: PRIMARY CARE, [Primary Care Provider] - 7 Days Prescriptions: Divalproex [Alba Coving[place]] 500 mg PO BID #60 tablet haloperidoL [Haldol] 5 mg PO BID #60 tablet
[2021-04-18] MEDS: HALOPERIDOL 5 MG TAB PO SCH (10:07)
[2021-04-18] MEDS: FAMOTIDINE 20 MG TAB PO SCH (10:07)
[2021-04-18] MEDS: BENZTROPINE 1 MG TAB PO SCH (10:07)
[2021-04-18] MEDS: DIVALPROEX DR 500 MG TAB PO SCH (10:07)
[2021-04-18] MEDS: carBAMazepine 200 MG TAB PO SCH (10:07)
[2021-04-18 10:10] VITALS: BP 122/83
[2021-04-18] MEDS: LISINOPRIL 10 MG TAB PO SCH (10:10)
== END 2021-04-18 19:20 | disposition home or self-care (01) | DRG 885 ==
LOC: UNDOADMIN 09:15 → 3A 09:15 → 5A 17:12
PROVIDERS: ADMIT Psychiatry & Neurology Psychiatry; ATTEND Psychiatry & Neurology Psychiatry
DX: F20.9 Schizophrenia, unspecified (principal); F41.9 Anxiety disorder, unspecified; Z79.899 Other long term (current) drug therapy; I10 Essential (primary) hypertension; E87.6 Hypokalemia; F31.9 Bipolar disorder, unspecified
CPT/HCPCS: 36415; 80053; 80061; 80164; 82962; 83036; 84443; 85025; G0378; J1631; J1650

== ENCOUNTER 2022-02-12 15:13 | Emergency (ER) | payer MEDICARE ==
[2022-02-12] MEDS ORDERED: SODIUM CHLORIDE 0.9% 1000 ML 1,000 ML IV ONE (15:33)
--- NOTE | 2022-02-12 15:43 | Emergency Department Report ---
HPI - General Chief Complaint: Medical Clearance Time Seen by Provider: 02/12/22 15:25 - HPI HPI: Room 21 Patient is 71-year-old female sent from [place] for medical clearance. Patient has a history of schizophrenia and hypertension reportedly was brought in by family secondary to her ongoing paranoia and agitated behavior. Patient was eventually brought to [facility] and is sent to this ED for medical clearance. In the ED the patient denies complaints and appears agitated stating that she does not wish to speak to me because I am an evil person. When asked why she believes I am evil, the patient replies "I don't know, because you came in here asking all of these questions." ED Past Medical Hx - Past Medical History Hx Hypertension: Yes Hx Kidney Stones: Yes (Schizophrenia) - Surgical History Hx Cholecystectomy: (MYRIAM) Hx Appendectomy: (MYRIAM) - Family History Family history: no significant - Social History Smoking Status: Unknown if ever smoked Substance Use Type: None - Medications Home Medications: Home Medications Medication Instructions Recorded Confirmed Last Taken Type carBAMazepine [TEGretol] 200 mg PO BID 03/05/21 06/25/21 Unknown History lisinopriL [Lisinopril] 10 mg PO DAILY 03/05/21 06/25/21 Unknown History hydrALAZINE [Apresoline TAB] 10 mg PO Q6H PRN #120 tablet 03/13/21 06/25/21 Unknown Rx Divalproex [Alba [place]] 500 mg PO BID #60 tablet 04/18/21 06/25/21 Unknown Rx haloperidoL [Haldol] 5 mg PO BID #60 tablet 04/18/21 06/25/21 Unknown Rx AtorvaSTATin [Lipitor] 40 mg PO QHS tablet 07/03/21 Unknown Rx Benztropine [Cogentin] 1 mg PO DAILY 30 Days #30 07/03/21 Unknown Rx Melatonin [Melatonin 5MG TAB] 5 mg PO QHS PRN 30 Days #30 tablet 07/03/21 Unknown Rx VALPROIC ACID Liq [DepaKENE Liq] 250 mg PO BID 30 Days #60 oral.liqd 07/03/21 Unknown Rx haloperidoL [Haldol] 5 mg PO BID 30 Days #60 tablet 07/03/21 Unknown Rx traZODone [Desyrel] 50 mg PO QHS #30 tablet 07/03/21 Unknown Rx ED Review of Systems ROS: Stated complaint: MEDICAL CLEARANCE Other details as noted in HPI Comment: Unobtainable due to pts medical conditions Physical Exam - Physical Exam Vital Signs: Vital Signs 02/12/22 15:17 Temperature 98.1 F Pulse Rate 107 H Respiratory 18 Rate Blood Pressure 94/71 [Left] O2 Sat by Pulse 93 Oximetry Physical Exam: GENERAL: The patient is well-developed well-nourished female lying on stretcher not appearing to be in acute distress. [] HEENT: Normocephalic. Atraumatic. Extraocular motions are intact. Patient has moist mucous membranes. NECK: Supple. Trachea midline CHEST/LUNGS: Clear to auscultation. There is no respiratory distress noted. HEART/CARDIOVASCULAR: Regular. There is no tachycardia. There is no gallop rub or murmur. ABDOMEN: Abdomen is soft, nontender. Patient has normal bowel sounds. There is no abdominal distention. SKIN: There is no rash. There is no edema. There is no diaphoresis. NEURO: The patient is awake and alert but appears agitated. The patient is not cooperative with neurologic exam. The patient has normal speech. GCS 15 MUSCULOSKELETAL: There is no evidence of acute injury. ED Course Vital Signs 02/12/22 15:17 Temperature 98.1 F Pulse Rate 107 H Respiratory 18 Rate Blood Pressure 94/71 [Left] O2 Sat by Pulse 93 Oximetry ED Medical Decision Making - Lab Data Result diagrams: 02/12/22 16:39 02/12/22 16:39 Laboratory Tests 02/12/22 02/12/22 02/12/22 16:39 16:39 16:39 WBC 9.2 RBC 4.52 Hgb 13.5 Hct 38.9 MCV 86 MCH 30 MCHC 35 H RDW 13.4 Plt Count 124 L Lymph % (Auto) 8.0 L [place] % (Auto) 4.3 Eos % (Auto) 0.0 Baso % (Auto) 0.2 Lymph # (Auto) 0.7 L [place] # (Auto) 0.4 Eos # (Auto) 0.0 Baso # (Auto) 0.0 Seg Neutrophils % 87.5 H Seg Neutrophils # 8.1 H Sodium 140 Potassium 3.7 Chloride 101.8 Carbon Dioxide 23 Anion Gap 19 BUN 24 H Creatinine 1.3 H Estimated GFR 49 BUN/Creatinine Ratio 18 Glucose 104 H Calcium 9.0 Urine Color Urine Turbidity Urine pH Ur Specific [place] Urine Protein Urine Glucose (UA) Urine Ketones Urine Blood Urine Nitrite Ur Reducing Substances Urine Bilirubin Urine Ictotest Urine Urobilinogen Ur Leukocyte Esterase Urine WBC (Auto) Urine RBC (Auto) U Epithel Cells (Auto) Urine Bacteria (Auto) Ur Renal Epithelial Cell Amorphous Crystals Urine Mucus Salicylates < 0.3 L Acetaminophen Valproic Acid < 2.8 L Carbamazepine 2.0 L Plasma/Serum Alcohol 02/12/22 02/12/22 02/12/22 16:39 16:39 17:37 WBC RBC Hgb Hct MCV MCH MCHC RDW Plt Count Lymph % (Auto) [place] % (Auto) Eos % (Auto) Baso % (Auto) Lymph # (Auto) [place] # (Auto) Eos # (Auto) Baso # (Auto) Seg Neutrophils % Seg Neutrophils # Sodium Potassium Chloride Carbon Dioxide Anion Gap BUN Creatinine Estimated GFR BUN/Creatinine Ratio Glucose Calcium Urine Color [place] Urine Turbidity Hazy Urine pH 5.0 Ur Specific [place] 1.020 Urine Protein <15 mg/dl Urine Glucose (UA) Negative Urine Ketones 1+ Urine Blood 1+ Urine Nitrite Negative Ur Reducing Substances Not Reportable Urine Bilirubin 2+ Urine Ictotest Negative Urine Urobilinogen 0.0 Ur Leukocyte Esterase Trace Urine WBC (Auto) 2.0 Urine RBC (Auto) 3.0 U Epithel Cells (Auto) 16.0 H Urine Bacteria (Auto) 1+ Ur Renal Epithelial Cell 1 Amorphous Crystals 3+ Urine Mucus 2+ Salicylates Acetaminophen 5.0 L Valproic Acid Carbamazepine Plasma/Serum Alcohol < 0.01 - Differential Diagnosis Schizophrenia Critical care attestation.: If time is entered above; I have spent that time in minutes in the direct care of this critically ill patient, excluding procedure time. ED Disposition Clinical Impression: Schizophrenia Disposition: [address] [place] [address] Is pt being admited?: No Does the pt Need Aspirin: No Condition: Stable Referrals: PRIMARY CARE, [Primary Care Provider] - 3-5 Days Time of Disposition: 22:48 ([place] to [place])
[2022-02-12 17:35] LABS: Basophils % (Auto) 0.2 % (0.0-1.8); Hematocrit 38.9 % (30.3-42.9); Hemoglobin 13.5 gm/dl (10.1-14.3); Lymphocytes # (Auto) 0.7 K/mm3 (1.2-5.4); Mean Corpuscular HGB Conc 35 % (30-34); Mean Corpuscular Volume 86 fl (79-97); Monocytes # (Auto) 0.4 K/mm3 (0.0-0.8); Monocytes % (Auto) 4.3 % (0.0-7.3); Platelet Count 124 K/mm3 (140-440); Red Blood Count 4.52 M/mm3 (3.65-5.03); Red Cell Distribution Width 13.4 % (13.2-15.2)
[2022-02-12 18:29] LABS: Amorphous Crystals,Urine 3+; Bacteria,Urine 1+ /HPF (Negative); Mucus,Urine 2+ /HPF; Renal Epithelial Cells,Urine 1 /LPF
[2022-02-12 18:50] LABS: Color,Urine Amber (Yellow)
[2022-02-12 18:51] LABS: Bilirubin,Urine 2+ (Negative); Blood,Urine 1+ (Negative); Ictotest,Urine Negative (Negative); Protein,Urine <15 mg/dL mg/dL (Negative)
[2022-02-13 01:19] VITALS: BP 92/56
== END 2022-02-13 01:54 ==
LOC: ED 15:13
DX: F20.9 Schizophrenia, unspecified (principal); I10 Essential (primary) hypertension; N20.0 Calculus of kidney
CPT/HCPCS: 36415; 80048; 80156; 80164; 81001; 85025; 96360; 99284; J7030; 80320; G0480